=== PATIENT | female | born 1970 | race African-American/Black ===

== ENCOUNTER 2016-09-01 19:40 | Emergency (ER) | payer SELFPAY ==
--- NOTE | 2016-09-01 20:22 | ER Document Report ---
HPI - HPI Patient complains to provider of: sore throat, ear pain Onset: Other - 6 days Onset/Duration: Persistent Quality of pain: Achy Severity: Severe Pain Level: 5 Context: Patient presents to the emergency department with complaints of sore throat bones: Ears her for the past 6 days. Patient reports she has tried Mucinex warm salt water gargles and NyQuil and still has not relieved her symptoms. She denies fever diarrhea but reports she has been nauseated. No known exposure to strep but patient works at [employer]. Patient uses home O2 at night while she sleeps. Associated Symptoms: Earache, Nausea, Other - cold Exacerbated by: Denies Relieved by: Denies Similar symptoms previously: No Recently seen / treated by doctor: No - REPRODUCTIVE LMP: na Reproductive: DENIES: : - DERM Skin Color: Normal Past Medical History - General Information source: Patient - Social History Smoking Status: Unknown if Ever Smoked Cigarette use (# per day): No Frequency of alcohol use: None Drug Abuse: None Occupation: [employer] Family History: DM, Hypertension Patient has suicidal ideation: No Patient has homicidal ideation: No - Past Medical History Cardiac Medical History: Reports: Hx Hypertension Pulmonary Medical History: Reports: Hx Asthma, Hx Pneumonia Denies: Hx Tuberculosis Neurological Medical History: Denies: Hx Seizures Renal/ Medical History: Denies: Hx Peritoneal Dialysis Musculoskeltal Medical History: Reports Hx Arthritis - left knee Past Surgical History: Reports: Hx Oral Surgery - Immunizations Hx Diphtheria, Pertussis, Tetanus Vaccination: Yes Vertical Provider Document - CONSTITUTIONAL Agree With Documented VS: Yes Exam Limitations: No Limitations General Appearance: WD/WN, No Apparent Distress - nontoxic looking - INFECTION CONTROL TRAVEL OUTSIDE OF THE [place] IN LAST 30 DAYS: No - HEENT HEENT: Atraumatic, Normocephalic, Pharyngeal Exudate, Pharyngeal Erythema - No peritonsillar abscess good clear voice no trismus, Tympanic Membrane Red - left. negative: Conjuctival Injection, Pharyngeal Tenderness, Tympanic Membrane Bulging - NECK Neck: Normal Inspection, Supple. negative: Lymphadenopathy-Left, Lymphadenopathy-Right - RESPIRATORY Respiratory: Breath Sounds Normal, No Respiratory Distress O2 Sat by Pulse Oximetry: 96 - CARDIOVASCULAR Cardiovascular: Regular Rate, Regular Rhythm - GI/ABDOMEN Gastrointestinal: Abdomen Soft, Abdomen Non-Tender - MUSCULOSKELETAL/EXTREMETIES Musculoskeletal/Extremeties: ASHISH VIGIL - NEURO Level of Consciousness: Awake, Alert, Appropriate Motor/Sensory: No Motor Deficit - DERM Integumentary: Warm, Dry, No Rash Course - Re-evaluation Re-evalutation: 09/01/16 20:21 Patient instructed on pending strep p.o. fluids offered. 09/01/16 20:48 Patient instructed on negative strep test for throat culture pending. Patient instructed on omnicef for otitis media. Instructed to push fluids follow-up with primary care provider for recheck. She verbalized understanding to all instructions - Vital Signs Vital signs: Temp Pulse Resp BP Pulse Ox 99.2 F 105 H 20 124/73 96 09/01/16 19:53 09/01/16 19:53 09/01/16 19:53 09/01/16 19:53 09/01/16 19:53 Discharge - Discharge Clinical Impression: Sore throat, Elevated blood pressure reading Otitis media Qualifiers: Otitis media type: unspecified Laterality: left Chronicity: acute Condition: Stable Disposition: HOME, SELF-CARE Instructions: Sore Throat ([facility]), Steroid Medication Injection, Cephalosporins ( [facility]) Additional Instructions: *You have been evaluated for a sore throat, otitis media *The strep test is negative. A throat culture is pending. You will be contacted should you need different antibiotics. *Take medication as prescribed *Warm salt water gargles and throat lozenges for comfort *Do not let anyone drink/eat after you *Good hand washing *Follow-up with a primary care provider for recheck within one week *Return to ED for worsening condition change, needs Monitor your blood pressure. Your blood pressure was elevated today. This may be because you were anxious, in pain or because you need medication. It is important to follow up with your primary care provider for full evaluation. Prescriptions: Cefdinir [Omnicef 300 mg Capsule] 1 cap PO BID #20 capsule Forms: Elevated Blood Pressure
[2016-09-01] MEDS ORDERED: AMOXICILLIN TRIHYDRATE 500 MG CAPSULE PO ONE (20:49)
[2016-09-01 20:57] VITALS: BP 142/69
[2016-09-01] MEDS ORDERED: DEXAMETHASONE SOD PHOS INJ 10 MG/1 ML VIAL IM ONE (21:08)
== END 2016-09-01 21:30 | disposition home or self-care (01) ==
LOC: ER 19:40
DX: H02.9 Unspecified disorder of eyelid (principal); H66.92 Otitis media, unspecified, left ear; R11.0 Nausea; I10 Essential (primary) hypertension; J45.909 Unspecified asthma, uncomplicated; Z99.81 Dependence on supplemental oxygen
CPT/HCPCS: 99283; 96372; 87070; 87880; J1100

== ENCOUNTER 2017-01-28 14:59 | Emergency (ER) | payer SELFPAY ==
[2017-01-28] MEDS ORDERED: ASPIRIN 81 MG TABLET, CHEWABLE PO ONE (16:21)
--- NOTE | 2017-01-28 16:24 | ER Document Report ---
ED Medical Screen (RME) - General Chief Complaint: Abdominal Cramping Stated Complaint: ABDOMINAL PAIN Time Seen by Provider: 01/28/17 16:08 Mode of Arrival: Ambulatory Information source: Patient Notes: 46-year-old female presents to ED for chest pain abdominal cramping pain all over with cramping to arms and legs for a week. She states sometimes her whole body will cramp up and stay that way for about an hour then sometimes it will go away. She states she drinks water and that she urinates so much and then the cramping starts again. She states she does not remember when her last bowel movement was. She states she took for stool softeners and some mag citrate last night and had several small bowel movements but not of large wound. States she is not hungry at this time. Lungs clear abdomen tender. Patient is a very obese female. She states she also has pain in her right heel and is very painful to stand to walk on it. I have greeted and performed a rapid initial assessment of this patient. A comprehensive ED assessment and evaluation of the patient, analysis of test results and completion of medical decision making process will be conducted by an additional ED providers. TRAVEL OUTSIDE OF THE [place] IN LAST 30 DAYS: No - HPI Onset: Last week Onset/Duration: Intermittent Quality of pain: Achy, Cramping, Sharp Severity: Moderate Pain Level: 4 Associated Symptoms: Abdominal pain, Body/muscle aches, Chest pain, Other - right heel pain - Related Data Smoking: Non-smoker Frequency of alcohol use: None Drug Abuse: None Allergies/Adverse Reactions: No Known Allergies Allergy (Unverified 01/28/17 16:06) Past Medical History - Social History Chew tobacco use (# tins/day): No Frequency of alcohol use: None Drug Abuse: None - Past Medical History Cardiac Medical History: Reports: Hx Hypertension Pulmonary Medical History: Reports: Hx Asthma, Hx Pneumonia Denies: Hx Tuberculosis Neurological Medical History: Denies: Hx Seizures Renal/ Medical History: Denies: Hx Peritoneal Dialysis Musculoskeltal Medical History: Reports Hx Arthritis - left knee Past Surgical History: Reports: Hx Oral Surgery - Immunizations Hx Diphtheria, Pertussis, Tetanus Vaccination: Yes Physical Exam - Vital signs Vitals: Temp Pulse Resp BP Pulse Ox 98.5 F 95 20 153/97 H 96 01/28/17 15:30 01/28/17 15:30 01/28/17 15:30 01/28/17 15:30 01/28/17 15:30 Course - Vital Signs Vital signs: Temp Pulse Resp BP Pulse Ox 98.5 F 95 18 153/97 H 96 01/28/17 15:30 01/28/17 15:30 01/28/17 16:05 01/28/17 15:30 01/28/17 15:30
[2017-01-28] MEDS ORDERED: NORMAL SALINE 1000 ML 1,000 ML IV ONE (16:40)
[2017-01-28 17:15] LABS: ABSOLUTE EOSINOPHILS # (AUTO) 0.2 10^3/uL (0.0-0.6); ABSOLUTE LYMPHOCYTES (AUTO) 1.5 10^3/uL (0.5-4.7); ABSOLUTE MONOCYTES (AUTO) 0.9 10^3/uL (0.1-1.4); ABSOLUTE NEUT (AUTO) 4.1 10^3/uL (1.7-8.2); BASOPHILS % (AUTO) 0.4 % (0-2); EOSINOPHILS % (AUTO) 2.5 % (0-6); HEMATOCRIT 38.8 % (36.0-47.0); HEMOGLOBIN 12.1 g/dL (12.0-15.5); HGB HCT DIFFERENCE -2.5; LYMPHOCYTES % (AUTO) 21.9 % (13-45); MEAN CORPUSCULAR HEMOGLOBIN 23.5 pg (27.0-33.4); MEAN CORPUSCULAR HGB CONC 31.1 g/dL (32.0-36.0); MEAN CORPUSCULAR VOLUME 76 fl (80-97); MONOCYTES % (AUTO) 13.6 % (3-13); RED BLOOD COUNT 5.14 10^6/uL (3.72-5.28); RED CELL DISTRIBUTION WIDTH 15.8 % (11.5-14.0); SEGMENTED NEUTROPHILS % (AUTO) 61.6 % (42-78); WHITE BLOOD COUNT 6.6 10^3/uL (4.0-10.5)
[2017-01-28 17:39] LABS: ALANINE AMINOTRANSFERASE 35 U/L (9-52); ALBUMIN 4.2 g/dL (3.5-5.0); ALKALINE PHOSPHATASE 122 U/L (38-126); ASPARTATE AMINO TRANSFERASE 29 U/L (14-36); BILIRUBIN,DIRECT 0.5 mg/dL (0.0-0.4); BILIRUBIN,TOTAL 0.7 mg/dL (0.2-1.3); BLOOD UREA NITROGEN 15 mg/dL (7-20); CALCIUM 9.2 mg/dL (8.4-10.2); CHLORIDE 92 mmol/L (98-107); CREATINE KINASE 138 U/L (30-135); CREATININE RESULT 0.87 mg/dL (0.52-1.25); GLUCOSE 103 mg/dL (75-110); POTASSIUM 4.5 mmol/L (3.6-5.0); SODIUM 141.2 mmol/L (137-145); TOTAL PROTEIN 8.4 g/dL (6.3-8.2)
--- NOTE | 2017-01-28 17:39 | RADIOLOGY REPORT (SQ) ---
EXAM DESCRIPTION: ACUTE ABDOMEN SERIES COMPLETED DATE/TIME: 01/28/2017 5:26 pm REASON FOR STUDY: abdominal and chest pain COMPARISON: None. NUMBER OF VIEWS: Three views. TECHNIQUE: Frontal chest, supine abdomen and upright/decubitus abdomen radiographic images acquired. LIMITATIONS: None. FINDINGS: CHEST: Lungs clear of infiltrates. FREE AIR: None. No abnormal gas collections. BOWEL GAS PATTERN: Nonobstructive pattern. No dilated loops or air fluid levels. CALCIFICATIONS: No suspicious calcifications. HARDWARE: None in the abdomen. SOFT TISSUES: No gross mass or suggestion of organomegaly. BONES: No acute fracture. No worrisome bone lesions. Degenerative changes are identified in the low er lumbar spine at the level of the pubic symphysis. OTHER: No other significant finding. IMPRESSION: NO RADIOGRAPHIC EVIDENCE FOR ACUTE ABDOMINAL DISEASE. TECHNICAL DOCUMENTATION: JOB ID: [id number] [employer]- All Rights Reserved
--- NOTE | 2017-01-28 17:39 | RADIOLOGY REPORT (SQ) ---
EXAM DESCRIPTION: FOOT RIGHT COMPLETE COMPLETED DATE/TIME: 01/28/2017 5:26 pm REASON FOR STUDY: pain in right heel COMPARISON: 09/11/2010 NUMBER OF VIEWS: Three views. TECHNIQUE: AP, lateral and oblique radiographic images acquired of the right foot. LIMITATIONS: None. FINDINGS: MINERALIZATION: Normal. BONES: No fracture dislocation. There is a plantar calcaneal spur. There is a prominent os navicula re, an accessory ossicle. JOINTS: No effusions. SOFT TISSUES: No soft tissue swelling. No foreign body. OTHER: No other significant finding. IMPRESSION: Calcaneal spur. TECHNICAL DOCUMENTATION: JOB ID: [id number] [employer]- All Rights Reserved
[2017-01-28 17:42] LABS: ANION GAP 9 (5-19)
[2017-01-28 17:44] LABS: APPEARANCE,URINE CLEAR; BILIRUBIN,URINE NEGATIVE (NEGATIVE); GLUCOSE, URINE NEGATIVE (NEGATIVE); KETONES,URINE NEGATIVE (NEGATIVE); LEUKOCYTE ESTERASE,URINE NEGATIVE (NEGATIVE); NITRITE,URINE NEGATIVE (NEGATIVE); PROTEIN,URINE NEGATIVE (NEGATIVE); URINE SPECIFIC GRAVITY 1.004; UROBILINOGEN,URINE NEGATIVE mg/dL (<2.0)
[2017-01-28 17:51] LABS: CREATINE KINASE MB 1.09 ng/mL (<4.55)
[2017-01-28 17:54] LABS: TROPONIN I < 0.012 ng/mL
[2017-01-28 18:04] LABS: CARBON DIOXIDE 40 mmol/L (22-30)
--- NOTE | 2017-01-28 18:27 | EKG REPORT ---
SEVERITY:- NORMAL ECG - SINUS RHYTHM : Confirmed by: Mj Eller 28-Jan-2017 18:27:06
[2017-01-28] MEDS ORDERED: MINERAL OIL 30 ML UDCUP PR ONE (19:32)
--- NOTE | 2017-01-28 19:40 | ER Document Report ---
ED General - General Chief Complaint: Abdominal Cramping Stated Complaint: ABDOMINAL PAIN Time Seen by Provider: 01/28/17 16:08 Mode of Arrival: Ambulatory TRAVEL OUTSIDE OF THE [place] IN LAST 30 DAYS: No - HPI Notes: Patient is a 46-year-old female with a history of obstructive sleep apnea who presents the ED complaining of abdominal cramping, constipation 1.5 weeks. Patient states that she feels full in her abdomen and has not had a complete bowel movement in about 1-1/2 weeks. She still eating and drinking without any difficulties. She is still urinating normally. Patient states that she did have a few small bowel movements over the last couple days that were small and pebbly. Patient states that when the abdominal cramping starts she will develop cramping in her neck and her arm as well. Patient states that the cramping can last for about a half an hour at a time. This cramping has been ongoing over the last 1.5 weeks as well. Patient has tried some over-the- counter meds and stool softeners with minimal relief. Patient denies any drug allergies, smoking, drug use, or alcohol intake. Pt denies any cardiac history or abdominal surgeries. Denies h/o any clotting otherwise. No recent illness. Denies any headache, fever, neck pain, URI, sore throat, chest pain, palpitations, syncope, cough, shortness of breath, wheeze, dyspnea, nausea/ vomiting/diarrhea, urinary retention, dysuria, hematuria, back pain, loss of control of bowel or bladder, numbness/tingling, saddle anesthesia, muscle paralysis/weakness, or rash. Pt does not use BPAP/CPAP. + heel pain, no injury (rt) - Related Data Allergies/Adverse Reactions: No Known Allergies Allergy (Unverified 01/28/17 16:06) Past Medical History - General Information source: Patient - Social History Smoking Status: Never Smoker Chew tobacco use (# tins/day): No Frequency of alcohol use: None Drug Abuse: None Family History: DM, Hypertension Patient has suicidal ideation: No Patient has homicidal ideation: No - Past Medical History Cardiac Medical History: Reports: None Pulmonary Medical History: Reports: Hx Asthma, Hx Pneumonia Denies: Hx Tuberculosis Neurological Medical History: Denies: Hx Seizures Renal/ Medical History: Denies: Hx Peritoneal Dialysis Musculoskeltal Medical History: Reports Hx Arthritis - left knee Past Surgical History: Reports: Hx Oral Surgery - Immunizations Hx Diphtheria, Pertussis, Tetanus Vaccination: Yes Review of Systems - Review of Systems Notes: REVIEW OF SYSTEMS: CONSTITUTIONAL : Denies fever, chills, or sweats. Denies recent illness. EENT: Denies eye, ear, throat, or mouth pain or symptoms. Denies nasal or sinus congestion or discharge. Denies throat, tongue, or mouth swelling or difficulty swallowing. CARDIOVASCULAR: Denies chest pain. Denies palpitations or racing or irregular heart beat. Denies ankle edema. RESPIRATORY: Denies cough, cold, or chest congestion. Denies shortness of breath, difficulty breathing, or wheezing. GASTROINTESTINAL: see hpi. no melena/hematochezia GENITOURINARY: Denies difficulty urinating, painful urination, burning, frequency, blood in urine, or discharge. MUSCULOSKELETAL: see hpi--cramps SKIN: Denies rash, lesions or sores. NEUROLOGICAL: Denies confusion or altered mental status. Denies passing out or loss of consciousness. Denies dizziness or lightheadedness. Denies headache. Denies weakness or paralysis or loss of use of either side. Denies problems with gait or speech. Denies sensory loss, numbness, or tingling. ALL OTHER SYSTEMS REVIEWED AND NEGATIVE. Dictation was performed using [employer] voice recognition software Female Genitourinary: No symptoms reported Physical Exam - Vital signs Vitals: Temp Pulse Resp BP Pulse Ox 98.5 F 95 20 153/97 H 96 01/28/17 15:30 01/28/17 15:30 01/28/17 15:30 01/28/17 15:30 01/28/17 15:30 Notes: PHYSICAL EXAMINATION: GENERAL: Well-appearing, well-nourished and in no acute distress. A&Ox4 HEAD: Atraumatic, normocephalic. EYES: Pupils equal round and reactive to light, extraocular movements intact, sclera anicteric, conjunctiva are normal. ENT: Nares patent and without discharge. oropharynx clear without exudates. No tonsilar hypertrophy or erythema. Moist mucous membranes. No sinus tenderness. NECK: Normal range of motion, supple without lymphadenopathy. No rigidity/ meningismus. LUNGS: Breath sounds clear to auscultation bilaterally and equal. No wheezes rales or rhonchi. HEART: Regular rate and rhythm without murmurs, rubs, gallops. ABDOMEN: Soft, nontender, nondistended abdomen. No guarding, no rebound. No masses appreciated. Normal bowel sounds present. No CVA tenderness bilaterally. Obese. Musculoskeletal: Ext b/l: FROM to passive/active. Strength 5+/5. No focal deficits or cramps. + mild tenderness to the rt heel. Extremities: Trace pitting edema b/l LE. Peripheral pulses 2+. Capillary refill less than 3 seconds. NEUROLOGICAL: Cranial nerves grossly intact. Normal speech, normal gait. Normal sensory, motor exams PSYCH: Normal mood, normal affect. SKIN: Warm, Dry, normal turgor, no rashes or lesions noted. Course - Re-evaluation Re-evalutation: 01/28/17 22:18 Patient is an afebrile, well-hydrated, 46-year-old female who presents to the ED with constipation and abd cramping. Vitals are stable. PE is otherwise unremarkable. X-ray did reveal some stool, but no obstruction. CBC, CMP, lipase, , urinalysis all unremarkable for any acute pathology. Cardiac enzymes 2/EKG 2 unremarkable for any acute pathology as well. Patient has a heart score of 1. In enema was provided today. Patient states that she had a good bowel movement with the enema and feels much better. She has not had any other issues of cramping. Patient is tolerating p.o. Low suspicion/risk for any ACS, PE, pneumothorax, pericarditis, dissection, sepsis, meningitis, acute abdomen. Patient is aware that her condition can change from initial presentation and she needs to monitor symptoms closely and seek medical attention with any acute changes. I will send her home with a prescription for MiraLAX to use as directed. Increase water and fiber intake. Recheck with your PCM in 2-3 days. Return to the ED with any worsening/concerning symptoms otherwise as reviewed discharge. Patient is in agreement. pt does have an elevated CO2. Pt has JESSICA and does not use her CPAP/BPAP--to discuss further with her PCM. - Vital Signs Vital signs: Temp Pulse Resp BP Pulse Ox 98.5 F 95 18 153/97 H 96 01/28/17 15:30 01/28/17 15:30 01/28/17 16:05 10/16/17 15:30 01/28/17 15:30 - Laboratory Result Diagrams: 01/28/17 16:48 01/28/17 16:48 Laboratory results interpreted by me: 01/28/17 01/28/17 01/28/17 16:48 16:48 20:45 MCV 76 L MCH 23.5 L MCHC 31.1 L RDW 15.8 H Monocytes % 13.6 H VBG pCO2 65.5 H* VBG HCO3 37.1 H Chloride 92 L Carbon Dioxide 40 H* Direct Bilirubin 0.5 H Creatine Kinase 138 H Total Protein 8.4 H Discharge - Discharge Clinical Impression: Constipation Qualifiers: Constipation type: unspecified constipation type Qualified Code(s): K59.00 - Constipation, unspecified Condition: Stable Disposition: HOME, SELF-CARE Instructions: Constipation ([facility]), Stool Softener ([facility]) Additional Instructions: Maintain adequate fluid and food intake--increase fiber and water intake [place]rose diet ([employer] Bananas, rice, apples, toast, etc tylenol if needed Monitor for any worsening symptoms Miralax 1 capful twice daily for 3-4 days, then one capful daily thereafter to maintain soft stools Make sure you are staying hydrated enough to urinate and have normal BM's Recheck with your PCM in 2-3 days Consider consult with Gastroenterology for ongoing/worsening symptoms Return to the ED with any worsening symptoms and/or development of fever, headache, chest pain, palpitations, syncope, shortness of breath, trouble breathing, abdominal pain, n/v/d, blood in stool/urine, weakness, or other worsening symptoms that are concerning to you. Prescriptions: Polyethylene Glycol 3350 [Miralax] 1 cap PO DAILY #527 powder Forms: Elevated Blood Pressure, Return to Work Referrals: KARI MEA MD [ACTIVE STAFF] - Follow up as needed
[2017-01-28 21:04] LABS: VENOUS BLOOD BASE EXCESS 9.5 mmol/L; VENOUS BLOOD HCO3 37.1 mmol/L (20-32); VENOUS BLOOD PH 7.37 (7.30-7.42)
[2017-01-28 21:10] LABS: VENOUS BLOOD PCO2 65.5 mmHg (35-63)
[2017-01-28 22:46] VITALS: BP 113/65
--- NOTE | 2017-01-28 23:59 | EKG REPORT ---
SEVERITY:- NORMAL ECG - SINUS RHYTHM : Confirmed by: Mj Eller 28-Jan-2017 23:58:34
== END 2017-01-28 22:57 | disposition home or self-care (01) ==
LOC: ER 14:59
DX: K59.00 Constipation, unspecified (principal); R10.9 Unspecified abdominal pain; R25.2 Cramp and spasm
CPT/HCPCS: 93005; 99284; 36415; 82553; 82962; 82550; 83690; 84703; 85025; 80053; 81001; 84484; 82803; 74022; 73630; 93010; J3490; J7030

== ENCOUNTER 2017-05-17 00:22 | Inpatient (IN) | payer SELFPAY ==
[2017-05-17] MEDS ORDERED: IPRATROPIUM/ALBUTEROL 0.5-2.5 MG/3 ML AMPUL NEB ONE ×2 (02:42→06:05)
--- NOTE | 2017-05-17 05:02 | ER Document Report ---
ED Flu Like - General Chief Complaint: Flu Symptoms Stated Complaint: FLU LIKE SYMPTOMS Mode of Arrival: Ambulatory Information source: Patient Notes: Patient is a 46-year-old female who presents to the ER today for cough, congestion, wheezing for over a week now. Patient is not an asthmatic. Patient admits to chills but does not know if she has had a fever or not. She states she is short of breath And admits to some pain with breathing, especially after coughing spells. She also admits to headache. TRAVEL OUTSIDE OF THE [place] IN LAST 30 DAYS: No - Related Data Allergies/Adverse Reactions: No Known Allergies Allergy (Verified 05/17/17 01:12) Past Medical History - General Information source: Patient - Social History Smoking Status: Unknown if Ever Smoked Family History: DM, Hypertension - Past Medical History Cardiac Medical History: Reports: Hx Hypertension Pulmonary Medical History: Reports: Hx Asthma, Hx Pneumonia Denies: Hx Tuberculosis Neurological Medical History: Denies: Hx Seizures Renal/ Medical History: Denies: Hx Peritoneal Dialysis Musculoskeltal Medical History: Reports Hx Arthritis - left knee Past Surgical History: Reports: Hx Oral Surgery - Immunizations Hx Diphtheria, Pertussis, Tetanus Vaccination: Yes Review of Systems - Review of Systems Constitutional: See HPI EENT: No symptoms reported Cardiovascular: No symptoms reported Respiratory: See HPI Gastrointestinal: No symptoms reported Genitourinary: No symptoms reported Female Genitourinary: No symptoms reported Musculoskeletal: No symptoms reported Skin: No symptoms reported Hematologic/Lymphatic: No symptoms reported Neurological/Psychological: No symptoms reported Physical Exam - Vital signs Vitals: Temp Pulse BP Pulse Ox 97.9 F 85 146/81 H 92 05/17/17 01:17 05/17/17 01:17 05/17/17 01:17 05/17/17 01:17 - Notes Notes: PHYSICAL EXAMINATION: GENERAL: Mildly ill-appearing, but in no acute distress. HEAD: Atraumatic, normocephalic. EYES: Pupils equal round and reactive to light, extraocular movements intact, sclera anicteric, conjunctiva are normal. ENT: ear canals without erythema or foreign body, TMs pearly murillo with good bony landmarks, nares patent, oropharynx clear without exudates. Moist mucous membranes. Airway patent NECK: Normal range of motion, supple without lymphadenopathy LUNGS: Moderate expiratory wheezes, rhonchi heard in bilateral lower lung smiley , no rales HEART: Regular rate and rhythm without murmurs EXTREMITIES: Normal range of motion, no pitting edema. No cyanosis. NEUROLOGICAL: Cranial nerves grossly intact. Normal sensory/motor exams. PSYCH: Normal mood, normal affect. SKIN: Warm, Dry, normal turgor, no rashes or lesions noted Course - Re-evaluation Re-evalutation: 05/17/17 08:14 After multiple breathing treatments, prednisone, patient remains hypoxic and needs to be put on oxygen. Patient cannot be ambulated without oxygen and stay above 93%, dropping to 88% at one point. Hospitalist called to admit patient at this time awaiting callback. Azithromycin started. - Vital Signs Vital signs: Temp Pulse Resp BP Pulse Ox 97.9 F 78 20 124/74 93 05/17/17 01:17 05/17/17 05:54 05/17/17 06:01 05/17/17 06:25 05/17/17 06:24 Discharge - Discharge Clinical Impression: Hypoxia Pneumonia Qualifiers: Pneumonia type: due to unspecified organism Laterality: unspecified laterality Lung location: unspecified part of lung Qualified Code(s): J18.9 - Pneumonia, unspecified organism Condition: Stable Disposition: ADMITTED INPATIENT Admitting Provider: Hospitalist - Dr. Nagel Unit Admitted: Medical Floor
[2017-05-17 05:17] LABS: A TYPE INFLUENZA AG NEGATIVE (NEGATIVE); B INFLUENZA AG NEGATIVE (NEGATIVE)
[2017-05-17] MEDS ORDERED: PREDNISONE 20 MG TABLET PO ONE (06:05)
[2017-05-17] MEDS ORDERED: GUAIFENESIN/D-METHORPHAN (200-20 MG) SYRUP 10 ML PO ONE (06:05)
--- NOTE | 2017-05-17 07:53 | EKG REPORT ---
SEVERITY:- NORMAL ECG - SINUS RHYTHM : Confirmed by: Robbi Desai MD 17-May-2017 07:52:55
[2017-05-17] MEDS ORDERED: AZITHROMYCIN INJ 500 MG VIAL IV ONE (08:09)
[2017-05-17] MEDS ORDERED: KETOROLAC TROMETHAMINE INJ/PF 30 MG/1 ML SDV IV ONE (08:30)
--- NOTE | 2017-05-17 09:20 | RADIOLOGY REPORT (SQ) ---
EXAM DESCRIPTION: CHEST PA/LAT COMPLETED DATE/TIME: 05/17/2017 9:08 am REASON FOR STUDY: cough, body aches COMPARISON: Chest films 11/14/2009, 06/30/2014, 03/14/2015 EXAM PARAMETERS: NUMBER OF VIEWS: two views TECHNIQUE: Digital Frontal and Lateral radiographic views of the chest acquired. RADIATION DOSE: NA LIMITATIONS: none FINDINGS: LUNGS AND PLEURA: No opacities, masses or pneumothorax. No pleural effusion. MEDIASTINUM AND HILAR STRUCTURES: No masses or contour abnormalities. HEART AND VASCULAR STRUCTURES: Heart normal size. No evidence for failure. BONES: No acute findings. HARDWARE: None in the chest. OTHER: No other significant finding. IMPRESSION: NO SIGNIFICANT RADIOGRAPHIC FINDING IN THE CHEST. TECHNICAL DOCUMENTATION: JOB ID: [id number] [employer]- All Rights Reserved
[2017-05-17] MEDS ORDERED: ONDANSETRON HCL INJ/PF 4 MG/2 ML SDV IV PRN (10:47)
[2017-05-17] MEDS ORDERED: TEMAZEPAM 15 MG CAPSULE PO PRN (10:47)
[2017-05-17] MEDS ORDERED: GUAIFENESIN/D-METHORPHAN (200-20 MG) SYRUP 10 ML PO PRN (10:58)
--- NOTE | 2017-05-17 11:16 | PDOC H&P ---
History of Present Illness Admission Date/PCP: 05/17/17 08:33 Patient complains of: Cough for about 1 week with occasional white productive sputum. She denies any fever nausea vomiting. She said she tried to self medicate at home using [id number] cough medicines as well as a family members bronchodilators but she decided to come in this morning as she had difficulty sleeping overnight. History of Present Illness: AMALIA ABDI is a 46 year old female Past Medical History Cardiac Medical History: Reports: Hypertension Pulmonary Medical History: Reports: Asthma, Pneumonia Denies: Tuberculosis Neurological Medical History: Denies: Seizures Endocrine Medical History: Reports: Obesity Musculoskeltal Medical History: Reports: Arthritis - left knee Psychiatric Medical History: Reports: None Past Surgical History Past Surgical History: Reports: None Social History Smoking Status: Unknown if Ever Smoked Frequency of Alcohol Use: None Hx Recreational Drug Use: No Hx Prescription Drug Abuse: No Family History Family History: DM, Hypertension Parental Family History Reviewed: Yes - Mother has COPD Children Family History Reviewed: No Sibling(s) Family History Reviewed.: No Medication/Allergy Home Medications: No Home Medications 05/17/17 Allergies/Adverse Reactions: No Known Allergies Allergy (Verified 05/17/17 01:12) Review of Systems Constitutional: PRESENT: as per HPI Eyes: ABSENT: visual disturbances Ears: ABSENT: hearing changes Nose, Mouth, and Throat: PRESENT: as per HPI Cardiovascular: ABSENT: chest pain, dyspnea on exertion, edema, orthropnea, palpitations Respiratory: PRESENT: as per HPI, cough Gastrointestinal: ABSENT: abdominal pain, constipation, diarrhea, hematemesis, hematochezia, nausea, vomiting Genitourinary: ABSENT: dysuria, hematuria Musculoskeletal: ABSENT: joint swelling Integumentary: ABSENT: rash, wounds Neurological: ABSENT: abnormal gait, abnormal speech, confusion, dizziness, focal weakness, syncope Psychiatric: ABSENT: anxiety, depression, homidical ideation, suicidal ideation Endocrine: ABSENT: cold intolerance, heat intolerance, polydipsia, polyuria Hematologic/Lymphatic: ABSENT: easy bleeding, easy bruising Physical Exam Vital Signs: Temp Pulse Resp BP Pulse Ox 97.9 F 78 20 124/74 93 05/17/17 01:17 05/17/17 05:54 05/17/17 06:01 05/17/17 06:25 05/17/17 06:24 General appearance: PRESENT: no acute distress, cooperative, obese, well- developed, well-nourished Head exam: PRESENT: atraumatic, normocephalic Eye exam: PRESENT: conjunctiva pink, EOMI, PERRLA. ABSENT: scleral icterus Ear exam: PRESENT: normal external ear exam Mouth exam: PRESENT: moist, tongue midline Neck exam: ABSENT: carotid bruit, JVD, lymphadenopathy, thyromegaly Respiratory exam: PRESENT: decreased breath sounds, rhonchi, wheezes - Bilaterally. ABSENT: rales Cardiovascular exam: PRESENT: RRR. ABSENT: diastolic murmur, rubs, systolic murmur Pulses: PRESENT: normal dorsalis pedis pul Vascular exam: PRESENT: normal capillary refill GI/Abdominal exam: PRESENT: normal bowel sounds, soft. ABSENT: distended, guarding, mass, organolmegaly, rebound, tenderness Rectal exam: PRESENT: deferred Extremities exam: PRESENT: full ROM. ABSENT: calf tenderness, clubbing, pedal edema Musculoskeletal exam: PRESENT: ambulatory Neurological exam: PRESENT: alert, awake, oriented to person, oriented to place , oriented to time, oriented to situation, CN II-XII grossly intact. ABSENT: motor sensory deficit Psychiatric exam: PRESENT: appropriate affect, normal mood. ABSENT: homicidal ideation, suicidal ideation Skin exam: PRESENT: dry, intact, warm. ABSENT: cyanosis, rash Results Laboratory Results: Pending Impressions: Chest X-Ray 05/17/17 05:12 IMPRESSION: NO SIGNIFICANT RADIOGRAPHIC FINDING IN THE CHEST. Assessment & Plan - Diagnosis (1) Acute respiratory failure Qualifiers: Respiratory failure complication: hypoxia Qualified Code(s): J96.01 - Acute respiratory failure with hypoxia Is this a current diagnosis for this admission?: Yes Plan: Oxygen support, bronchodilators and steroids. (2) Pneumonia Qualifiers: Pneumonia type: due to unspecified organism Laterality: unspecified laterality Lung location: unspecified part of lung Qualified Code(s): J18.9 - Pneumonia, unspecified organism Is this a current diagnosis for this admission?: Yes Plan: Likely atypical including Viral. Will place on Empiric Levaquin and antitussives and continue supportive care (3) Morbid (severe) obesity due to excess calories Is this a current diagnosis for this admission?: Yes Plan: Weight loss encouraged - Time Time Spent: 30 to 50 Minutes Medications reviewed and adjusted accordingly: Yes Anticipated discharge: Home Within: within 48 hours - Inpatient Certification Medical Necessity: Need for Nebulizer Therapy and Monitoring of Response, Need for IV Antibiotics - Plan Summary Plan Summary: Obtain routine CBC, BMP as none currently available
[2017-05-17 12:09] LABS: ABSOLUTE LYMPHOCYTES (AUTO) 0.5 10^3/uL (0.5-4.7); ABSOLUTE MONOCYTES (AUTO) 0.4 10^3/uL (0.1-1.4); ABSOLUTE NEUT (AUTO) 4.9 10^3/uL (1.7-8.2); BASOPHILS % (AUTO) 0.3 % (0-2); EOSINOPHILS % (AUTO) 0.5 % (0-6); HEMATOCRIT 38.2 % (36.0-47.0); HEMOGLOBIN 12.1 g/dL (12.0-15.5); LYMPHOCYTES % (AUTO) 9.2 % (13-45); MEAN CORPUSCULAR HEMOGLOBIN 23.9 pg (27.0-33.4); MEAN CORPUSCULAR HGB CONC 31.6 g/dL (32.0-36.0); MEAN CORPUSCULAR VOLUME 76 fl (80-97); MONOCYTES % (AUTO) 6.1 % (3-13); PLATELET COUNT 221 10^3/uL (150-450); RED BLOOD COUNT 5.05 10^6/uL (3.72-5.28); RED CELL DISTRIBUTION WIDTH 16.7 % (11.5-14.0); SEGMENTED NEUTROPHILS % (AUTO) 83.9 % (42-78); TOTAL CELLS COUNTED % (AUTO) 100 %; WHITE BLOOD COUNT 5.9 10^3/uL (4.0-10.5)
[2017-05-17] MEDS ORDERED: LEVOFLOXACIN 750 MG TABLET PO ONE ×2 (12:30→17:00)
[2017-05-17 12:31] LABS: ANION GAP 9 (5-19); BLOOD UREA NITROGEN 14 mg/dL (7-20); CALCIUM 8.8 mg/dL (8.4-10.2); CARBON DIOXIDE 34 mmol/L (22-30); CHLORIDE 97 mmol/L (98-107); GLUCOSE 130 mg/dL (75-110); MAGNESIUM 2.3 mg/dL (1.6-2.3); POTASSIUM 5.1 mmol/L (3.6-5.0)
[2017-05-17] MEDS ORDERED: ENOXAPARIN SODIUM INJ 40 MG/0.4 ML DISP.SYRIN SUBCUT ONE ×2 (13:00→17:00)
[2017-05-17] MEDS ORDERED: BENZONATATE 100 MG CAPSULE PO SCH (14:00)
[2017-05-17] MEDS: ALBUTEROL SULFATE 0.083% NEB 2.5 MG/3 ML AMPUL NEB SCH ×2 (14:08→20:33)
[2017-05-17] MEDS: BENZONATATE 100 MG CAPSULE PO SCH (17:59)
[2017-05-17] MEDS: 1/2 NORMAL SALINE 1,000 ML IV PRN (18:09)
[2017-05-17] MEDS: OXYCODONE-ACETAMINOPHEN 5-325 MG TABLET PO PRN (22:04)
[2017-05-18] MEDS: BENZONATATE 100 MG CAPSULE PO SCH ×3 (01:26→17:03)
[2017-05-18] MEDS: ALBUTEROL SULFATE 0.083% NEB 2.5 MG/3 ML AMPUL NEB SCH ×4 (01:39→19:44)
[2017-05-18] MEDS: OXYCODONE-ACETAMINOPHEN 5-325 MG TABLET PO PRN (04:09)
[2017-05-18] MEDS: IPRATROPIUM/ALBUTEROL 0.5-2.5 MG/3 ML AMPUL NEB PRN ×2 (04:37→22:48)
[2017-05-18] MEDS: 1/2 NORMAL SALINE 1,000 ML IV PRN (04:41)
[2017-05-18] MEDS: ENOXAPARIN SODIUM INJ 40 MG/0.4 ML DISP.SYRIN SUBCUT SCH (09:32)
[2017-05-18] MEDS: DOCUSATE SODIUM 100 MG CAPSULE PO SCH (09:34)
[2017-05-18] MEDS: LEVOFLOXACIN 750 MG TABLET PO SCH (09:34)
[2017-05-18] MEDS ORDERED: PREDNISONE 20 MG TABLET PO SCH (10:00)
[2017-05-18] MEDS ORDERED: LEVOFLOXACIN 750 MG TABLET PO SCH (10:00)
[2017-05-18] MEDS: ACETAMINOPHEN 325 MG TABLET PO PRN (10:57)
--- NOTE | 2017-05-18 13:05 | PDOC PROGRESS REPORT ---
Subjective Progress Note for:: 05/18/17 Subjective:: Still wheezing but feels better today. There is no cough, fever, nausea vomiting. Reason For Visit: ACUTE HYPOXEMIC RESPIRATORY FAILURE,POSSIBLE Physical Exam Vital Signs: Temp Pulse Resp BP Pulse Ox 97.5 F 79 18 111/57 L 95 05/18/17 11:47 05/18/17 11:47 05/18/17 11:47 05/18/17 11:47 05/18/17 11:47 Intake & Output 05/17/17 05/18/17 05/19/17 06:59 06:59 06:59 Intake Total 2150 240 Output Total 20 Balance 2130 240 Weight 146 kg General appearance: PRESENT: no acute distress, morbidly obese, well-developed, well-nourished Head exam: PRESENT: atraumatic, normocephalic Eye exam: PRESENT: conjunctiva pink, EOMI, PERRLA. ABSENT: scleral icterus Ear exam: PRESENT: normal external ear exam Mouth exam: PRESENT: moist, tongue midline Neck exam: ABSENT: carotid bruit, JVD, lymphadenopathy, thyromegaly Respiratory exam: PRESENT: decreased breath sounds, rhonchi, wheezes - Bilaterally. ABSENT: accessory muscle use, chest wall tenderness, rales Cardiovascular exam: PRESENT: RRR. ABSENT: diastolic murmur, rubs, systolic murmur Pulses: PRESENT: normal dorsalis pedis pul Vascular exam: PRESENT: normal capillary refill GI/Abdominal exam: PRESENT: normal bowel sounds, soft. ABSENT: distended, guarding, mass, organolmegaly, rebound, tenderness Rectal exam: PRESENT: deferred Extremities exam: PRESENT: full ROM. ABSENT: calf tenderness, clubbing, pedal edema Neurological exam: PRESENT: alert, awake, oriented to person, oriented to place , oriented to time, oriented to situation, CN II-XII grossly intact. ABSENT: motor sensory deficit Psychiatric exam: PRESENT: appropriate affect, normal mood. ABSENT: homicidal ideation, suicidal ideation Skin exam: PRESENT: dry, intact, warm. ABSENT: cyanosis, rash Results Laboratory Results: 05/17/17 11:50 05/17/17 11:50 Impressions: Chest X-Ray 05/17/17 05:12 IMPRESSION: NO SIGNIFICANT RADIOGRAPHIC FINDING IN THE CHEST. Assessment & Plan - Diagnosis (1) Acute respiratory failure Qualifiers: Respiratory failure complication: hypoxia Qualified Code(s): J96.01 - Acute respiratory failure with hypoxia Is this a current diagnosis for this admission?: Yes Plan: Oxygen support, bronchodilators and I will change her steroids to IV as patient is still bronchospastic (2) Pneumonia Qualifiers: Pneumonia type: due to unspecified organism Laterality: unspecified laterality Lung location: unspecified part of lung Qualified Code(s): J18.9 - Pneumonia, unspecified organism Is this a current diagnosis for this admission?: Yes Plan: Likely atypical including Viral. Continue Levaquin and supportive care (3) Morbid (severe) obesity due to excess calories Is this a current diagnosis for this admission?: Yes Plan: Weight loss encouraged - Time Time Spent with patient: 15-24 minutes Smoking Cessation Education: 3 to 10 minutes Medications reviewed and adjusted accordingly: Yes Anticipated discharge: Home - Inpatient Certification Medical Necessity: Need for Nebulizer Therapy and Monitoring of Response
[2017-05-18] MEDS: METHYLPREDNISOLONE INJ 40 MG/1 ML SDV IV SCH (17:04)
[2017-05-19] MEDS: METHYLPREDNISOLONE INJ 40 MG/1 ML SDV IV SCH ×5 (00:07→23:06)
[2017-05-19] MEDS: MAG HYDROX/AL HYDROX/SIMETH SUSP 30 ML UDCUP PO PRN ×2 (00:07→20:36)
[2017-05-19] MEDS: 1/2 NORMAL SALINE 1,000 ML IV PRN ×3 (00:08→21:07)
[2017-05-19] MEDS: ALBUTEROL SULFATE 0.083% NEB 2.5 MG/3 ML AMPUL NEB SCH ×4 (01:49→19:13)
[2017-05-19] MEDS: BENZONATATE 100 MG CAPSULE PO SCH ×3 (02:06→17:12)
[2017-05-19] MEDS: ACETAMINOPHEN 325 MG TABLET PO PRN (07:59)
[2017-05-19] MEDS: LEVOFLOXACIN 750 MG TABLET PO SCH (09:11)
[2017-05-19] MEDS: ENOXAPARIN SODIUM INJ 40 MG/0.4 ML DISP.SYRIN SUBCUT SCH (09:11)
[2017-05-19] MEDS: DOCUSATE SODIUM 100 MG CAPSULE PO SCH (09:12)
--- NOTE | 2017-05-19 15:56 | PDOC PROGRESS REPORT ---
Subjective Progress Note for:: 05/19/17 Subjective:: Wheezing improved. There is no cough, fever, nausea vomiting. Reason For Visit: ACUTE HYPOXEMIC RESPIRATORY FAILURE,POSSIBLE Physical Exam Vital Signs: Temp Pulse Resp BP Pulse Ox 97.8 F 81 20 144/61 H 100 05/19/17 15:34 05/19/17 15:34 05/19/17 15:34 05/19/17 15:34 05/19/17 15:34 Intake & Output 05/18/17 05/19/17 05/20/17 06:59 06:59 06:59 Intake Total 2150 2662 Output Total 20 1200 Balance 2130 1462 Weight 146 kg 146.5 kg General appearance: PRESENT: no acute distress, well-developed, well-nourished Head exam: PRESENT: atraumatic, normocephalic Eye exam: PRESENT: conjunctiva pink, EOMI, PERRLA. ABSENT: scleral icterus Ear exam: PRESENT: normal external ear exam Mouth exam: PRESENT: moist, tongue midline Neck exam: ABSENT: carotid bruit, JVD, lymphadenopathy, thyromegaly Respiratory exam: PRESENT: rhonchi, wheezes - Bilateral but improved. ABSENT: rales Cardiovascular exam: PRESENT: RRR. ABSENT: diastolic murmur, rubs, systolic murmur Pulses: PRESENT: normal dorsalis pedis pul Vascular exam: PRESENT: normal capillary refill GI/Abdominal exam: PRESENT: normal bowel sounds, soft. ABSENT: distended, guarding, mass, organolmegaly, rebound, tenderness Rectal exam: PRESENT: deferred Extremities exam: PRESENT: full ROM. ABSENT: calf tenderness, clubbing, pedal edema Neurological exam: PRESENT: alert, awake, oriented to person, oriented to place , oriented to time, oriented to situation, CN II-XII grossly intact. ABSENT: motor sensory deficit Psychiatric exam: PRESENT: appropriate affect, normal mood. ABSENT: homicidal ideation, suicidal ideation Skin exam: PRESENT: dry, intact, warm. ABSENT: cyanosis, rash Results Laboratory Results: 05/17/17 11:50 05/17/17 11:50 Impressions: Chest X-Ray 05/17/17 05:12 IMPRESSION: NO SIGNIFICANT RADIOGRAPHIC FINDING IN THE CHEST. Assessment & Plan - Diagnosis (1) Acute respiratory failure Qualifiers: Respiratory failure complication: hypoxia Qualified Code(s): J96.01 - Acute respiratory failure with hypoxia Is this a current diagnosis for this admission?: Yes Plan: Oxygen support, bronchodilators and cont IV steroids as patient is still bronchospastic but improved (2) Pneumonia Qualifiers: Pneumonia type: due to unspecified organism Laterality: unspecified laterality Lung location: unspecified part of lung Qualified Code(s): J18.9 - Pneumonia, unspecified organism Is this a current diagnosis for this admission?: Yes Plan: Likely atypical including Viral. Continue Levaquin and supportive care (3) Morbid (severe) obesity due to excess calories Is this a current diagnosis for this admission?: Yes Plan: Weight loss encouraged (4) Hypoxia Is this a current diagnosis for this admission?: Yes Plan: O2 support - Time Time Spent with patient: 15-24 minutes Medications reviewed and adjusted accordingly: Yes Anticipated discharge: Home - Inpatient Certification Medical Necessity: Need for Nebulizer Therapy and Monitoring of Response, Need for IV Antibiotics
[2017-05-20] MEDS ORDERED: GUAIFENESIN/D-METHORPHAN (200-20 MG) SYRUP 10 ML ONE (00:36)
[2017-05-20] MEDS: BENZONATATE 100 MG CAPSULE PO SCH ×3 (01:11→17:41)
[2017-05-20] MEDS: ALBUTEROL SULFATE 0.083% NEB 2.5 MG/3 ML AMPUL NEB SCH ×2 (01:53→07:35)
[2017-05-20] MEDS: METHYLPREDNISOLONE INJ 40 MG/1 ML SDV IV SCH ×4 (06:08→23:28)
[2017-05-20 07:24] LABS: ABSOLUTE LYMPHOCYTES (AUTO) 1.4 10^3/uL (0.5-4.7); ABSOLUTE MONOCYTES (AUTO) 1.5 10^3/uL (0.1-1.4); ABSOLUTE NEUT (AUTO) 10.8 10^3/uL (1.7-8.2); BASOPHILS % (AUTO) 0.2 % (0-2); HEMATOCRIT 37.1 % (36.0-47.0); HEMOGLOBIN 11.3 g/dL (12.0-15.5); LYMPHOCYTES % (AUTO) 10.3 % (13-45); MEAN CORPUSCULAR HEMOGLOBIN 23.6 pg (27.0-33.4); MEAN CORPUSCULAR HGB CONC 30.5 g/dL (32.0-36.0); MEAN CORPUSCULAR VOLUME 77 fl (80-97); MONOCYTES % (AUTO) 10.6 % (3-13); PLATELET COUNT 231 10^3/uL (150-450); RED CELL DISTRIBUTION WIDTH 16.6 % (11.5-14.0); SEGMENTED NEUTROPHILS % (AUTO) 78.9 % (42-78); TOTAL CELLS COUNTED % (AUTO) 100 %
[2017-05-20 07:33] LABS: WHITE BLOOD COUNT 13.7 10^3/uL (4.0-10.5)
[2017-05-20 07:40] LABS: ANION GAP 7 (5-19); BLOOD UREA NITROGEN 20 mg/dL (7-20); CALCIUM 9.3 mg/dL (8.4-10.2); CARBON DIOXIDE 32 mmol/L (22-30); CHLORIDE 99 mmol/L (98-107); GLUCOSE 189 mg/dL (75-110); POTASSIUM 5.1 mmol/L (3.6-5.0); SODIUM 138.4 mmol/L (137-145)
[2017-05-20] MEDS: ENOXAPARIN SODIUM INJ 40 MG/0.4 ML DISP.SYRIN SUBCUT SCH (09:32)
[2017-05-20] MEDS: 1/2 NORMAL SALINE 1,000 ML IV PRN ×2 (09:33→18:12)
[2017-05-20] MEDS: DOCUSATE SODIUM 100 MG CAPSULE PO SCH (09:36)
[2017-05-20] MEDS: LEVOFLOXACIN 750 MG TABLET PO SCH (09:48)
[2017-05-20] MEDS: IPRATROPIUM/ALBUTEROL 0.5-2.5 MG/3 ML AMPUL NEB PRN (10:35)
[2017-05-20] MEDS ORDERED: ALBUTEROL SULFATE 0.083% NEB 2.5 MG/3 ML AMPUL NEB PRN (13:00)
--- NOTE | 2017-05-20 13:04 | PDOC PROGRESS REPORT ---
Subjective Progress Note for:: 05/20/17 Subjective:: Feels better, still rhonchus There is no cough, fever, nausea vomiting. Reason For Visit: ACUTE HYPOXEMIC RESPIRATORY FAILURE,POSSIBLE Physical Exam Vital Signs: Temp Pulse Resp BP Pulse Ox 97.7 F 82 18 121/71 97 05/20/17 08:02 05/20/17 10:35 05/20/17 10:35 05/20/17 08:02 05/20/17 10:35 Intake & Output 05/19/17 05/20/17 05/21/17 06:59 06:59 06:59 Intake Total 2662 901 Output Total 1200 Balance 1462 901 Weight 146.5 kg 146 kg General appearance: PRESENT: well-developed, well-nourished Head exam: PRESENT: atraumatic Eye exam: PRESENT: conjunctiva pink, EOMI, PERRLA. ABSENT: scleral icterus Respiratory exam: PRESENT: crackles, decreased breath sounds, rhonchi, unlabored , wheezes. ABSENT: accessory muscle use Cardiovascular exam: PRESENT: RRR. ABSENT: diastolic murmur, rubs, systolic murmur GI/Abdominal exam: PRESENT: normal bowel sounds, soft. ABSENT: distended, guarding, mass, organolmegaly, rebound, tenderness Rectal exam: PRESENT: deferred Musculoskeletal exam: PRESENT: ambulatory, deformity, dislocation, full ROM, normal inspection, tenderness, other Neurological exam: PRESENT: alert, awake, oriented to person, oriented to place , oriented to time, oriented to situation, CN II-XII grossly intact. ABSENT: motor sensory deficit Results Laboratory Results: 05/20/17 06:24 05/20/17 06:24 05/20/17 05/20/17 06:24 06:24 WBC 13.7 H D RBC 4.80 Hgb 11.3 L Hct 37.1 MCV 77 L MCH 23.6 L MCHC 30.5 L RDW 16.6 H Plt Count 231 Seg Neutrophils % 78.9 H Lymphocytes % 10.3 L Monocytes % 10.6 Eosinophils % 0.0 Basophils % 0.2 Absolute Neutrophils 10.8 H Absolute Lymphocytes 1.4 Absolute Monocytes 1.5 H Absolute Eosinophils 0.0 Absolute Basophils 0.0 Sodium 138.4 Potassium 5.1 H Chloride 99 Carbon Dioxide 32 H Anion Gap 7 BUN 20 Creatinine 0.82 Est GFR ( Amer) > 60 Est GFR (Non-Af Amer) > 60 Glucose 189 H Calcium 9.3 Impressions: Chest X-Ray 05/17/17 05:12 IMPRESSION: NO SIGNIFICANT RADIOGRAPHIC FINDING IN THE CHEST. Assessment & Plan - Diagnosis (1) Acute respiratory failure Qualifiers: Respiratory failure complication: hypoxia Qualified Code(s): J96.01 - Acute respiratory failure with hypoxia Is this a current diagnosis for this admission?: Yes Plan: Oxygen support, bronchodilators and cont IV steroids as patient is still bronchospastic but improved Will continue current management (2) Pneumonia Qualifiers: Pneumonia type: due to unspecified organism Laterality: unspecified laterality Lung location: unspecified part of lung Qualified Code(s): J18.9 - Pneumonia, unspecified organism Is this a current diagnosis for this admission?: Yes Plan: Likely atypical including Viral. Continue Levaquin and supportive care (3) Morbid (severe) obesity due to excess calories Is this a current diagnosis for this admission?: Yes Plan: Weight loss encouraged (4) Hypoxia Is this a current diagnosis for this admission?: Yes Plan: O2 support (5) Leukocytosis, unspecified Is this a current diagnosis for this admission?: Yes Plan: Secondary to steroids - Time Time Spent with patient: 15-24 minutes Medications reviewed and adjusted accordingly: Yes Anticipated discharge: Home Within: within 72 hours - Inpatient Certification Medical Necessity: Need for Nebulizer Therapy and Monitoring of Response
[2017-05-20] MEDS ORDERED: GUAIFENESIN/CODEINE PHOS 100-10 MG/ 5 ML UDC PO PRN (13:05)
[2017-05-20] MEDS ORDERED: IPRATROPIUM/ALBUTEROL 0.5-2.5 MG/3 ML AMPUL NEB ONE (13:25)
[2017-05-20] MEDS: IPRATROPIUM/ALBUTEROL 0.5-2.5 MG/3 ML AMPUL NEB SCH ×2 (13:41→19:44)
[2017-05-20] MEDS: MAG HYDROX/AL HYDROX/SIMETH SUSP 30 ML UDCUP PO PRN (21:24)
[2017-05-21] MEDS: IPRATROPIUM/ALBUTEROL 0.5-2.5 MG/3 ML AMPUL NEB SCH ×4 (02:19→19:46)
[2017-05-21] MEDS: BENZONATATE 100 MG CAPSULE PO SCH ×3 (02:23→18:10)
[2017-05-21] MEDS: METHYLPREDNISOLONE INJ 40 MG/1 ML SDV IV SCH ×3 (05:15→21:40)
[2017-05-21] MEDS: 1/2 NORMAL SALINE 1,000 ML IV PRN (05:19)
[2017-05-21] MEDS: LEVOFLOXACIN 750 MG TABLET PO SCH (09:51)
[2017-05-21] MEDS: ENOXAPARIN SODIUM INJ 40 MG/0.4 ML DISP.SYRIN SUBCUT SCH (09:51)
[2017-05-21] MEDS: DOCUSATE SODIUM 100 MG CAPSULE PO SCH (09:51)
--- NOTE | 2017-05-21 11:25 | PDOC PROGRESS REPORT ---
Subjective Progress Note for:: 05/21/17 Subjective:: Feels better, still wheezing but able to speak in full sentences, ambulate There is no cough, fever, nausea vomiting. Reason For Visit: ACUTE HYPOXEMIC RESPIRATORY FAILURE,POSSIBLE Physical Exam Vital Signs: Temp Pulse Resp BP Pulse Ox 97.6 F 53 L 20 137/94 H 100 05/21/17 08:28 05/21/17 08:28 05/21/17 08:28 05/21/17 08:28 05/21/17 08:28 Intake & Output 05/20/17 05/21/17 05/22/17 06:59 06:59 06:59 Intake Total 901 1040 Balance 901 1040 Weight 146 kg 150.7 kg General appearance: PRESENT: no acute distress, cooperative, obese, well- developed, well-nourished Head exam: PRESENT: atraumatic Eye exam: PRESENT: conjunctiva pink, EOMI, PERRLA. ABSENT: scleral icterus Ear exam: PRESENT: normal external ear exam Mouth exam: PRESENT: moist, tongue midline Respiratory exam: PRESENT: decreased breath sounds, rhonchi - scattered, wheezes - bilat. ABSENT: accessory muscle use, chest wall tenderness, rales, tachypnea Cardiovascular exam: PRESENT: RRR. ABSENT: diastolic murmur, rubs, systolic murmur Pulses: PRESENT: normal dorsalis pedis pul GI/Abdominal exam: PRESENT: normal bowel sounds, soft. ABSENT: distended, guarding, mass, organolmegaly, rebound, tenderness Rectal exam: PRESENT: deferred Musculoskeletal exam: PRESENT: ambulatory, full ROM Psychiatric exam: PRESENT: appropriate affect, normal mood. ABSENT: homicidal ideation, suicidal ideation Results Laboratory Results: 05/20/17 06:24 05/20/17 06:24 Impressions: Chest X-Ray 05/17/17 05:12 IMPRESSION: NO SIGNIFICANT RADIOGRAPHIC FINDING IN THE CHEST. Assessment & Plan - Diagnosis (1) Acute respiratory failure Qualifiers: Respiratory failure complication: hypoxia Qualified Code(s): J96.01 - Acute respiratory failure with hypoxia Is this a current diagnosis for this admission?: Yes Plan: Oxygen support, bronchodilators and cont IV steroids as patient is still bronchospastic but improved Due to the persistence of bronchospasm I will go ahead and obtain a CTA to rule out PE as well as a two-dimensional echocardiogram to rule out heart failure however at I believe with all of these are highly unlikely. (2) Pneumonia Qualifiers: Pneumonia type: due to unspecified organism Laterality: unspecified laterality Lung location: unspecified part of lung Qualified Code(s): J18.9 - Pneumonia, unspecified organism Is this a current diagnosis for this admission?: Yes Plan: Likely atypical including Viral. Continue Levaquin and supportive care I will go ahead and start tapering steroids as rhonchi does sound better today (3) Morbid (severe) obesity due to excess calories Is this a current diagnosis for this admission?: Yes Plan: Weight loss encouraged (4) Hypoxia Is this a current diagnosis for this admission?: Yes Plan: O2 support Encouraged her to ambulate as tolerated (5) Leukocytosis, unspecified Is this a current diagnosis for this admission?: Yes Plan: Secondary to steroids We will obtain CBC in a.m. - Time Time Spent with patient: 15-24 minutes Medications reviewed and adjusted accordingly: Yes Anticipated discharge: Home Within: within 72 hours - Inpatient Certification Medical Necessity: Need For Continuous Telemetry Monitoring, Risk of Complication if Not Cared For in Hospital
--- NOTE | 2017-05-21 22:54 | RADIOLOGY REPORT (SQ) ---
EXAM DESCRIPTION: CTA CHEST COMPLETED DATE/TIME: 05/21/2017 10:40 pm REASON FOR STUDY: Persistent bronchospasm COMPARISON: None. TECHNIQUE: CT scan of the chest performed using helical scanning technique with dynamic intravenous contrast injection. Images reviewed with lung, soft tissue and bone windows. Reconstructed coronal and sagittal MPR images reviewed. Additional 3 dimensional post-processing performed to develop Maximal Intensity Projection images (CO P). All images stored on PACS. All CT scanners at this facility use dose modulation, iterative reconstruction, and/or weight based d osing when appropriate to reduce radiation dose to as low as reasonably achievable (ALARA). [facility]: Dose Right [facility]: CareDose [facility]: Dose Right [facility]: Teradose 4D [facility]: [employer] CONTRAST TYPE AND DOSE: contrast/concentration: Isovue 370.00 mg/ml; Total Contrast Delivered: 82.0 ml; Total Saline Delivered: 52.0 ml Contrast bolus optimized for the pulmonary arteries. Not diagnostic for the aorta. RENAL FUNCTION: GFR > 60. RADIATION DOSE: CT Rad equipment meets quality standard of care and radiation dose reduction techniq ues were employed. CTDIvol: 35.2 - 51.0 mGy. DLP: 1771 mGy-cm. . LIMITATIONS: None. FINDINGS: LUNGS AND PLEURA: No masses, infiltrates, pneumothorax. No pleural effusions, calcificati ons. AORTA AND GREAT VESSELS: No aneurysm. Contrast bolus not optimized for the aorta. HEART: No pericardial effusion. No significant coronary artery calcifications. PULMONARY ARTERIES: No emboli visualized in the main pulmonary arteries or the segmental branches. HILAR AND MEDIASTINAL STRUCTURES: No identified masses or abnormal nodes. HARDWARE: None in the chest. UPPER ABDOMEN: No significant findings. Limited exam. THYROID AND OTHER SOFT TISSUES: No masses. No adenopathy. BONES: No acute or significant finding. 3D MIPS: Confirm above findings. OTHER: No other significant finding. IMPRESSION: NORMAL CTA OF THE CHEST. NO PULMONARY EMBOLI. COMMENT: Quality ID # [id number]: Final reports with documentation of one or more dose reduction techniques (e.g., Automated exposure control, adjustment of the mA and/or kV according to patient size, use of iterative reconstruction technique) TECHNICAL DOCUMENTATION: JOB ID: [id number] [place]-72 2010 [employer]- All Rights Reserved
[2017-05-21] MEDS: ACETAMINOPHEN 325 MG TABLET PO PRN (23:43)
[2017-05-22] MEDS: BENZONATATE 100 MG CAPSULE PO SCH ×3 (02:22→18:48)
[2017-05-22] MEDS: IPRATROPIUM/ALBUTEROL 0.5-2.5 MG/3 ML AMPUL NEB SCH ×4 (02:25→20:41)
[2017-05-22] MEDS: METHYLPREDNISOLONE INJ 40 MG/1 ML SDV IV SCH ×2 (05:59→18:48)
[2017-05-22 07:25] LABS: ANION GAP 7 (5-19); BLOOD UREA NITROGEN 29 mg/dL (7-20); CALCIUM 9.3 mg/dL (8.4-10.2); CARBON DIOXIDE 36 mmol/L (22-30); CHLORIDE 96 mmol/L (98-107); GLUCOSE 222 mg/dL (75-110); POTASSIUM 4.7 mmol/L (3.6-5.0); SODIUM 138.8 mmol/L (137-145)
[2017-05-22 07:31] LABS: HEMATOCRIT 40.1 % (36.0-47.0); HEMOGLOBIN 12.3 g/dL (12.0-15.5); MEAN CORPUSCULAR HEMOGLOBIN 23.6 pg (27.0-33.4); MEAN CORPUSCULAR HGB CONC 30.8 g/dL (32.0-36.0); MEAN CORPUSCULAR VOLUME 77 fl (80-97); PLATELET COUNT 211 10^3/uL (150-450); RED BLOOD COUNT 5.23 10^6/uL (3.72-5.28); RED CELL DISTRIBUTION WIDTH 16.8 % (11.5-14.0); WHITE BLOOD COUNT 11.7 10^3/uL (4.0-10.5)
[2017-05-22 08:25] LABS: ABSOLUTE LYMPHOCYTES# (MANUAL) 2.3 10^3/uL (0.5-4.7); ABSOLUTE MONOCYTES # (MANUAL) 0.9 10^3/uL (0.1-1.4); ABSOLUTE NEUTROPHILS# (MANUAL) 8.4 10^3/uL (1.7-8.2); BAND NEUTROPHILS % (MANUAL) 7 % (3-5); BASOPHILS % (MANUAL) 0 % (0-2); EOSINOPHILS % (MANUAL) 0 % (0-6); LYMPHOCYTES % (MANUAL) 19 % (13-45); MONOCYTES % (MANUAL) 8 % (3-13); SEGMENTED NEUTROPHILS % (MAN) 65 % (42-78); TOTAL CELLS COUNTED 100
[2017-05-22 08:26] LABS: ANISOCYTOSIS 1+; PLATELET COMMENT ADEQUATE; TOXIC GRANULATION 1+; TOXIC VACUOLATION PRESENT
[2017-05-22] MEDS: DOCUSATE SODIUM 100 MG CAPSULE PO SCH (10:32)
[2017-05-22] MEDS: LEVOFLOXACIN 750 MG TABLET PO SCH (10:32)
[2017-05-22] MEDS: ENOXAPARIN SODIUM INJ 40 MG/0.4 ML DISP.SYRIN SUBCUT SCH (10:32)
--- NOTE | 2017-05-22 10:43 | XCELERA REPORT ---
[address] [address] Transthoracic Echocardiogram Report Name: AMALIA ABDI Age: 46 yrs Gender: Female : 1970 Patient Status: Inpatient Patient Location: [address] [place] [address] Study Date: 05/22/2017 09:32 AM Height: 64 in Weight: 332 lb BSA: 2.4 m2 Procedure: A complete two-dimensional transthoracic echocardiogram was performed (2D, M-mode, spectral and color flow Doppler). The study was technically adequate with some images being suboptimal in quality. Reason For Study: Hypoxia, Bronchospasm Ordering Physician: MARYAN DANIELSON Performed By: Leydi Jacobo Interpretation Summary The left ventricular ejection fraction is normal. The right ventricle is moderately dilated. The right ventricle appears to be hypertrophied The right ventricular systolic function is borderline reduced. Best estimated RVSP is approximately 60-70 mm/Hg. There is servere pulmonary hypertension by echo There is borderline concentric left ventricular hypertrophy. Doppler measurements suggest impaired left ventricular relaxation, which is associated with grade I/IV or mild diastolic dysfunction The left ventricle is grossly normal size. Wall motion cannot be accurately commented on, but no definite regional wall motion abnormalities noted. The right atrium is mildly dilated. The left atrium is mildly dilated. There is a trace amount of mitral regurgitation There is no mitral valve stenosis. There is no aortic valve stenosis No aortic regurgitation is present. There is a mild amount of tricuspid regurgitation The pulmonic valve is not well visualized. The inferior vena cava appeared normal and decreased < 50% with respiration (RAP 10-15 mmHg) There is no pericardial effusion. MMode/2D Measurements & Calculations RVDd: 3.3 cm LVIDd: 4.4 cm FS: 36.4 % Ao root diam: 2.3 cm IVSd: 0.88 cm LVIDs: 2.8 cm EDV(Teich): 88.1 ml LVPWd: 0.93 cm ESV(Teich): 29.6 ml Ao root area: 4.1 cm2 EF(Teich): 66.4 % LA dimension: 3.5 cm Doppler Measurements & Calculations MV E max dmitri: MV P1/2t max dmitri: Ao V2 max: LV V1 max P.8 cm/sec 132.3 cm/sec 237.5 cm/sec 10.7 mmHg MV A max dmitri: MV P1/2t: 61.8 msec Ao max PG: LV V1 max: 145.1 cm/sec 22.6 mmHg 163.4 cm/sec MV E/A: 0.91 MVA(P1/2t): 3.6 cm2 MV dec slope: 627.3 cm/sec2 MV dec time: 0.20 sec PA V2 max: PI end-d dmitri: TR max dmitri: 117.5 cm/sec 179.2 cm/sec 370.6 cm/sec PA max PG: TR max P.5 mmHg 54.9 mmHg Left Ventricle The left ventricle is grossly normal size. There is borderline concentric left ventricular hypertrophy. The left ventricular ejection fraction is normal. Doppler measurements suggest impaired left ventricular relaxation, which is associated with grade I/IV or mild diastolic dysfunction. Wall motion cannot be accurately commented on, but no definite regional wall motion abnormalities noted. Right Ventricle The right ventricle is moderately dilated. The right ventricle appears to be hypertrophied. The right ventricular systolic function is borderline reduced. Atria The right atrium is mildly dilated. The left atrium is mildly dilated. Interarterial septum not well visualized and not well dopplered. Cannot comment on ASD/PFO presence. Mitral Valve The mitral valve is grossly normal. There is no mitral valve stenosis. There is a trace amount of mitral regurgitation. Aortic Valve The aortic valve is grossly normal. There is no aortic valve stenosis. No aortic regurgitation is present. Tricuspid Valve The tricuspid valve is not well visualized, but is grossly normal. There is no tricuspid stenosis. There is a mild amount of tricuspid regurgitation. Best estimated RVSP is approximately 60-70 mm/Hg. There is servere pulmonary hypertension by echo. Pulmonic Valve The pulmonic valve is not well visualized. Great Vessels The aortic root is not well visualized. The inferior vena cava appeared normal and decreased < 50% with respiration (RAP 10-15 mmHg). Effusions There is no pericardial effusion. : MARYAN DANIELSON > Mj Eller
[2017-05-22] MEDS ORDERED: FUROSEMIDE INJ/PF 20 MG/2 ML SDV IV SCH (12:30)
--- NOTE | 2017-05-22 12:42 | PDOC PROGRESS REPORT ---
Subjective Progress Note for:: 05/22/17 Subjective:: Patient refers that her breathing is some better. She admits that she suffers from sleep apnea since she was a child but does not use CPAP because of claustrophobia. She recognizes that her weight is a problem and she had been trying to cut down on salt and calories as well as have been trying to walk. Review of systems All organ systems evaluated and negative except as in subjective All significant laboratories and diagnostics have been reviewed Reason For Visit: ACUTE HYPOXEMIC RESPIRATORY FAILURE,POSSIBLE Physical Exam Vital Signs: Temp Pulse Resp BP Pulse Ox 98.0 F 67 18 153/84 H 100 05/22/17 04:06 05/22/17 04:06 05/22/17 04:06 05/22/17 04:06 05/22/17 04:06 Intake & Output 05/21/17 05/22/17 05/23/17 06:59 06:59 06:59 Intake Total 1040 Balance 1040 Weight 150.7 kg 150.3 kg General appearance: PRESENT: cooperative, morbidly obese Head exam: PRESENT: atraumatic, normocephalic Eye exam: PRESENT: conjunctiva pink, EOMI, PERRLA Ear exam: PRESENT: normal external ear exam Mouth exam: PRESENT: moist, neck supple Neck exam: PRESENT: full ROM. ABSENT: JVD, lymphadenopathy, tenderness Respiratory exam: PRESENT: decreased breath sounds, wheezes Cardiovascular exam: PRESENT: RRR. ABSENT: diastolic murmur, systolic murmur Vascular exam: PRESENT: normal capillary refill GI/Abdominal exam: PRESENT: normal bowel sounds, soft. ABSENT: tenderness Extremities exam: PRESENT: clubbing, full ROM. ABSENT: joint swelling, pedal edema Musculoskeletal exam: PRESENT: ambulatory Neurological exam: PRESENT: alert, awake, oriented to person, oriented to place , oriented to time, oriented to situation, CN II-XII grossly intact Psychiatric exam: PRESENT: appropriate affect, normal mood Skin exam: PRESENT: intact, normal color Results Laboratory Results: 05/22/17 06:43 05/22/17 05/22/17 06:43 06:43 Seg Neutrophils % Not Reportable Lymphocytes % Not Reportable Monocytes % Not Reportable Eosinophils % Not Reportable Basophils % Not Reportable Absolute Neutrophils Not Reportable Absolute Lymphocytes Not Reportable Absolute Monocytes Not Reportable Absolute Eosinophils Not Reportable Absolute Basophils Not Reportable Sodium 138.8 Potassium 4.7 Chloride 96 L Carbon Dioxide 36 H Anion Gap 7 BUN 29 H Creatinine 0.93 Est GFR ( Amer) > 60 Est GFR (Non-Af Amer) > 60 Glucose 222 H Calcium 9.3 Impressions: Chest X-Ray 05/17/17 05:12 IMPRESSION: NO SIGNIFICANT RADIOGRAPHIC FINDING IN THE CHEST. Chest/Abdomen CTA 05/21/17 00:00 IMPRESSION: NORMAL CTA OF THE CHEST. NO PULMONARY EMBOLI. Assessment & Plan - Diagnosis (1) Pulmonary hypertension Is this a current diagnosis for this admission?: Yes Plan: Likely due to untreated sleep apnea. Will start Lasix IV and will trend renal function (2) Acute respiratory failure Qualifiers: Respiratory failure complication: hypoxia Qualified Code(s): J96.01 - Acute respiratory failure with hypoxia Is this a current diagnosis for this admission?: Yes Plan: Probably long-standing. Will try to wean off oxygen as tolerated (3) Morbid (severe) obesity due to excess calories Is this a current diagnosis for this admission?: Yes Plan: Patient relates that she has been trying to the make some lifestyle changes such as cutting down of carbonated drinks, calories and walking (4) Pneumonia Qualifiers: Pneumonia type: due to unspecified organism Laterality: unspecified laterality Lung location: unspecified part of lung Qualified Code(s): J18.9 - Pneumonia, unspecified organism Is this a current diagnosis for this admission?: No Plan: Ruled out (5) Sleep apnea Qualifiers: Sleep apnea type: obstructive Qualified Code(s): G47.33 - Obstructive sleep apnea (adult) (pediatric) Is this a current diagnosis for this admission?: Yes Plan: Patient relates that she is claustrophobic. Patient educated about the use of CPAP - Time Time Spent with patient: 15-24 minutes Medications reviewed and adjusted accordingly: Yes Anticipated discharge: Home Within: within 48 hours - Inpatient Certification Based on my medical assessment, after consideration of the patient's comorbidities, presenting symptoms, or acuity I expect that the services needed warrant INPATIENT care.: Yes I certify that my determination is in accordance with my understanding of Medicare's requirements for reasonable and necessary INPATIENT services [42 CFR 412.3e].: Yes Medical Necessity: Need Close Monitoring Due to Risk of Patient Decompensation, Need for Nebulizer Therapy and Monitoring of Response - Oxygen supplementation
[2017-05-22] MEDS ORDERED: FUROSEMIDE INJ/PF 40 MG/4 ML SDV IV ONE (13:00)
[2017-05-22] MEDS: FUROSEMIDE INJ/PF 40 MG/4 ML SDV IV SCH (22:14)
[2017-05-23] MEDS: IPRATROPIUM/ALBUTEROL 0.5-2.5 MG/3 ML AMPUL NEB SCH ×4 (02:27→19:49)
[2017-05-23] MEDS: BENZONATATE 100 MG CAPSULE PO SCH ×3 (05:43→19:24)
[2017-05-23] MEDS: METHYLPREDNISOLONE INJ 40 MG/1 ML SDV IV SCH (05:47)
[2017-05-23 09:51] LABS: BLOOD UREA NITROGEN 33 mg/dL (7-20); CALCIUM 9.8 mg/dL (8.4-10.2); CHLORIDE 89 mmol/L (98-107); GLUCOSE 154 mg/dL (75-110); POTASSIUM 4.3 mmol/L (3.6-5.0); SODIUM 136.3 mmol/L (137-145)
[2017-05-23 09:57] LABS: ANION GAP 9 (5-19); CARBON DIOXIDE 38 mmol/L (22-30)
[2017-05-23] MEDS: ENOXAPARIN SODIUM INJ 40 MG/0.4 ML DISP.SYRIN SUBCUT SCH (11:34)
[2017-05-23] MEDS: FUROSEMIDE INJ/PF 40 MG/4 ML SDV IV SCH ×2 (11:35→21:54)
[2017-05-23] MEDS: DOCUSATE SODIUM 100 MG CAPSULE PO SCH (11:36)
[2017-05-23] MEDS ORDERED: MAGNESIUM OXIDE 400 MG TABLET PO ONE (13:00)
--- NOTE | 2017-05-23 18:45 | PDOC PROGRESS REPORT ---
Subjective Progress Note for:: 05/23/17 Subjective:: Patient refers that her breathing is better. Had extensive conversation about the need to follow-up and be evaluated through a sleep study. Nurse reported that patient had been refusing Lasix Review of systems All organ systems evaluated and negative except as in subjective All significant laboratories and diagnostics have been reviewed Reason For Visit: ACUTE HYPOXEMIC RESPIRATORY FAILURE,POSSIBLE Physical Exam Vital Signs: Temp Pulse Resp BP Pulse Ox 97.7 F 87 18 135/77 H 99 05/23/17 04:38 05/23/17 04:38 05/23/17 04:38 05/23/17 04:38 05/23/17 04:38 Intake & Output 05/22/17 05/23/17 05/24/17 06:59 06:59 06:59 Intake Total 735 Balance 735 Weight 150.3 kg 150.6 kg General appearance: PRESENT: no acute distress, cooperative, morbidly obese Head exam: PRESENT: atraumatic, normocephalic Eye exam: PRESENT: conjunctiva pink, EOMI, PERRLA Ear exam: PRESENT: normal external ear exam Mouth exam: PRESENT: moist Neck exam: PRESENT: full ROM, JVD, lymphadenopathy. ABSENT: tenderness Respiratory exam: PRESENT: clear to auscultation marcelino, decreased breath sounds Cardiovascular exam: PRESENT: RRR. ABSENT: diastolic murmur, systolic murmur Vascular exam: PRESENT: normal capillary refill GI/Abdominal exam: PRESENT: normal bowel sounds, soft. ABSENT: tenderness Extremities exam: PRESENT: full ROM, +2 edema Musculoskeletal exam: PRESENT: ambulatory Neurological exam: PRESENT: alert, awake, oriented to person, oriented to place , oriented to time, oriented to situation, CN II-XII grossly intact Psychiatric exam: PRESENT: appropriate affect, normal mood Results Laboratory Results: 05/22/17 06:43 05/22/17 06:43 05/22/17 05/22/17 06:43 06:43 WBC 11.7 H RBC 5.23 Hgb 12.3 Hct 40.1 MCV 77 L MCH 23.6 L MCHC 30.8 L RDW 16.8 H Plt Count 211 Seg Neutrophils % Not Reportable Lymphocytes % Not Reportable Monocytes % Not Reportable Eosinophils % Not Reportable Basophils % Not Reportable Absolute Neutrophils Not Reportable Absolute Lymphocytes Not Reportable Absolute Monocytes Not Reportable Absolute Eosinophils Not Reportable Absolute Basophils Not Reportable Sodium 138.8 Potassium 4.7 Chloride 96 L Carbon Dioxide 36 H Anion Gap 7 BUN 29 H Creatinine 0.93 Est GFR ( Amer) > 60 Est GFR (Non-Af Amer) > 60 Glucose 222 H Calcium 9.3 05/17/17 11:50 Blood Blood Culture - Final NO GROWTH IN 5 DAYS 05/17/17 10:35 Blood Blood Culture - Final NO GROWTH IN 5 DAYS Impressions: Chest X-Ray 05/17/17 05:12 IMPRESSION: NO SIGNIFICANT RADIOGRAPHIC FINDING IN THE CHEST. Chest/Abdomen CTA 05/21/17 00:00 IMPRESSION: NORMAL CTA OF THE CHEST. NO PULMONARY EMBOLI. Assessment & Plan - Diagnosis (1) Pulmonary hypertension Is this a current diagnosis for this admission?: Yes Plan: Likely due to untreated sleep apnea. Had extensive conversation with patient about culprit there is a sleep apnea. She does not have health insurance however encouraged her to make all the necessary arrangements and she will needing a CPAP. She was also made aware will have to be discharged on diuretic (2) Acute respiratory failure Qualifiers: Respiratory failure complication: hypoxia Qualified Code(s): J96.01 - Acute respiratory failure with hypoxia Is this a current diagnosis for this admission?: Yes Plan: Probably long-standing. Will try to wean off oxygen as tolerated (3) Morbid (severe) obesity due to excess calories Is this a current diagnosis for this admission?: Yes Plan: Patient relates that she has been trying to the make some lifestyle changes such as cutting down of carbonated drinks, calories and walking (4) Pneumonia Qualifiers: Pneumonia type: due to unspecified organism Laterality: unspecified laterality Lung location: unspecified part of lung Qualified Code(s): J18.9 - Pneumonia, unspecified organism Is this a current diagnosis for this admission?: No Plan: Ruled out (5) Sleep apnea Qualifiers: Sleep apnea type: obstructive Qualified Code(s): G47.33 - Obstructive sleep apnea (adult) (pediatric) Is this a current diagnosis for this admission?: Yes Plan: Patient relates that she is claustrophobic. Patient educated about the use of CPAP - Time Time Spent with patient: 15-24 minutes Medications reviewed and adjusted accordingly: Yes Anticipated discharge: Home Within: within 24 hours - Inpatient Certification Based on my medical assessment, after consideration of the patient's comorbidities, presenting symptoms, or acuity I expect that the services needed warrant INPATIENT care.: Yes I certify that my determination is in accordance with my understanding of Medicare's requirements for reasonable and necessary INPATIENT services [42 CFR 412.3e].: Yes Medical Necessity: Need Close Monitoring Due to Risk of Patient Decompensation
[2017-05-23] MEDS: MAGNESIUM OXIDE 400 MG TABLET PO SCH (19:23)
[2017-05-23] MEDS: OXYCODONE-ACETAMINOPHEN 5-325 MG TABLET PO PRN (19:24)
[2017-05-23] MEDS: ACETAMINOPHEN 325 MG TABLET PO PRN (23:46)
[2017-05-24] MEDS: BENZONATATE 100 MG CAPSULE PO SCH ×2 (01:37→09:42)
[2017-05-24] MEDS: IPRATROPIUM/ALBUTEROL 0.5-2.5 MG/3 ML AMPUL NEB SCH ×3 (01:54→13:23)
[2017-05-24 07:29] LABS: ABSOLUTE BASOPHILS # (AUTO) 0.1 10^3/uL (0.0-0.2); ABSOLUTE EOSINOPHILS # (AUTO) 0.2 10^3/uL (0.0-0.6); ABSOLUTE LYMPHOCYTES (AUTO) 4.5 10^3/uL (0.5-4.7); ABSOLUTE MONOCYTES (AUTO) 1.8 10^3/uL (0.1-1.4); ABSOLUTE NEUT (AUTO) 6.4 10^3/uL (1.7-8.2); BASOPHILS % (AUTO) 0.5 % (0-2); EOSINOPHILS % (AUTO) 1.2 % (0-6); HEMATOCRIT 41.9 % (36.0-47.0); HEMOGLOBIN 13.1 g/dL (12.0-15.5); LYMPHOCYTES % (AUTO) 34.7 % (13-45); MEAN CORPUSCULAR HEMOGLOBIN 23.5 pg (27.0-33.4); MEAN CORPUSCULAR HGB CONC 31.1 g/dL (32.0-36.0); MEAN CORPUSCULAR VOLUME 76 fl (80-97); MONOCYTES % (AUTO) 14.2 % (3-13); PLATELET COUNT 266 10^3/uL (150-450); RED BLOOD COUNT 5.56 10^6/uL (3.72-5.28); RED CELL DISTRIBUTION WIDTH 16.6 % (11.5-14.0); SEGMENTED NEUTROPHILS % (AUTO) 49.4 % (42-78); TOTAL CELLS COUNTED % (AUTO) 100 %
[2017-05-24 07:48] LABS: BLOOD UREA NITROGEN 47 mg/dL (7-20); CALCIUM 9.1 mg/dL (8.4-10.2); CHLORIDE 85 mmol/L (98-107); GLUCOSE 106 mg/dL (75-110); MAGNESIUM 2.3 mg/dL (1.6-2.3); POTASSIUM 3.7 mmol/L (3.6-5.0); SODIUM 137.5 mmol/L (137-145)
[2017-05-24 08:04] LABS: ANION GAP 7 (5-19)
[2017-05-24 08:05] LABS: CARBON DIOXIDE 46 mmol/L (22-30)
[2017-05-24] MEDS: ENOXAPARIN SODIUM INJ 40 MG/0.4 ML DISP.SYRIN SUBCUT SCH (09:42)
[2017-05-24] MEDS: FUROSEMIDE INJ/PF 40 MG/4 ML SDV IV SCH (09:42)
[2017-05-24] MEDS: DOCUSATE SODIUM 100 MG CAPSULE PO SCH (09:42)
[2017-05-24] MEDS: MAGNESIUM OXIDE 400 MG TABLET PO SCH (09:42)
[2017-05-24 13:19] VITALS: BP 149/78
--- NOTE | 2017-05-24 19:10 | PDOC DISCHARGE SUMMARY ---
General - Admit/Disc Date/PCP Admission Date/Primary Care Provider: 05/17/17 08:33 Discharge Date: 05/24/17 - Discharge Diagnosis (1) Acute respiratory failure Is this a current diagnosis for this admission?: Yes (2) Pulmonary hypertension Is this a current diagnosis for this admission?: Yes (3) Morbid (severe) obesity due to excess calories Is this a current diagnosis for this admission?: Yes (4) Pneumonia Is this a current diagnosis for this admission?: No (5) Sleep apnea Is this a current diagnosis for this admission?: Yes (6) Diastolic dysfunction with chronic heart failure Is this a current diagnosis for this admission?: Yes - Additional Information Resuscitation Status: Full Code Discharge Diet: Regular Discharge Activity: Activity As Tolerated Prescriptions: Magnesium Oxide [Mag-Ox 400 mg Tablet] 400 mg PO BID #60 tablet Torsemide [Demadex 20 mg Tablet] 20 mg PO DAILY #60 tablet Home Medications: Magnesium Oxide [Mag-Ox 400 mg Tablet] 400 mg PO BID #60 tablet 05/24/17 Torsemide [Demadex 20 mg Tablet] 20 mg PO DAILY #60 tablet 05/24/17 History of Present Illness History of Present Illness: AMALIA ABDI is a 46 year old female who presented to the ED due to dry cough , congestion, wheezing for over a week. Patient complained as to having chills but no fever. She stated she was short of breath. Also complained to having some pain with breathing, especially after coughing spells. Patient was desaturating when she presented to emergency room. Patient was admitted under the hospitalist service for further management Hospital Course Hospital Course: Patient was admitted under the hospitalist service. She was supplemented with oxygen as was wean off as tolerated. She does carry a history of sleep apnea since she was a child however she has not been using CPAP because would get claustrophobic. Since overall patient condition was slowly to improve and patient medical condition deemed to be related to a history of sleep apnea she was placed on IV Lasix. With this intervention she began to improve. Echocardiogram obtained demonstrated severe pulmonary hypertension and a grade 1 diastolic dysfunction. Patient was made aware of the need to take diuretic on a regular basis however she complained of getting cramps. Patient was placed on magnesium oxide for this purpose. Patient has been strongly encouraged as to lifestyle modification which included weight loss as well as to exercise. Patient lacks health insurance and she was encouraged as to work on trying to get Medicaid since she will need to be treated aggressively for sleep apnea and included a CPAP. Patient also was treated for atypical pneumonia however is my impression that most of her symptoms related to elevated pulmonary pressures. Since patient had improved and had achieved maximum benefit of hospitalization stay prompted to discharge under stable condition Physical Exam Vital Signs: Temp Pulse Resp BP Pulse Ox 98.7 F 96 16 149/78 H 96 05/24/17 13:23 05/24/17 13:23 05/24/17 13:23 05/24/17 13:23 05/24/17 13:23 Intake & Output 05/23/17 05/24/17 05/25/17 06:59 06:59 06:59 Intake Total 735 714 Balance 735 714 Weight 150.6 kg 142.7 kg General appearance: PRESENT: cooperative, morbidly obese Head exam: PRESENT: atraumatic, normocephalic Eye exam: PRESENT: EOMI, nystagmus, PERRLA Ear exam: PRESENT: normal external ear exam Mouth exam: PRESENT: moist Neck exam: PRESENT: full ROM. ABSENT: JVD, lymphadenopathy, thyromegaly Respiratory exam: PRESENT: clear to auscultation marcelino Cardiovascular exam: PRESENT: RRR. ABSENT: diastolic murmur, systolic murmur Vascular exam: PRESENT: normal capillary refill GI/Abdominal exam: PRESENT: normal bowel sounds, soft. ABSENT: tenderness Extremities exam: PRESENT: full ROM, +2 edema Musculoskeletal exam: PRESENT: ambulatory Neurological exam: PRESENT: alert, awake, oriented to person, oriented to place , oriented to time, oriented to situation, CN II-XII grossly intact Psychiatric exam: PRESENT: appropriate affect, normal mood Skin exam: PRESENT: intact, normal color Results Laboratory Results: 05/24/17 07:12 05/24/17 07:12 05/24/17 05/24/17 07:12 07:12 WBC 13.0 H RBC 5.56 H Hgb 13.1 Hct 41.9 MCV 76 L MCH 23.5 L MCHC 31.1 L RDW 16.6 H Plt Count 266 Seg Neutrophils % 49.4 Lymphocytes % 34.7 Monocytes % 14.2 H Eosinophils % 1.2 Basophils % 0.5 Absolute Neutrophils 6.4 Absolute Lymphocytes 4.5 Absolute Monocytes 1.8 H Absolute Eosinophils 0.2 Absolute Basophils 0.1 Sodium 137.5 Potassium 3.7 Chloride 85 L Carbon Dioxide 46 H* Anion Gap 7 BUN 47 H Creatinine 1.09 Est GFR ( Amer) > 60 Est GFR (Non-Af Amer) 54 L Glucose 106 Calcium 9.1 Magnesium 2.3 Impressions: Chest X-Ray 05/17/17 05:12 IMPRESSION: NO SIGNIFICANT RADIOGRAPHIC FINDING IN THE CHEST. Chest/Abdomen CTA 05/21/17 00:00 IMPRESSION: NORMAL CTA OF THE CHEST. NO PULMONARY EMBOLI. Plan Discharge Plan: Discharge home Time Spent: Less than 30 Minutes
== END 2017-05-24 13:50 | disposition home or self-care (01) | DRG 314 ==
LOC: ER 00:22 → EH 08:33 → 2N 20:23
PROVIDERS: ADMIT Emergency Medicine; ATTEND Emergency Medicine
PROC: 3E0F73Z Introduction of Anti-inflammatory into Respiratory Tract, Via Natural or Artificial Opening (ICD-10-PCS; principal; 2017-05-17)
DX: I27.20 Pulmonary hypertension, unspecified (principal); J18.9 Pneumonia, unspecified organism; J96.01 Acute respiratory failure with hypoxia; Z68.43 Body mass index [BMI] 50.0-59.9, adult; I50.32 Chronic diastolic (congestive) heart failure; I11.0 Hypertensive heart disease with heart failure; J45.909 Unspecified asthma, uncomplicated; E66.9 Obesity, unspecified; M17.12 Unilateral primary osteoarthritis, left knee; T38.0X5A Adverse effect of glucocorticoids and synthetic analogues, initial encounter; D72.829 Elevated white blood cell count, unspecified; F40.240 Claustrophobia; G47.33 Obstructive sleep apnea (adult) (pediatric); Z59.7 Insufficient social insurance and welfare support; Z83.3 Family history of diabetes mellitus; Z82.49 Family history of ischemic heart disease and other diseases of the circulatory system
CPT/HCPCS: 36415; 71046; 71275; 80048; 83735; 85025; 87040; 87804; 93005; 93010; 93306; 94640; 99285; J0456; J1650; J1885; J1940; J2920; J3490; J7512; J7620

== ENCOUNTER → 2017-10-28 | Outpatient (CLI) | payer BC ==
[2017-10-28 15:08] LABS: ABSOLUTE EOSINOPHILS # (AUTO) 0.2 10^3/uL (0.0-0.6); ABSOLUTE LYMPHOCYTES (AUTO) 1.6 10^3/uL (0.5-4.7); ABSOLUTE NEUT (AUTO) 5.7 10^3/uL (1.7-8.2); BASOPHILS % (AUTO) 0.3 % (0-2); EOSINOPHILS % (AUTO) 2.3 % (0-6); HEMATOCRIT 37.9 % (36.0-47.0); HEMOGLOBIN 11.5 g/dL (12.0-15.5); LYMPHOCYTES % (AUTO) 18.5 % (13-45); MEAN CORPUSCULAR HEMOGLOBIN 23.1 pg (27.0-33.4); MEAN CORPUSCULAR HGB CONC 30.3 g/dL (32.0-36.0); MEAN CORPUSCULAR VOLUME 76 fl (80-97); MONOCYTES % (AUTO) 11.8 % (3-13); PLATELET COUNT 263 10^3/uL (150-450); RED BLOOD COUNT 4.98 10^6/uL (3.72-5.28); RED CELL DISTRIBUTION WIDTH 17.5 % (11.5-14.0); SEGMENTED NEUTROPHILS % (AUTO) 67.1 % (42-78); TOTAL CELLS COUNTED % (AUTO) 100 %; WHITE BLOOD COUNT 8.4 10^3/uL (4.0-10.5)
[2017-10-28 15:32] LABS: ALANINE AMINOTRANSFERASE 16 U/L (9-52); ALBUMIN 3.9 g/dL (3.5-5.0); ALKALINE PHOSPHATASE 93 U/L (38-126); ASPARTATE AMINO TRANSFERASE 17 U/L (14-36); BILIRUBIN,DIRECT 0.3 mg/dL (0.0-0.4); BILIRUBIN,TOTAL 0.3 mg/dL (0.2-1.3); BLOOD UREA NITROGEN 24 mg/dL (7-20); CALCIUM 8.6 mg/dL (8.4-10.2); CHLORIDE 98 mmol/L (98-107); GLUCOSE 99 mg/dL (75-110); SODIUM 144.2 mmol/L (137-145); TOTAL PROTEIN 8.1 g/dL (6.3-8.2)
[2017-10-28 15:39] LABS: ANION GAP 7 (5-19); CARBON DIOXIDE 39 mmol/L (22-30)
--- NOTE | 2017-10-28 15:41 | RADIOLOGY REPORT (SQ) ---
EXAM DESCRIPTION: CHEST PA/LATERAL COMPLETED DATE/TIME: 10/28/2017 2:44 pm REASON FOR STUDY: COUGH COMPARISON: 05/17/2017 EXAM PARAMETERS: NUMBER OF VIEWS: two views TECHNIQUE: Digital Frontal and Lateral radiographic views of the chest acquired. RADIATION DOSE: NA LIMITATIONS: none FINDINGS: LUNGS AND PLEURA: No opacities, masses or pneumothorax. No pleural effusion. MEDIASTINUM AND HILAR STRUCTURES: No masses or contour abnormalities. HEART AND VASCULAR STRUCTURES: Stable appearance. BONES: No acute findings. HARDWARE: None in the chest. OTHER: No other significant finding. IMPRESSION: 1 No significant interval changes since the prior examination dated 05/17/2017. No acute findings. TECHNICAL DOCUMENTATION: JOB ID: [id number] [employer])- All Rights Reserved Reading location - IP/workstation name: [email or web address]
== END ==
LOC: OD 14:16
PROVIDERS: ATTEND Nurse Practitioner Acute Care
DX: M79.89 Other specified soft tissue disorders (principal); R05 Cough
CPT/HCPCS: 36415; 71046; 80053; 83880; 85025

== ENCOUNTER 2017-11-14 22:46 | Inpatient (IN) | payer BC ==
--- NOTE | 2017-11-14 23:25 | ER Document Report ---
ED General - General Information source: Patient TRAVEL OUTSIDE OF THE [place] IN LAST 30 DAYS: No <ROBB ROACH - Last Filed: 11/15/17 02:47> <BALJEET MCLEAN - Last Filed: 11/15/17 03:21> - General Chief Complaint: Shortness Of Breath Stated Complaint: COUGH,LOWER EXTREMITY SWELLING Time Seen by Provider: 11/14/17 23:17 Notes: 46 y.o female presents to the ED with SOB, productive cough and orthopnea of onset a few weeks ago. Pt states that her sputum is clear. She also notes a swelling to her bilateral lower extremities causing a tightness and pain to her bilateral legs for the past week. Pt reports that she has been using an albuterol treatment of a family member at home with some relief. Pt denies any fever. Pt denies any hx or family history of CHF, blood clots, DE or strokes. ( ROBB ROACH) - Related Data Allergies/Adverse Reactions: No Known Allergies Allergy (Verified 05/17/17 01:12) Past Medical History - General Information source: Patient - Social History Smoking Status: Never Smoker Chew tobacco use (# tins/day): No Frequency of alcohol use: None Drug Abuse: None Family History: DM, Hypertension, Other - Father of cancer - Past Medical History Cardiac Medical History: Reports: Hx Hypertension Pulmonary Medical History: Reports: Hx Asthma, Hx Pneumonia Renal/ Medical History: Denies: Hx Peritoneal Dialysis Musculoskeletal Medical History: Reports Hx Arthritis - left knee Past Surgical History: Reports: Hx Oral Surgery - Immunizations Hx Diphtheria, Pertussis, Tetanus Vaccination: Yes <ROBB ROACH - Last Filed: 11/15/17 02:47> Review of Systems - Review of Systems Constitutional: See HPI. denies: Fever EENT: No symptoms reported Cardiovascular: See HPI, Edema Respiratory: See HPI, Cough, Short of breath, Sputum Gastrointestinal: No symptoms reported Genitourinary: No symptoms reported Female Genitourinary: No symptoms reported Musculoskeletal: No symptoms reported Skin: No symptoms reported Hematologic/Lymphatic: No symptoms reported Neurological/Psychological: No symptoms reported -: Yes All other systems reviewed and negative <ROBB ROACH - Last Filed: 11/15/17 02:47> Physical Exam <ROBB ROACH - Last Filed: 11/15/17 02:47> <BALJEET MCLEAN - Last Filed: 11/15/17 03:21> - Vital signs Vitals: Temp Pulse BP Pulse Ox 98.5 F 86 106/63 97 11/14/17 23:02 11/14/17 23:02 11/14/17 23:02 11/14/17 23:02 - Notes Notes: PHYSICAL EXAM GENERAL: Alert, interacts well. Obese, appears moderately SOB. HEAD: Normocephalic, atraumatic. EYES: Pupils equal, round, and reactive to light. Extraocular movements intact. ENT: Oral mucosa moist, tongue midline. NECK: Full range of motion. Supple. Trachea midline. LUNGS: End expiratory wheezing to the RT side, upper and lower lobes. No rales or rhonchi. Hypoxic, 90-91% reading to pulse oximeter on room air. HEART: Regular rate and rhythm. No murmurs, gallops, or rubs. ABDOMEN: Soft, non-tender. Non-distended. Bowel sounds present in all 4 quadrants. No guarding, rebound, or rigidity. EXTREMITIES: Moves all 4 extremities spontaneously. 2+ pitting edema at the bilateral ankles, 1+ pitting edema to bilateral lower extremities extending to the level of the knee. Radial and dorsalis pedis pulses 2/4 bilaterally. No hair is noted growing to her lower legs. She has some dry skin to the feet and lower half of the lower legs as well as some thickening and darkening of the skin around the ankles. NEUROLOGICAL: Alert and oriented x3. Normal speech. PSYCH: Normal affect, normal mood. SKIN: Warm, dry. See extremities above. (ROBB ROACH) Course - Laboratory Result Diagrams: 11/14/17 23:54 11/14/17 23:54 <ROBB ROACH - Last Filed: 11/15/17 02:47> - Laboratory Result Diagrams: 11/14/17 23:54 11/14/17 23:54 <BALJEET MCLEAN - Last Filed: 11/15/17 03:21> - Re-evaluation Re-evalutation: 11/15/17 01:57 CBC shows anemia with a hemoglobin of 11.1 this is unchanged from prior visit on 10/28/2017. No leukocytosis, chemistries show elevated potassium at 5.1, BUN elevated at 26 cardiac enzymes negative, proBNP unremarkable 136, chest x-ray unremarkable. EKG is nonischemic. Patient becomes hypoxic when she falls asleep, was placed on 2 L via nasal cannula but remains persistently hypoxic when sleeping. Patient when questioned regarding this states that she has sleep apnea, states that she is aware she has sleep apnea and has had it since she was a kid. Has never been evaluated for it, has never seen a engineering operations leader or sleep specialist. I strongly recommended to the patient that she be evaluated by a engineering operations leader for this or Dr. Eller 1 of our sleep physicians. Patient on reexamination does still have some wheezing on the right side of her chest, she is still requiring 2 L oxygen via nasal cannula to maintain her oxygen saturation at 95% while awake. I am concerned for the possibility of a pulmonary embolism, we will proceed with CT angiogram of the chest. 11/15/17 03:14 CT angiogram does not reveal any pulmonary embolism, patient has been started on BiPAP for her hypoxia while sleeping and while at rest. Patient was ambulated and was markedly hypoxic during ambulation. I did contact the hospitalist Dr. Sawyer who accepted patient for admission to his service on the telemetry care unit. (BALJEET MCLEAN) - Vital Signs Vital signs: Temp Pulse Resp BP Pulse Ox 98.5 F 86 23 H 129/74 H 93 11/14/17 23:02 11/14/17 23:02 11/15/17 03:00 11/15/17 02:40 11/15/17 03:00 - Laboratory Laboratory results interpreted by me: 11/14/17 11/14/17 11/14/17 23:54 23:54 23:54 Hgb 11.1 L MCV 76 L MCH 22.7 L MCHC 29.8 L RDW 17.6 H Potassium 5.1 H Chloride 96 L Carbon Dioxide 36 H BUN 26 H Est GFR (Non-Af Amer) 50 L Creatine Kinase 160 H NT-Pro-B Natriuret Pep 136 H - EKG Interpretation by Me Additional EKG results interpreted by me: 11/15/17 01:59 EKG shows sinus rhythm at a rate of 79, normal axis, normal intervals, no ST segment elevations or depressions, there are T-wave inversions in lead III which are isolated and nonspecific per my interpretation. (BALJEET MCLEAN) Critical Care Note - Critical Care Note Total time excluding time spent on procedures (mins): 35 <BLAJEET MCLEAN - Last Filed: 11/15/17 03:21> Discharge <ROBB ROACH - Last Filed: 11/15/17 02:47> - Discharge Admitting Provider: Hospitalist - [facility] Unit Admitted: Telemetry <BALJEET MCLEAN - Last Filed: 11/15/17 03:21> - Discharge Clinical Impression: Acute hypoxemic respiratory failure, Morbid (severe) obesity due to excess calories, Peripheral edema Sleep apnea Qualifiers: Sleep apnea type: unspecified type Qualified Code(s): G47.30 - Sleep apnea, unspecified Condition: Fair Disposition: ADMITTED INPATIENT Referrals: ROMAN SIFUENTES NP [NURSE PRACTITIONER] - Follow up as needed Scribe Attestation: 11/15/17 03:21 I personally performed the services described in the documentation, reviewed and edited the documentation which was dictated to the scribe in my presence, and it accurately records my words and actions. (BALJEET MCLEAN) Scribe Documentation - Scribe Written by Zuly:: Zuly Bustos 11/14/17 [id number] acting as scribe for :: Silvina <ROBB ROACH - Last Filed: 11/15/17 02:47>
[2017-11-14] MEDS ORDERED: ASPIRIN 81 MG TABLET, CHEWABLE PO ONE (23:31)
[2017-11-14] MEDS ORDERED: ALBUTEROL SULFATE 0.083% NEB 2.5 MG/3 ML AMPUL NEB ONE (23:31)
--- NOTE | 2017-11-14 23:57 | RADIOLOGY REPORT (SQ) ---
PROCEDURE: XR CHEST 1 VIEW HISTORY: cough, wheeze, SOB COMPARISON: 10/28/2017 TECHNIQUE: Single projection of the chest was done. FINDINGS: The lung smiley are well inflated . There are no discrete airspace infiltrates, pneumothoraces or pleural effusions. The pulmonary vascularity is normal. The cardiomediastinal silhouette is stable. IMPRESSION: There is no acute pleural-parenchymal process seen in the imaged lung smiley. Location of Interpretation: [facility]
[2017-11-15 00:26] LABS: ABSOLUTE EOSINOPHILS # (AUTO) 0.3 10^3/uL (0.0-0.6); ABSOLUTE LYMPHOCYTES (AUTO) 1.5 10^3/uL (0.5-4.7); ABSOLUTE NEUT (AUTO) 5.5 10^3/uL (1.7-8.2); BASOPHILS % (AUTO) 0.4 % (0-2); HEMATOCRIT 37.2 % (36.0-47.0); HEMOGLOBIN 11.1 g/dL (12.0-15.5); LYMPHOCYTES % (AUTO) 17.7 % (13-45); MEAN CORPUSCULAR HEMOGLOBIN 22.7 pg (27.0-33.4); MEAN CORPUSCULAR HGB CONC 29.8 g/dL (32.0-36.0); MEAN CORPUSCULAR VOLUME 76 fl (80-97); MONOCYTES % (AUTO) 11.7 % (3-13); PLATELET COUNT 306 10^3/uL (150-450); RED BLOOD COUNT 4.87 10^6/uL (3.72-5.28); RED CELL DISTRIBUTION WIDTH 17.6 % (11.5-14.0); SEGMENTED NEUTROPHILS % (AUTO) 66.2 % (42-78); TOTAL CELLS COUNTED % (AUTO) 100 %; WHITE BLOOD COUNT 8.3 10^3/uL (4.0-10.5)
[2017-11-15 00:31] LABS: ALANINE AMINOTRANSFERASE 17 U/L (9-52); ALBUMIN 3.6 g/dL (3.5-5.0); ALKALINE PHOSPHATASE 88 U/L (38-126); ANION GAP 10 (5-19); ASPARTATE AMINO TRANSFERASE 23 U/L (14-36); BILIRUBIN,DIRECT 0.3 mg/dL (0.0-0.4); BILIRUBIN,TOTAL 0.4 mg/dL (0.2-1.3); BLOOD UREA NITROGEN 26 mg/dL (7-20); CALCIUM 8.6 mg/dL (8.4-10.2); CARBON DIOXIDE 36 mmol/L (22-30); CHLORIDE 96 mmol/L (98-107); CREATINE KINASE 160 U/L (30-135); GLUCOSE 109 mg/dL (75-110); POTASSIUM 5.1 mmol/L (3.6-5.0); SODIUM 141.8 mmol/L (137-145); TOTAL PROTEIN 7.7 g/dL (6.3-8.2)
[2017-11-15 00:42] LABS: CREATINE KINASE MB 1.52 ng/mL (<4.55); NT PRO BNP 136 pg/mL (<125)
[2017-11-15 00:43] LABS: TROPONIN I < 0.012 ng/mL
[2017-11-15] MEDS ORDERED: ACETAMINOPHEN 325 MG TABLET PO ONE (02:40)
[2017-11-15] MEDS ORDERED: METHYLPREDNISOLONE INJ 125 MG/2 ML SDV IV ONE (02:43)
[2017-11-15] MEDS ORDERED: IPRATROPIUM/ALBUTEROL 0.5-2.5 MG/3 ML AMPUL NEB ONE ×2 (02:43→04:30)
--- NOTE | 2017-11-15 02:54 | RADIOLOGY REPORT (SQ) ---
EXAM DESCRIPTION: CT CHEST ANGIOGRAPHY WITHOUT THEN WITH IV CONTRAST COMPLETED DATE/TME: 11/15/2017 01:39 CLINICAL HISTORY: 46 years, Female, SOB, hypoxia, chest pain COMPARISON: 05/21/2017 TECHNIQUE: Axial CT images of the chest were obtained after the administration of IV contrast. MPR and MIP reconstructions were performed. [facility] 1611 Images stored on PACS. All CT scanners at this facility use dose modulation, iterative reconstruction, and/or weight based dosing when appropriate to reduce radiation dose to as low as reasonably achievable (ALARA). [facility]: Dose Right [facility]: CareDose [facility]: Dose Right [facility]: Teradose 4D [facility]: Smart Predictify LIMITATIONS: None. FINDINGS: Upper abdomen: Partially imaged. Thoracic aorta: Unremarkable. Heart: No right atrial thrombus. RV/LV ratio: Within normal limits. Pulmonary arteries: Technical: Adequate opacification to the level of the segmental vessels. Pulmonary embolus: No low-density filling defect to suggest acute PE. Overall embolic burden: None. Mediastinum: No pathologic sized middle mediastinal lymphadenopathy. Tracheobronchial tree: Unremarkable. Lungs: Lobar consolidation: Negative. Pleural effusion: Negative. Pneumothorax: Negative. Other: Negative. Bones: Unremarkable. IMPRESSION: No evidence of acute PE TECHNICAL DOCUMENTATION: Quality ID # [id number]: Final reports with documentation of one or more dose reduction techniques (e.g., Automated exposure control, adjustment of the mA and/or kV according to patient size, use of iterative reconstruction technique) 2010 [employer]- All Rights Reserved
[2017-11-15] MEDS ORDERED: ONDANSETRON HCL INJ/PF 4 MG/2 ML SDV IV PRN (04:16)
[2017-11-15] MEDS ORDERED: IPRATROPIUM/ALBUTEROL 0.5-2.5 MG/3 ML AMPUL NEB PRN (04:16)
[2017-11-15 06:05] LABS: ARTERIAL BLOOD BASE EXCESS 7.3 mmol/L; ARTERIAL BLOOD H2CO3 3.11 mmol/L (1.05-1.35); ARTERIAL BLOOD PO2 84.1 mmHg (80-100); ARTERIAL BLOOD TOTAL CO2 42.1 mmol/L (21-25)
[2017-11-15 06:12] LABS: ARTERIAL BLOOD FIO2 3L
[2017-11-15 06:14] LABS: ARTERIAL BLOOD PCO2 103.2 mmHg (35-45)
--- NOTE | 2017-11-15 07:03 | PDOC H&P ---
History of Present Illness Admission Date/PCP: 11/15/17 03:34 none Patient complains of: Shortness of breath; cough and dyspnea History of Present Illness: AMALIA ABDI is a 46 year old female with past medical history of morbid obesity, hypertension, asthma who presents to the emergency room with complaint of shortness of breath and productive cough as well as orthopnea for a few weeks along with bilateral lower extremity swelling and edema. Patient has been using her home inhaler without improvement. Patient denies fever or chills or chest pain. Patient denies history of CHF or DVT or PE. No recent sick contacts or travel. On arrival to emergency room patient was afebrile however tachypneic and hypoxic with oxygen saturation dropping to 88% on room air. Chest x-ray was unremarkable. CT angios showed no evidence of PE. Her laboratory workup showed normal WBC count. Troponin was negative. BNP is 136. ABG showed pH of 7.1. With the PCO2 103 and PO2 of 84 on 3 L nasal cannula. Patient was placed on BiPAP and was given Solu-Medrol along with breathing treatment. She was referred to for admission. Past Medical History Cardiac Medical History: Reports: Hypertension Pulmonary Medical History: Reports: Asthma, Pneumonia Denies: Tuberculosis Neurological Medical History: Denies: Seizures Musculoskeltal Medical History: Reports: Arthritis - left knee Psychiatric Medical History: Denies: Depression Past Surgical History Past Surgical History: Social History Information Source: Patient Smoking Status: Never Smoker Frequency of Alcohol Use: None Hx Recreational Drug Use: No Drugs: None Hx Prescription Drug Abuse: No Family History Family History: DM, Hypertension, Other - Father of cancer Parental Family History Reviewed: No Children Family History Reviewed: No Sibling(s) Family History Reviewed.: No Medication/Allergy Allergies/Adverse Reactions: No Known Allergies Allergy (Verified 05/17/17 01:12) Review of Systems All systems: reviewed and no additional remarkable complaints except as stated Physical Exam Vital Signs: Temp Pulse Resp BP Pulse Ox 97.7 F 82 18 131/61 H 92 11/15/17 05:07 11/15/17 06:00 11/15/17 05:18 11/15/17 05:07 11/15/17 05:18 Intake & Output 11/13/17 11/14/17 11/15/17 06:59 06:59 06:59 Intake Total 0 Balance 0 Weight 351 lb 13.724 oz General appearance: PRESENT: cooperative, mild distress, obese, well-developed, well-nourished Head exam: PRESENT: atraumatic, normocephalic Eye exam: PRESENT: conjunctiva pink, EOMI, PERRLA. ABSENT: scleral icterus Ear exam: PRESENT: normal external ear exam Mouth exam: PRESENT: moist, tongue midline Neck exam: ABSENT: carotid bruit, JVD, lymphadenopathy, thyromegaly Respiratory exam: PRESENT: decreased breath sounds, wheezes Cardiovascular exam: PRESENT: RRR. ABSENT: diastolic murmur, rubs, systolic murmur GI/Abdominal exam: PRESENT: normal bowel sounds, soft. ABSENT: distended, guarding, mass, organolmegaly, rebound, tenderness Rectal exam: PRESENT: deferred Gentrourinary exam: ABSENT: ecchymosis, erythema, lacerations, lesions, scrotal swelling, testicular tenderness, urethral discharge, indwelling catheter, other Extremities exam: ABSENT: calf tenderness, clubbing, full ROM, joint swelling, pedal edema, tenderness, +1 edema, +2 edema, other Musculoskeletal exam: PRESENT: ambulatory Neurological exam: PRESENT: alert, awake, oriented to person, oriented to place , oriented to time, oriented to situation, CN II-XII grossly intact. ABSENT: motor sensory deficit Psychiatric exam: PRESENT: appropriate affect, normal mood. ABSENT: homicidal ideation, suicidal ideation Skin exam: PRESENT: dry, intact, warm. ABSENT: cyanosis, rash Results Laboratory Results: 11/15/17 05:50 Carbonic Acid 3.11 H HCO3/H2CO3 Ratio 12:1 ABG pH 7.20 L* ABG pCO2 103.2 H* ABG pO2 84.1 ABG HCO3 39.0 H ABG O2 Saturation 93.0 L ABG Base Excess 7.3 FiO2 3L 11/15/17 03:45 Troponin I < 0.012 All labs reviewed Impressions: Chest X-Ray 11/14/17 23:31 IMPRESSION: There is no acute pleural-parenchymal process seen in the imaged lung smiley. Location of Interpretation: [facility] Chest/Abdomen CTA 11/15/17 01:39 IMPRESSION: No evidence of acute PE TECHNICAL DOCUMENTATION: Quality ID # 436: Final reports with documentation of one or more dose reduction techniques (e.g., Automated exposure control, adjustment of the mA and/or kV according to patient size, use of iterative reconstruction technique) 2010 [employer]- All Rights Reserved Status: Image reviewed by me Assessment & Plan - Diagnosis (1) Acute respiratory failure with hypoxia and hypercapnia Is this a current diagnosis for this admission?: Yes Plan: Patient with acute respiratory failure likely secondary to asthma exacerbation and underlying obesity hypoventilation and sleep apnea. CTA is negative for PE. Patient will be continued on BiPAP and will recheck ABG. (2) Asthma exacerbation Is this a current diagnosis for this admission?: Yes Plan: Patient with excessive asthma exacerbation. Will continue Solu-Medrol and scheduled and as needed nebs. (3) Peripheral edema Is this a current diagnosis for this admission?: Yes Plan: Likely secondary to pulmonary hypertension and right-sided heart failure. Will continue Lasix. - Time Time Spent: 50 to 70 Minutes - Inpatient Certification Medical Necessity: Need Close Monitoring Due to Risk of Patient Decompensation, Need For Continuous Telemetry Monitoring
[2017-11-15] MEDS: IPRATROPIUM/ALBUTEROL 0.5-2.5 MG/3 ML AMPUL NEB SCH ×4 (09:17→19:53)
[2017-11-15 09:43] LABS: ANION GAP 8 (5-19); BLOOD UREA NITROGEN 26 mg/dL (7-20); CALCIUM 8.3 mg/dL (8.4-10.2); CARBON DIOXIDE 38 mmol/L (22-30); CHLORIDE 97 mmol/L (98-107); GLUCOSE 124 mg/dL (75-110); POTASSIUM 4.9 mmol/L (3.6-5.0); SODIUM 142.6 mmol/L (137-145)
[2017-11-15 10:44] LABS: ARTERIAL BLOOD H2CO3 2.71 mmol/L (1.05-1.35); ARTERIAL BLOOD HCO3 37.7 mmol/L (20-26); ARTERIAL BLOOD O2 SATURATION 92.4 % (94-98); ARTERIAL BLOOD PH 7.24 (7.35-7.45); ARTERIAL BLOOD PO2 77.7 mmHg (80-100); ARTERIAL BLOOD TOTAL CO2 40.4 mmol/L (21-25)
[2017-11-15 10:46] LABS: ARTERIAL BLOOD FIO2 3L
[2017-11-15 10:49] LABS: ARTERIAL BLOOD PCO2 89.9 mmHg (35-45)
[2017-11-15] MEDS: FUROSEMIDE INJ/PF 40 MG/4 ML SDV IV SCH (11:02)
[2017-11-15] MEDS: METHYLPREDNISOLONE INJ 40 MG/1 ML SDV IV SCH ×2 (11:02→17:49)
[2017-11-15] MEDS: ENOXAPARIN SODIUM INJ 40 MG/0.4 ML DISP.SYRIN SUBCUT SCH (11:03)
--- NOTE | 2017-11-15 12:28 | PDOC PROGRESS REPORT ---
Subjective Progress Note for:: 11/15/17 Subjective:: Patient admitted overnight for asthma exacerbation. She is doing better at this time, awake, alert and oriented. She is taking of BiPAP most of the time per respiratory therapist. She states she took it off to eat. Repeat ABG still with acidosis but improving CO2. Patient encouraged to use her BiPAP as much as possible and throughout the night. Reason For Visit: HYPOXIA Physical Exam Vital Signs: Temp Pulse Resp BP Pulse Ox 97.9 F 76 13 133/73 H 100 11/15/17 08:05 11/15/17 09:21 11/15/17 09:21 11/15/17 08:05 11/15/17 09:21 Intake & Output 11/14/17 11/15/17 11/16/17 06:59 06:59 06:59 Intake Total 0 Balance 0 Weight 159.6 kg GEN: NAD, well-developed, well-nourished CV: RRR, NL S1S2 LUNGS: Scattered wheezing bilaterally, good air entry ABDOMEN Soft, NT, +BS EXTERMITIES: 1+ nonpitting edema bilaterally NEURO: Alert, oriented 3, nonfocal Results Laboratory Results: 11/15/17 03:45 11/15/17 11/15/17 11/15/17 03:45 05:50 10:30 Carbonic Acid 3.11 H 2.71 H HCO3/H2CO3 Ratio 12:1 13:1 ABG pH 7.20 L* 7.24 L ABG pCO2 103.2 H* 89.9 H* ABG pO2 84.1 77.7 L ABG HCO3 39.0 H 37.7 H ABG O2 Saturation 93.0 L 92.4 L ABG Base Excess 7.3 7.0 FiO2 3L 3L Sodium 142.6 Potassium 4.9 Chloride 97 L Carbon Dioxide 38 H Anion Gap 8 BUN 26 H Creatinine 1.18 Est GFR ( Amer) > 60 Est GFR (Non-Af Amer) 50 L Glucose 124 H Calcium 8.3 L 11/15/17 03:45 Troponin I < 0.012 Impressions: Chest X-Ray 11/14/17 23:31 IMPRESSION: There is no acute pleural-parenchymal process seen in the imaged lung smiley. Location of Interpretation: [facility] Chest/Abdomen CTA 11/15/17 01:39 IMPRESSION: No evidence of acute PE TECHNICAL DOCUMENTATION: Quality ID # 436: Final reports with documentation of one or more dose reduction techniques (e.g., Automated exposure control, adjustment of the mA and/or kV according to patient size, use of iterative reconstruction technique) 2010 [employer]- All Rights Reserved Assessment & Plan - Diagnosis (1) Acute respiratory failure with hypoxia and hypercapnia Is this a current diagnosis for this admission?: Yes Plan: Likely secondary to asthma exacerbation. Continue Solu-Medrol IV for now. Continue nebulizers, BiPAP, O2. Patient encouraged to comply with BiPAP as much as possible during the day and to wear overnight. Will recheck ABG in a.m. (2) Asthma exacerbation Is this a current diagnosis for this admission?: Yes Plan: As in #1 above. (3) Peripheral edema Is this a current diagnosis for this admission?: Yes Plan: Echo from May 2017 with normal EF. Edema could be secondary to pulmonary hypertension. Continue Lasix 40 mg IV daily for now. (4) Pulmonary hypertension Is this a current diagnosis for this admission?: Yes Plan: Echo from 05/22/17 reveals severe pulmonary hypertension. This is likely secondary to sleep apnea. Patient will follow up with PCP as outpatient to arrange sleep study and treatment as indicated. She is also to have a referral to matcher operator.
--- NOTE | 2017-11-15 18:15 | EKG REPORT ---
SEVERITY:- NORMAL ECG - SINUS RHYTHM : Confirmed by: Mj Eller 15-Nov-2017 18:15:13
[2017-11-16] MEDS: IPRATROPIUM/ALBUTEROL 0.5-2.5 MG/3 ML AMPUL NEB SCH ×6 (00:58→20:08)
[2017-11-16] MEDS: ACETAMINOPHEN 325 MG TABLET PO PRN (01:23)
[2017-11-16] MEDS: METHYLPREDNISOLONE INJ 40 MG/1 ML SDV IV SCH ×2 (01:24→09:25)
[2017-11-16 06:55] LABS: BLOOD UREA NITROGEN 34 mg/dL (7-20); CALCIUM 8.7 mg/dL (8.4-10.2); CHLORIDE 93 mmol/L (98-107); GLUCOSE 153 mg/dL (75-110); POTASSIUM 5.7 mmol/L (3.6-5.0); SODIUM 140.6 mmol/L (137-145)
[2017-11-16 07:03] LABS: ANION GAP 9 (5-19); CARBON DIOXIDE 39 mmol/L (22-30)
[2017-11-16] MEDS ORDERED: IBUPROFEN 400 MG TABLET PO ONE (09:00)
[2017-11-16] MEDS: ENOXAPARIN SODIUM INJ 40 MG/0.4 ML DISP.SYRIN SUBCUT SCH (09:25)
[2017-11-16] MEDS: FUROSEMIDE INJ/PF 40 MG/4 ML SDV IV SCH (09:25)
[2017-11-16] MEDS ORDERED: BUTALB/ACETAMINOPHEN/CAFFEINE 1 TAB EACH PO ONE (12:00)
[2017-11-16 13:39] LABS: ARTERIAL BLOOD BASE EXCESS 15.4 mmol/L; ARTERIAL BLOOD H2CO3 2.91 mmol/L (1.05-1.35); ARTERIAL BLOOD HCO3 46.1 mmol/L (20-26); ARTERIAL BLOOD O2 SATURATION 95.5 % (94-98); ARTERIAL BLOOD PO2 91.1 mmHg (80-100); ARTERIAL BLOOD TOTAL CO2 49.1 mmol/L (21-25)
[2017-11-16 13:41] LABS: ARTERIAL BLOOD FIO2 35%
[2017-11-16 13:43] LABS: ARTERIAL BLOOD PCO2 96.6 mmHg (35-45)
--- NOTE | 2017-11-16 14:36 | PDOC PROGRESS REPORT ---
Subjective Progress Note for:: 11/16/17 Subjective:: No acute event overnight. She is saturating well on nasal cannula. She denies SOB. No somnolence despite severely elevated PCO2. No cough, fever or chills. Reason For Visit: HYPOXIA Physical Exam Vital Signs: Temp Pulse Resp BP Pulse Ox 97.8 F 58 L 18 130/74 H 98 11/16/17 11:14 11/16/17 11:21 11/16/17 11:21 11/16/17 11:14 11/16/17 11:21 Intake & Output 11/15/17 11/16/17 11/17/17 06:59 06:59 06:59 Intake Total 0 768 118 Output Total 700 Balance 0 68 118 Weight 351 lb 13.724 oz 353 lb 13.471 oz 353 lb 13.471 oz General appearance: PRESENT: no acute distress, morbidly obese Head exam: PRESENT: atraumatic, normocephalic Eye exam: PRESENT: conjunctiva pink, EOMI, PERRLA. ABSENT: scleral icterus Ear exam: PRESENT: normal external ear exam Neck exam: ABSENT: carotid bruit, JVD, lymphadenopathy, thyromegaly Respiratory exam: PRESENT: clear to auscultation marcelino. ABSENT: rales, rhonchi, wheezes Cardiovascular exam: PRESENT: RRR, rubs. ABSENT: diastolic murmur, systolic murmur Pulses: PRESENT: normal dorsalis pedis pul GI/Abdominal exam: PRESENT: normal bowel sounds, soft. ABSENT: distended, guarding, mass, organolmegaly, rebound, tenderness Rectal exam: PRESENT: deferred Extremities exam: PRESENT: +2 edema Musculoskeletal exam: PRESENT: ambulatory Neurological exam: PRESENT: alert, awake, oriented to person, oriented to place , oriented to time, oriented to situation, CN II-XII grossly intact. ABSENT: motor sensory deficit Skin exam: PRESENT: dry, intact, warm. ABSENT: cyanosis, rash Results Laboratory Results: 11/16/17 06:10 11/16/17 11/16/17 06:10 13:10 Carbonic Acid 2.91 H HCO3/H2CO3 Ratio 15:1 ABG pH 7.30 L ABG pCO2 96.6 H* ABG pO2 91.1 ABG HCO3 46.1 H ABG O2 Saturation 95.5 ABG Base Excess 15.4 FiO2 35% Sodium 140.6 Potassium 5.7 H Chloride 93 L Carbon Dioxide 39 H Anion Gap 9 BUN 34 H Creatinine 0.96 Est GFR ( Amer) > 60 Est GFR (Non-Af Amer) > 60 Glucose 153 H Calcium 8.7 11/15/17 03:45 Troponin I < 0.012 Impressions: Chest X-Ray 11/14/17 23:31 IMPRESSION: There is no acute pleural-parenchymal process seen in the imaged lung smiley. Location of Interpretation: [facility] Chest/Abdomen CTA 11/15/17 01:39 IMPRESSION: No evidence of acute PE TECHNICAL DOCUMENTATION: Quality ID # 436: Final reports with documentation of one or more dose reduction techniques (e.g., Automated exposure control, adjustment of the mA and/or kV according to patient size, use of iterative reconstruction technique) 2010 [employer]- All Rights Reserved Assessment & Plan - Diagnosis (1) Acute and chronic respiratory failure ([id number]) Qualifiers: Respiratory failure complication: hypoxia and hypercapnia Qualified Code(s) : J96.21 - Acute and chronic respiratory failure with hypoxia; J96.22 - Acute and chronic respiratory failure with hypercapnia; J96.22 - Acute and chronic respiratory failure with hypercapnia; J96.22 - Acute and chronic respiratory failure with hypercapnia Is this a current diagnosis for this admission?: Yes Plan: Patient initially came with hypoxia. ABG she did show significant hypercarbia. Patient has a long standing history of sleep apnea with no CPAP use due to her claustrophobia. Repeat ABG an hour after being on BIPAP reveals a pH of 7.3, pCO2 96, HCO 36 and pO2 of 91. ABG is consistent with chronic hypercarbia. Consult Pulm. Discussed with Dr. Hernandez over the phone. Patient will need BIPAP or Trilogy ventilator on discharge. (2) Severe pulmonary arterial systolic hypertension Is this a current diagnosis for this admission?: Yes Plan: Echo shows an RSVP of 50-70. The patient has long-standing sleep apnea and possible obesity related hypoventilation syndrome, the extent of the severity of pulmonary hypertension warrants further workup for possible primary or idiopathic pulmonary artery hypertension. Patient will need to follow up with pulm and/or pulmo HTN clinic on outpatient basis. CTA chest was negative for PE. (3) Right heart failure due to pulmonary hypertension Is this a current diagnosis for this admission?: Yes Plan: Patient has peripheral edema. She does not have other clinical or radiologic signs of congestion. Patient likely has possible right-sided heart failure secondary to severe pulmonary hypertension. We will switch IV Lasix to p.o. Lasix will be decreased to 20 mg daily upon discharge. (4) Asthma exacerbation Is this a current diagnosis for this admission?: Yes Plan: Although, the patient was noted to have a few wheezes upon admission, she denies prior diagnosis of asthma in the past. She does not use home inhalers. Switch IV Solu-Medrol to prednisone. Continue breathing treatments.
[2017-11-16] MEDS: PREDNISONE 20 MG TABLET PO SCH (17:10)
[2017-11-17] MEDS: IPRATROPIUM/ALBUTEROL 0.5-2.5 MG/3 ML AMPUL NEB SCH ×7 (00:21→23:36)
[2017-11-17] MEDS: PREDNISONE 20 MG TABLET PO SCH ×2 (09:30→17:10)
[2017-11-17] MEDS: FUROSEMIDE 40 MG TABLET PO SCH (09:30)
[2017-11-17] MEDS: ENOXAPARIN SODIUM INJ 40 MG/0.4 ML DISP.SYRIN SUBCUT SCH (09:30)
[2017-11-17 09:46] LABS: ARTERIAL BLOOD BASE EXCESS 16.5 mmol/L; ARTERIAL BLOOD FIO2 35%; ARTERIAL BLOOD HCO3 47.1 mmol/L (20-26); ARTERIAL BLOOD O2 SATURATION 96.8 % (94-98); ARTERIAL BLOOD PH 7.31 (7.35-7.45); ARTERIAL BLOOD PO2 103.7 mmHg (80-100)
[2017-11-17 09:47] LABS: ARTERIAL BLOOD PCO2 96.3 mmHg (35-45)
--- NOTE | 2017-11-17 15:00 | PDOC PROGRESS REPORT ---
Subjective Progress Note for:: 11/17/17 Subjective:: No acute event overnight. She denies SOB or chest pain. No somnolence or confusion despite severely elevated PCO2. No cough, fever or chills. Patient just had a 6 minute walk test and she desaturated to 60%. Reason For Visit: ACUTE RESPIRATORY FAILURE,SEVERE PULMONARY Physical Exam Vital Signs: Temp Pulse Resp BP Pulse Ox 97.8 F 91 18 127/79 H 100 11/17/17 03:10 11/17/17 14:00 11/17/17 11:51 11/17/17 03:10 11/17/17 11:51 Intake & Output 11/16/17 11/17/17 11/18/17 06:59 06:59 06:59 Intake Total 668 476 555 Output Total 700 200 Balance -32 476 355 Weight 353 lb 13.471 oz 352 lb 11.834 oz General appearance: PRESENT: no acute distress, morbidly obese Head exam: PRESENT: atraumatic, normocephalic Eye exam: PRESENT: conjunctiva pink, EOMI, PERRLA. ABSENT: scleral icterus Ear exam: PRESENT: normal external ear exam Throat exam: PRESENT: tonsillogmegaly, other - Patient does have enlarged tonsils and appears to have a low palatal floor. Neck exam: ABSENT: carotid bruit, JVD, lymphadenopathy, thyromegaly Respiratory exam: PRESENT: clear to auscultation marcelino. ABSENT: rales, rhonchi, wheezes Cardiovascular exam: PRESENT: RRR. ABSENT: diastolic murmur, rubs, systolic murmur Pulses: PRESENT: normal dorsalis pedis pul GI/Abdominal exam: PRESENT: normal bowel sounds, soft. ABSENT: distended, guarding, mass, organolmegaly, rebound, tenderness Rectal exam: PRESENT: deferred Extremities exam: PRESENT: full ROM, +2 edema. ABSENT: calf tenderness, clubbing Neurological exam: PRESENT: alert, awake, oriented to person, oriented to place , oriented to time, oriented to situation, CN II-XII grossly intact. ABSENT: motor sensory deficit Psychiatric exam: PRESENT: appropriate affect, normal mood. ABSENT: homicidal ideation, suicidal ideation Skin exam: PRESENT: dry, intact, warm. ABSENT: cyanosis, rash Results Laboratory Results: 11/17/17 04:27 08/07/3111/17/17 11/17/17 16:51 04:27 09:09 Carbonic Acid 2.90 H HCO3/H2CO3 Ratio 16:1 ABG pH 7.31 L ABG pCO2 96.3 H* ABG pO2 103.7 H ABG HCO3 47.1 H ABG O2 Saturation 96.8 ABG Base Excess 16.5 FiO2 35% Potassium 5.3 H 5.0 Impressions: Chest X-Ray 11/14/17 23:31 IMPRESSION: There is no acute pleural-parenchymal process seen in the imaged lung smiley. Location of Interpretation: [facility] Chest/Abdomen CTA 11/15/17 01:39 IMPRESSION: No evidence of acute PE TECHNICAL DOCUMENTATION: Quality ID # [id number]: Final reports with documentation of one or more dose reduction techniques (e.g., Automated exposure control, adjustment of the mA and/or kV according to patient size, use of iterative reconstruction technique) 2010 [employer]- All Rights Reserved Assessment & Plan - Diagnosis (1) Acute and chronic respiratory failure ([id number]) Qualifiers: Respiratory failure complication: hypoxia and hypercapnia Qualified Code(s) : J96.21 - Acute and chronic respiratory failure with hypoxia; J96.22 - Acute and chronic respiratory failure with hypercapnia; J96.22 - Acute and chronic respiratory failure with hypercapnia; J96.22 - Acute and chronic respiratory failure with hypercapnia Is this a current diagnosis for this admission?: Yes Plan: This is acute on chronic hypoxic and hypercapnic respiratory failure. Patient initially came with hypoxia. ABG she did show significant hypercarbia. Patient has a long standing history of sleep apnea with no CPAP use due to her claustrophobia. ABG even and BiPAP still showed persistently and severely elevated PCO2. Did a 6 minute walk test today and patient desaturated to 65% while walking on room air. ABG is consistent with chronic hypercarbia. Pulmonology following. Patient will need Trilogy ventilator on discharge. Patient will also need to go on home O2 because of 6 minute walk test result. (2) Severe pulmonary arterial systolic hypertension Is this a current diagnosis for this admission?: Yes Plan: Echo shows an RSVP of 50-70. CTA chest was negative for PE. The patient has long -standing sleep apnea and possible obesity related hypoventilation syndrome, the extent of the severity of pulmonary hypertension warrants further workup for possible primary or idiopathic pulmonary artery hypertension. Patient will need to follow up with pulm and/or pulmo HTN clinic on outpatient basis. Please set up patient with outpatient follow-up with Dr. Caicedo is Dr. Caicedo did say that he can hook the patient up with a pulmonary hypertension clinic on outpatient basis. (3) Right heart failure due to pulmonary hypertension Is this a current diagnosis for this admission?: Yes Plan: Patient has peripheral edema. She does not have other clinical or radiologic signs of congestion. Patient likely has possible right-sided heart failure secondary to severe pulmonary hypertension. We will switch IV Lasix to p.o. Lasix will be decreased to 20 mg daily upon discharge. (4) Asthma exacerbation Is this a current diagnosis for this admission?: Yes Plan: Although, the patient was noted to have a few wheezes upon admission, she denies prior diagnosis of asthma in the past. She does not use home inhalers. Continue prednisone. Continue breathing treatments prn. - Time Time Spent with patient: 25-34 minutes
[2017-11-18] MEDS: IPRATROPIUM/ALBUTEROL 0.5-2.5 MG/3 ML AMPUL NEB SCH ×5 (03:27→19:58)
[2017-11-18] MEDS: ENOXAPARIN SODIUM INJ 40 MG/0.4 ML DISP.SYRIN SUBCUT SCH (11:45)
[2017-11-18] MEDS: FUROSEMIDE 40 MG TABLET PO SCH (11:46)
[2017-11-18] MEDS: PREDNISONE 20 MG TABLET PO SCH (11:46)
--- NOTE | 2017-11-18 12:01 | PDOC CONSULTATION ---
Consultation Consult Date: 11/16/17 Attending physician:: NICHELLE LAUREN Consult reason:: chronic resp failure History of Present Illness Admission Date/PCP: 11/15/17 03:34 History of Present Illness: AMALIA ABDI is a 46 year old female,admitted after 3 months of cough and increasing shortness of breath when she presented her pH is 7.1 and she had a PCO2 of 106 she subsequently has been started on BiPAP with some improvement is she is responsive to questions somewhat sluggish she denies nausea vomiting is chills chest pain does admit to some edema in her PPD is negative dates unknown she had a history asthma as a child.She admits to exposed to passive smoke as a child as well as an adult. She works as a nursing technician and denies any exposure to potential respiratory toxins no pets no recent travel no angina- like chest pain sleeps on 3-4 pillows occasional PND occasional nocturnal cough frequent edema she admits to snoring restless sleep nocturia 3-4 times per night unrestful sleep and excessive daytime somnolence. Past Medical History Cardiac Medical History: Reports: Hypertension Pulmonary Medical History: Reports: Asthma, Pneumonia Denies: Tuberculosis Neurological Medical History: Denies: Hemorrhagic CVA, Ischemic CVA, Multiple Sclerosis, Seizures Renal/ Medical History: Denies: End Stage Renal Disease, Nephrolithiasis Malignancy Medical History: Reports: None GI Medical History: Reports: Crohn's Disease Denies: Hepatitis, Ulcerative Colitis Musculoskeltal Medical History: Reports: Arthritis - left knee Skin Medical History: Denies: Psoriasis Psychiatric Medical History: Denies: Depression, Tobacco Dependency Traumatic Medical History: Denies: Traumatic Brain Injury Hematology: Denies: Hemophilia Infectious Medical History: Denies: Clostridium Difficile Past Surgical History Past Surgical History: Social History Information Source: Patient, [facility] Records Lives with: Family Smoking Status: Never Smoker Passive smoke exposure as: Both Frequency of Alcohol Use: None Hx Recreational Drug Use: No Drugs: None Hx Prescription Drug Abuse: No Do you have pets?: No Have you had any respiratory illnesses as a child?: No Have you been exposed to any sick contacts recently?: No Have you had any recent respiratory illnesses?: No Have you travelled outside of [place] in the past 12 months?: No Family History Family History: DM, Hypertension, Other - Father of cancer Parental Family History Reviewed: Yes Children Family History Reviewed: Yes Sibling(s) Family History Reviewed.: Yes Medication/Allergy Home Medications: Albuterol Sulfate [Albuterol Sulfate 2.5mg/3 mL] 1 vial IH Q12 11/15/17 Allergies/Adverse Reactions: No Known Allergies Allergy (Verified 05/17/17 01:12) Review of Systems Constitutional: PRESENT: fatigue, weight gain. ABSENT: anorexia Eyes: ABSENT: visual disturbances Ears: ABSENT: hearing changes Nose, Mouth, and Throat: ABSENT: mouth pain, sore throat Cardiovascular: PRESENT: dyspnea on exertion, edema, orthropnea. ABSENT: palpitations Respiratory: PRESENT: cough, dyspnea. ABSENT: hemoptysis Gastrointestinal: PRESENT: constipation, heartburn. ABSENT: abdominal pain, coffee ground emesis, hematemesis, hematochezia Genitourinary: PRESENT: nocturia. ABSENT: dysuria, hematuria Integumentary: ABSENT: pruritus, rash Neurological: ABSENT: abnormal gait, abnormal movements, abnormal speech, confusion, frequent falls, lack of coordination, memory loss Psychiatric: ABSENT: hallucinations, homidical ideation, suicidal ideation Endocrine: ABSENT: cold intolerance, heat intolerance, polydipsia, polyuria Hematologic/Lymphatic: ABSENT: easy bruising Physical Exam Vital Signs: Temp Pulse Resp BP Pulse Ox 98.0 F 58 L 18 124/73 98 11/16/17 07:22 11/16/17 11:21 11/16/17 11:21 11/16/17 07:22 11/16/17 11:21 Intake & Output 11/15/17 11/16/17 11/17/17 06:59 06:59 06:59 Intake Total 0 768 Output Total 700 Balance 0 68 Weight 159.6 kg 160.5 kg 160.5 kg General appearance: PRESENT: no acute distress, cooperative, disheveled, morbidly obese Head exam: PRESENT: atraumatic, normocephalic Eye exam: PRESENT: conjunctiva pale, EOMI. ABSENT: nystagmus, periorbital swelling, scleral icterus Mouth exam: PRESENT: dry mucosa, neck supple, tongue midline Neck exam: ABSENT: carotid bruit, JVD, lymphadenopathy, thyromegaly, tracheal deviation, tracheostomy Respiratory exam: PRESENT: decreased breath sounds, prolonged expiratory phas, rhonchi, tachypnea, unlabored. ABSENT: retraction, stridor Cardiovascular exam: PRESENT: RRR, +S1, +S2 Pulses: PRESENT: normal radial pulses GI/Abdominal exam: PRESENT: hypoactive bowel sounds, soft Extremities exam: ABSENT: calf tenderness, clubbing, joint swelling Musculoskeletal exam: ABSENT: deformity, dislocation Neurological exam: PRESENT: awake Psychiatric exam: PRESENT: flat affect Skin exam: PRESENT: dry, warm Results Laboratory Results: 11/16/17 06:10 11/16/17 06:10 Sodium 140.6 Potassium 5.7 H Chloride 93 L Carbon Dioxide 39 H Anion Gap 9 BUN 34 H Creatinine 0.96 Est GFR ( Amer) > 60 Est GFR (Non-Af Amer) > 60 Glucose 153 H Calcium 8.7 11/15/17 03:45 Troponin I < 0.012 Impressions: Chest X-Ray 11/14/17 23:31 IMPRESSION: There is no acute pleural-parenchymal process seen in the imaged lung smiley. Location of Interpretation: [facility] Chest/Abdomen CTA 11/15/17 01:39 IMPRESSION: No evidence of acute PE TECHNICAL DOCUMENTATION: Quality ID # [id number]: Final reports with documentation of one or more dose reduction techniques (e.g., Automated exposure control, adjustment of the mA and/or kV according to patient size, use of iterative reconstruction technique) 2010 [employer]- All Rights Reserved Assessment & Plan - Diagnosis (1) Obesity hypoventilation syndrome Is this a current diagnosis for this admission?: Yes Plan: Suspect patient will need a trilogy prior to discharge (2) Acute and chronic respiratory failure ([id number]) Qualifiers: Respiratory failure complication: hypoxia and hypercapnia Qualified Code(s) : J96.21 - Acute and chronic respiratory failure with hypoxia; J96.22 - Acute and chronic respiratory failure with hypercapnia; J96.22 - Acute and chronic respiratory failure with hypercapnia; J96.22 - Acute and chronic respiratory failure with hypercapnia Is this a current diagnosis for this admission?: Yes Plan: BiPAP congested BiPAP as needed (3) Acute respiratory failure with hypoxia and hypercapnia Is this a current diagnosis for this admission?: Yes (4) Moderate to severe pulmonary hypertension Is this a current diagnosis for this admission?: Yes Plan: At some point patient will need right heart cath to confirm (5) Morbid (severe) obesity due to excess calories Is this a current diagnosis for this admission?: Yes (6) Sleep apnea Qualifiers: Sleep apnea type: unspecified type Qualified Code(s): G47.30 - Sleep apnea , unspecified Is this a current diagnosis for this admission?: Yes
[2017-11-18 14:58] LABS: FREE T3 2.48 pg/mL (2.77-5.27); FREE T4 (FREE THYROXINE) 1.16 ng/dL (0.78-2.19)
[2017-11-18 15:12] LABS: THYROID STIMULATING HORMONE 2.46 uIU/mL (0.47-4.68)
--- NOTE | 2017-11-18 15:44 | PDOC PROGRESS REPORT ---
Subjective Progress Note for:: 11/18/17 Subjective:: No acute event overnight. She denies SOB or chest pain. No somnolence or confusion despite severely elevated PCO2. No cough, fever or chills. Patient had a 6 minute walk test yesterday and she desaturated to 60%. No acute event overnight. She was on BIPAP overnight. Currently comfortable and saturating well on nasal cannula while eating breakfast. Reason For Visit: ACUTE RESPIRATORY FAILURE,SEVERE PULMONARY Physical Exam Vital Signs: Temp Pulse Resp BP Pulse Ox 98.0 F 89 16 131/72 H 95 11/18/17 11:24 11/18/17 14:00 11/18/17 12:13 11/18/17 11:24 11/18/17 12:13 Intake & Output 11/17/17 11/18/17 11/19/17 06:59 06:59 06:59 Intake Total 476 1562 752 Output Total 600 300 Balance 476 962 452 Weight 352 lb 11.834 oz 354 lb 15.108 oz General appearance: PRESENT: no acute distress, morbidly obese Head exam: PRESENT: atraumatic, normocephalic Eye exam: PRESENT: conjunctiva pink, EOMI, PERRLA. ABSENT: scleral icterus Ear exam: PRESENT: normal external ear exam Neck exam: ABSENT: carotid bruit, JVD, lymphadenopathy, thyromegaly Respiratory exam: PRESENT: clear to auscultation marcelino. ABSENT: rales, rhonchi, wheezes Cardiovascular exam: PRESENT: RRR. ABSENT: diastolic murmur, rubs, systolic murmur Pulses: PRESENT: normal dorsalis pedis pul Vascular exam: PRESENT: normal capillary refill GI/Abdominal exam: PRESENT: normal bowel sounds, soft. ABSENT: distended, guarding, mass, organolmegaly, rebound, tenderness Rectal exam: PRESENT: deferred Psychiatric exam: PRESENT: appropriate affect, normal mood. ABSENT: homicidal ideation, suicidal ideation Skin exam: PRESENT: dry, intact, warm. ABSENT: cyanosis, rash Results Laboratory Results: 11/17/17 04:27 11/18/17 14:00 TSH 2.46 Free T4 1.16 Free T3 pg/mL 2.48 L Impressions: Chest X-Ray 11/14/17 23:31 IMPRESSION: There is no acute pleural-parenchymal process seen in the imaged lung smiley. Location of Interpretation: [facility] Chest/Abdomen CTA 11/15/17 01:39 IMPRESSION: No evidence of acute PE TECHNICAL DOCUMENTATION: Quality ID # [id number]: Final reports with documentation of one or more dose reduction techniques (e.g., Automated exposure control, adjustment of the mA and/or kV according to patient size, use of iterative reconstruction technique) 2010 [employer]- All Rights Reserved Assessment & Plan - Diagnosis (1) Acute and chronic respiratory failure ([id number]) Qualifiers: Respiratory failure complication: hypoxia and hypercapnia Qualified Code(s) : J96.21 - Acute and chronic respiratory failure with hypoxia; J96.22 - Acute and chronic respiratory failure with hypercapnia; J96.22 - Acute and chronic respiratory failure with hypercapnia; J96.22 - Acute and chronic respiratory failure with hypercapnia Is this a current diagnosis for this admission?: Yes Plan: This is acute on chronic hypoxic and hypercapnic respiratory failure. Patient initially came with hypoxia. ABG also did show significant hypercarbia. Patient has a long standing history of sleep apnea with no CPAP use due to her claustrophobia. ABG even on BiPAP still showed persistently and severely elevated PCO2. She did a 6 minute walk test yesterday and patient desaturated to 65% while walking on room air. ABG is consistent with chronic hypercarbia. Pulmonology following and recommended Trilogy ventilator upon discharge. Patient will also need to go on home O2 because of 6 minute walk test result. Awaiting for insurance approval of Trilogy. (2) Severe pulmonary arterial systolic hypertension Is this a current diagnosis for this admission?: Yes Plan: Echo shows an RSVP of 50-70. CTA chest was negative for PE. The patient has long -standing sleep apnea and possible obesity related hypoventilation syndrome. However, the extent and the severity of pulmonary hypertension warrants further workup for possible primary pulmonary artery hypertension. Patient will need to follow up with pulm and/or pulmo HTN clinic on outpatient basis. Please set up patient with outpatient follow-up with Dr. Caicedo (cardio) as Dr. Caicedo did say that he can hook the patient up with a pulmonary hypertension clinic on outpatient basis. (3) Right heart failure due to pulmonary hypertension Is this a current diagnosis for this admission?: Yes Plan: Patient has peripheral edema. She does not have other clinical or radiologic signs of congestion. Patient likely has possible right-sided heart failure secondary to severe pulmonary hypertension. On lasix PO. (4) Asthma exacerbation Is this a current diagnosis for this admission?: Yes Plan: Resolved. Although, the patient was noted to have a few wheezes upon admission, she denies prior diagnosis of asthma in the past. She does not use home inhalers. Continue breathing treatments prn. Decrease prednisone to 20 mg daily. - Time Time Spent with patient: 25-34 minutes
[2017-11-18] MEDS: ACETAMINOPHEN 325 MG TABLET PO PRN (20:41)
[2017-11-19] MEDS: IPRATROPIUM/ALBUTEROL 0.5-2.5 MG/3 ML AMPUL NEB SCH ×7 (00:26→23:39)
[2017-11-19 10:51] LABS: ABSOLUTE EOSINOPHILS # (AUTO) 0.2 10^3/uL (0.0-0.6); ABSOLUTE LYMPHOCYTES (AUTO) 1.9 10^3/uL (0.5-4.7); ABSOLUTE MONOCYTES (AUTO) 1.1 10^3/uL (0.1-1.4); ABSOLUTE NEUT (AUTO) 4.9 10^3/uL (1.7-8.2); BASOPHILS % (AUTO) 0.6 % (0-2); EOSINOPHILS % (AUTO) 1.9 % (0-6); HEMATOCRIT 40.1 % (36.0-47.0); HEMOGLOBIN 12.1 g/dL (12.0-15.5); LYMPHOCYTES % (AUTO) 22.9 % (13-45); MEAN CORPUSCULAR HEMOGLOBIN 22.7 pg (27.0-33.4); MEAN CORPUSCULAR HGB CONC 30.1 g/dL (32.0-36.0); MEAN CORPUSCULAR VOLUME 75 fl (80-97); MONOCYTES % (AUTO) 13.4 % (3-13); PLATELET COUNT 264 10^3/uL (150-450); RED BLOOD COUNT 5.32 10^6/uL (3.72-5.28); RED CELL DISTRIBUTION WIDTH 18.1 % (11.5-14.0); SEGMENTED NEUTROPHILS % (AUTO) 61.2 % (42-78); TOTAL CELLS COUNTED % (AUTO) 100 %; WHITE BLOOD COUNT 8.1 10^3/uL (4.0-10.5)
[2017-11-19] MEDS: FUROSEMIDE 20 MG TABLET PO SCH (10:58)
[2017-11-19] MEDS: PREDNISONE 20 MG TABLET PO SCH (10:58)
[2017-11-19] MEDS: ENOXAPARIN SODIUM INJ 40 MG/0.4 ML DISP.SYRIN SUBCUT SCH (10:58)
[2017-11-19 11:07] LABS: ARTERIAL BLOOD BASE EXCESS 17.2 mmol/L; ARTERIAL BLOOD H2CO3 2.65 mmol/L (1.05-1.35); ARTERIAL BLOOD HCO3 47.2 mmol/L (20-26); ARTERIAL BLOOD O2 SATURATION 94.6 % (94-98); ARTERIAL BLOOD PH 7.35 (7.35-7.45); ARTERIAL BLOOD PO2 80.8 mmHg (80-100); ARTERIAL BLOOD TOTAL CO2 49.9 mmol/L (21-25)
[2017-11-19 11:08] LABS: ARTERIAL BLOOD FIO2 2L
[2017-11-19 11:11] LABS: ARTERIAL BLOOD PCO2 88.2 mmHg (35-45)
[2017-11-19 11:17] LABS: ALANINE AMINOTRANSFERASE 20 U/L (9-52); ALKALINE PHOSPHATASE 81 U/L (38-126); ASPARTATE AMINO TRANSFERASE 17 U/L (14-36); BILIRUBIN,DIRECT 0.3 mg/dL (0.0-0.4); BILIRUBIN,TOTAL 0.7 mg/dL (0.2-1.3); BLOOD UREA NITROGEN 33 mg/dL (7-20); CALCIUM 8.8 mg/dL (8.4-10.2); CHLORIDE 89 mmol/L (98-107); CREATINE KINASE 52 U/L (30-135); GLUCOSE 116 mg/dL (75-110); PHOSPHORUS 3.5 mg/dL (2.5-4.5); POTASSIUM 4.3 mmol/L (3.6-5.0); SODIUM 140.4 mmol/L (137-145); TOTAL PROTEIN 8.5 g/dL (6.3-8.2)
[2017-11-19 11:23] LABS: ANION GAP 11 (5-19)
[2017-11-19 11:26] LABS: CARBON DIOXIDE 40 mmol/L (22-30)
--- NOTE | 2017-11-19 11:27 | PDOC PROGRESS REPORT ---
Subjective Progress Note for:: 11/18/17 Subjective:: I feel a little better Reason For Visit: ACUTE RESPIRATORY FAILURE,SEVERE PULMONARY Physical Exam Vital Signs: Temp Pulse Resp BP Pulse Ox 97.8 F 63 23 H 140/80 H 99 11/18/17 03:01 11/18/17 07:00 11/18/17 03:28 11/18/17 03:01 11/18/17 03:28 Intake & Output 11/17/17 11/18/17 11/19/17 06:59 06:59 06:59 Intake Total 476 1562 Output Total 600 Balance 476 962 Weight 160 kg 161 kg General appearance: PRESENT: no acute distress, cooperative, disheveled, morbidly obese Head exam: PRESENT: atraumatic, normocephalic Eye exam: PRESENT: conjunctiva pale, EOMI, PERRLA. ABSENT: nystagmus, periorbital swelling, scleral icterus Mouth exam: PRESENT: dry mucosa, neck supple, tongue midline Neck exam: ABSENT: carotid bruit, JVD, lymphadenopathy, thyromegaly, tracheal deviation, tracheostomy Cardiovascular exam: PRESENT: RRR, +S1, +S2 Pulses: PRESENT: normal radial pulses GI/Abdominal exam: PRESENT: normal bowel sounds, soft Gentrourinary exam: PRESENT: indwelling catheter Extremities exam: PRESENT: full ROM. ABSENT: calf tenderness, clubbing, joint swelling Musculoskeletal exam: PRESENT: full ROM. ABSENT: deformity, dislocation Neurological exam: PRESENT: awake Psychiatric exam: PRESENT: flat affect Skin exam: PRESENT: dry, warm Results Laboratory Results: 11/17/17 04:27 Impressions: Chest X-Ray 11/14/17 23:31 IMPRESSION: There is no acute pleural-parenchymal process seen in the imaged lung smiley. Location of Interpretation: [facility] Chest/Abdomen CTA 11/15/17 01:39 IMPRESSION: No evidence of acute PE TECHNICAL DOCUMENTATION: Quality ID # [id number]: Final reports with documentation of one or more dose reduction techniques (e.g., Automated exposure control, adjustment of the mA and/or kV according to patient size, use of iterative reconstruction technique) 2010 [employer]- All Rights Reserved Assessment & Plan - Diagnosis (1) Obesity hypoventilation syndrome Is this a current diagnosis for this admission?: Yes Plan: patient will need a trilogy prior to discharge The above patient has failed BiPAP. This patient would benefit from noninvasive mechanical ventilation via the trilogy AVAPS/AE and faster responding AVAPS rates. The trilogy is able to provide a target tidal volume and also adjusting the EPAP pressures to maintain a patent airway as well as an oral backup rate this machine will help improve PaCO2 levels. The severity of the patient's condition will lead to future hospitalizations and readmissions as well as life-threatening situations without the use of this device trilogy home vent needed for hypercapnic respiratory failure. [facility]. (2) Acute and chronic respiratory failure ([id number]) Qualifiers: Respiratory failure complication: hypoxia and hypercapnia Qualified Code(s) : J96.21 - Acute and chronic respiratory failure with hypoxia; J96.22 - Acute and chronic respiratory failure with hypercapnia; J96.22 - Acute and chronic respiratory failure with hypercapnia; J96.22 - Acute and chronic respiratory failure with hypercapnia Is this a current diagnosis for this admission?: Yes Plan: BiPAP As tolerated (3) Moderate to severe pulmonary hypertension Is this a current diagnosis for this admission?: Yes Plan: At some point patient will need right heart cath to confirm (4) Morbid (severe) obesity due to excess calories Is this a current diagnosis for this admission?: Yes (5) Sleep apnea Qualifiers: Sleep apnea type: unspecified type Qualified Code(s): G47.30 - Sleep apnea , unspecified Is this a current diagnosis for this admission?: Yes Plan: Schedule nocturnal polysomnogram at the time of discharge
--- NOTE | 2017-11-19 11:31 | PDOC PROGRESS REPORT ---
Subjective Progress Note for:: 11/19/17 Subjective:: I am better Reason For Visit: ACUTE RESPIRATORY FAILURE,SEVERE PULMONARY Physical Exam Vital Signs: Temp Pulse Resp BP Pulse Ox 97.9 F 81 18 113/59 L 97 11/19/17 08:40 11/19/17 08:40 11/19/17 08:40 11/19/17 08:40 11/19/17 08:40 Intake & Output 11/18/17 11/19/17 11/20/17 06:59 06:59 06:59 Intake Total 1562 1427 Output Total 600 400 Balance 962 1027 Weight 161 kg 157.3 kg General appearance: PRESENT: no acute distress, cooperative, disheveled, morbidly obese Head exam: PRESENT: atraumatic, normocephalic Eye exam: PRESENT: conjunctiva pale, EOMI. ABSENT: nystagmus, periorbital swelling, scleral icterus Mouth exam: PRESENT: moist, neck supple, tongue midline, other - [place] 4 Neck exam: ABSENT: carotid bruit, JVD, lymphadenopathy, thyromegaly, tracheal deviation, tracheostomy Respiratory exam: PRESENT: decreased breath sounds, prolonged expiratory phas, rhonchi, unlabored Cardiovascular exam: PRESENT: RRR, +S1, +S2 Pulses: PRESENT: normal radial pulses GI/Abdominal exam: PRESENT: normal bowel sounds, soft Extremities exam: ABSENT: calf tenderness, clubbing, joint swelling, pedal edema Musculoskeletal exam: ABSENT: deformity, dislocation Neurological exam: PRESENT: awake Psychiatric exam: PRESENT: flat affect Skin exam: PRESENT: dry, warm Results Laboratory Results: 11/19/17 10:22 11/19/17 10:22 11/18/17 11/19/17 11/19/17 14:00 10:22 10:22 WBC 8.1 RBC 5.32 H Hgb 12.1 Hct 40.1 MCV 75 L MCH 22.7 L MCHC 30.1 L RDW 18.1 H Plt Count 264 Seg Neutrophils % 61.2 Lymphocytes % 22.9 Monocytes % 13.4 H Eosinophils % 1.9 Basophils % 0.6 Absolute Neutrophils 4.9 Absolute Lymphocytes 1.9 Absolute Monocytes 1.1 Absolute Eosinophils 0.2 Absolute Basophils 0.0 Carbonic Acid HCO3/H2CO3 Ratio ABG pH ABG pCO2 ABG pO2 ABG HCO3 ABG O2 Saturation ABG Base Excess FiO2 Sodium 140.4 Potassium 4.3 Chloride 89 L Carbon Dioxide 40 H* Anion Gap 11 BUN 33 H Creatinine 0.99 Est GFR ( Amer) > 60 Est GFR (Non-Af Amer) > 60 Glucose 116 H Calcium 8.8 Phosphorus 3.5 Magnesium 2.6 H Total Bilirubin 0.7 AST 17 ALT 20 Alkaline Phosphatase 81 Total Protein 8.5 H Albumin 4.0 TSH 2.46 Free T4 1.16 Free T3 pg/mL 2.48 L 11/19/17 10:40 WBC RBC Hgb Hct MCV MCH MCHC RDW Plt Count Seg Neutrophils % Lymphocytes % Monocytes % Eosinophils % Basophils % Absolute Neutrophils Absolute Lymphocytes Absolute Monocytes Absolute Eosinophils Absolute Basophils Carbonic Acid 2.65 H HCO3/H2CO3 Ratio 17:1 ABG pH 7.35 ABG pCO2 88.2 H* ABG pO2 80.8 ABG HCO3 47.2 H ABG O2 Saturation 94.6 ABG Base Excess 17.2 FiO2 2L Sodium Potassium Chloride Carbon Dioxide Anion Gap BUN Creatinine Est GFR ( Amer) Est GFR (Non-Af Amer) Glucose Calcium Phosphorus Magnesium Total Bilirubin AST ALT Alkaline Phosphatase Total Protein Albumin TSH Free T4 Free T3 pg/mL 11/19/17 10:22 Creatine Kinase 52 Impressions: Chest X-Ray 11/14/17 23:31 IMPRESSION: There is no acute pleural-parenchymal process seen in the imaged lung smiley. Location of Interpretation: [facility] Chest/Abdomen CTA 11/15/17 01:39 IMPRESSION: No evidence of acute PE TECHNICAL DOCUMENTATION: Quality ID # [id number]: Final reports with documentation of one or more dose reduction techniques (e.g., Automated exposure control, adjustment of the mA and/or kV according to patient size, use of iterative reconstruction technique) 2010 [employer]- All Rights Reserved Assessment & Plan - Diagnosis (1) Obesity hypoventilation syndrome Is this a current diagnosis for this admission?: Yes Plan: patient will need a trilogy prior to discharge The above patient has failed BiPAP. This patient would benefit from noninvasive mechanical ventilation via the trilogy AVAPS/AE and faster responding AVAPS rates. The trilogy is able to provide a target tidal volume and also adjusting the EPAP pressures to maintain a patent airway as well as an oral backup rate this machine will help improve PaCO2 levels. The severity of the patient's condition will lead to future hospitalizations and readmissions as well as life-threatening situations without the use of this device trilogy home vent needed for hypercapnic respiratory failure. [facility] or [facility] to follow for trilogy set up. (2) Acute and chronic respiratory failure ([id number]) Qualifiers: Respiratory failure complication: hypoxia and hypercapnia Qualified Code(s) : J96.21 - Acute and chronic respiratory failure with hypoxia; J96.22 - Acute and chronic respiratory failure with hypercapnia; J96.22 - Acute and chronic respiratory failure with hypercapnia; J96.22 - Acute and chronic respiratory failure with hypercapnia Is this a current diagnosis for this admission?: Yes Plan: BiPAP As tolerated (3) Moderate to severe pulmonary hypertension Is this a current diagnosis for this admission?: Yes Plan: At some point patient will need right heart cath to confirm (4) Morbid (severe) obesity due to excess calories Is this a current diagnosis for this admission?: Yes (5) Sleep apnea Qualifiers: Sleep apnea type: unspecified type Qualified Code(s): G47.30 - Sleep apnea , unspecified Is this a current diagnosis for this admission?: Yes Plan: Schedule nocturnal polysomnogram at the time of discharge
--- NOTE | 2017-11-19 17:51 | PDOC PROGRESS REPORT ---
Subjective Progress Note for:: 11/19/17 Subjective:: Pt is a 46 y/o obese AAF admitted for hypercarbic hypoxic acute on chronic respiratory failure. Pt is alert and awake and doing better. Pulmonology following pt and needs trilogy machine for d/c planning. no complaints today. Reason For Visit: ACUTE RESPIRATORY FAILURE,SEVERE PULMONARY Physical Exam Vital Signs: Temp Pulse Resp BP Pulse Ox 98.1 F 88 18 153/71 H 98 11/19/17 16:39 11/19/17 16:39 11/19/17 16:39 11/19/17 16:39 11/19/17 16:39 Intake & Output 11/18/17 11/19/17 11/20/17 06:59 06:59 06:59 Intake Total 1562 1427 1460 Output Total 600 400 500 Balance 962 1027 960 Weight 354 lb 15.108 oz 346 lb 12.594 oz General appearance: PRESENT: no acute distress, cooperative Eye exam: PRESENT: EOMI Respiratory exam: PRESENT: clear to auscultation marcelino Cardiovascular exam: PRESENT: RRR GI/Abdominal exam: PRESENT: soft. ABSENT: tenderness Neurological exam: PRESENT: alert, awake Results Laboratory Results: 11/19/17 10:22 11/19/17 10:22 11/19/17 11/19/17 11/19/17 10:22 10:22 10:40 WBC 8.1 RBC 5.32 H Hgb 12.1 Hct 40.1 MCV 75 L MCH 22.7 L MCHC 30.1 L RDW 18.1 H Plt Count 264 Seg Neutrophils % 61.2 Lymphocytes % 22.9 Monocytes % 13.4 H Eosinophils % 1.9 Basophils % 0.6 Absolute Neutrophils 4.9 Absolute Lymphocytes 1.9 Absolute Monocytes 1.1 Absolute Eosinophils 0.2 Absolute Basophils 0.0 Carbonic Acid 2.65 H HCO3/H2CO3 Ratio 17:1 ABG pH 7.35 ABG pCO2 88.2 H* ABG pO2 80.8 ABG HCO3 47.2 H ABG O2 Saturation 94.6 ABG Base Excess 17.2 FiO2 2L Sodium 140.4 Potassium 4.3 Chloride 89 L Carbon Dioxide 40 H* Anion Gap 11 BUN 33 H Creatinine 0.99 Est GFR ( Amer) > 60 Est GFR (Non-Af Amer) > 60 Glucose 116 H Calcium 8.8 Phosphorus 3.5 Magnesium 2.6 H Total Bilirubin 0.7 AST 17 ALT 20 Alkaline Phosphatase 81 Total Protein 8.5 H Albumin 4.0 11/19/17 10:22 Creatine Kinase 52 Impressions: Chest X-Ray 11/14/17 23:31 IMPRESSION: There is no acute pleural-parenchymal process seen in the imaged lung smiley. Location of Interpretation: [facility]iology Chest/Abdomen CTA 11/15/17 01:39 IMPRESSION: No evidence of acute PE TECHNICAL DOCUMENTATION: Quality ID # [id number]: Final reports with documentation of one or more dose reduction techniques (e.g., Automated exposure control, adjustment of the mA and/or kV according to patient size, use of iterative reconstruction technique) 2010 [employer]- All Rights Reserved Assessment & Plan - Diagnosis (1) Acute and chronic respiratory failure ([id number]) Qualifiers: Respiratory failure complication: hypoxia and hypercapnia Qualified Code(s) : J96.21 - Acute and chronic respiratory failure with hypoxia; J96.22 - Acute and chronic respiratory failure with hypercapnia; J96.22 - Acute and chronic respiratory failure with hypercapnia; J96.22 - Acute and chronic respiratory failure with hypercapnia Is this a current diagnosis for this admission?: Yes
[2017-11-19] MEDS: ACETAMINOPHEN 325 MG TABLET PO PRN (20:58)
[2017-11-20] MEDS: IPRATROPIUM/ALBUTEROL 0.5-2.5 MG/3 ML AMPUL NEB SCH ×5 (04:13→19:29)
[2017-11-20 05:36] LABS: ABSOLUTE EOSINOPHILS # (AUTO) 0.1 10^3/uL (0.0-0.6); ABSOLUTE LYMPHOCYTES (AUTO) 1.5 10^3/uL (0.5-4.7); ABSOLUTE MONOCYTES (AUTO) 1.1 10^3/uL (0.1-1.4); ABSOLUTE NEUT (AUTO) 5.4 10^3/uL (1.7-8.2); BASOPHILS % (AUTO) 0.4 % (0-2); EOSINOPHILS % (AUTO) 1.8 % (0-6); HEMATOCRIT 37.9 % (36.0-47.0); HEMOGLOBIN 11.8 g/dL (12.0-15.5); LYMPHOCYTES % (AUTO) 18.1 % (13-45); MEAN CORPUSCULAR HEMOGLOBIN 23.4 pg (27.0-33.4); MEAN CORPUSCULAR HGB CONC 31.1 g/dL (32.0-36.0); MEAN CORPUSCULAR VOLUME 75 fl (80-97); MONOCYTES % (AUTO) 13.4 % (3-13); PLATELET COUNT 272 10^3/uL (150-450); RED BLOOD COUNT 5.04 10^6/uL (3.72-5.28); RED CELL DISTRIBUTION WIDTH 17.7 % (11.5-14.0); SEGMENTED NEUTROPHILS % (AUTO) 66.3 % (42-78); TOTAL CELLS COUNTED % (AUTO) 100 %; WHITE BLOOD COUNT 8.1 10^3/uL (4.0-10.5)
[2017-11-20 06:06] LABS: ALANINE AMINOTRANSFERASE 21 U/L (9-52); ALBUMIN 3.7 g/dL (3.5-5.0); ALKALINE PHOSPHATASE 80 U/L (38-126); ASPARTATE AMINO TRANSFERASE 17 U/L (14-36); BILIRUBIN,DIRECT 0.3 mg/dL (0.0-0.4); BILIRUBIN,TOTAL 0.6 mg/dL (0.2-1.3); BLOOD UREA NITROGEN 29 mg/dL (7-20); CALCIUM 8.6 mg/dL (8.4-10.2); CHLORIDE 90 mmol/L (98-107); GLUCOSE 91 mg/dL (75-110); PHOSPHORUS 4.5 mg/dL (2.5-4.5); POTASSIUM 4.8 mmol/L (3.6-5.0); SODIUM 139.3 mmol/L (137-145); TOTAL PROTEIN 7.7 g/dL (6.3-8.2)
[2017-11-20 06:23] LABS: ANION GAP 5 (5-19)
[2017-11-20 06:24] LABS: CARBON DIOXIDE 44 mmol/L (22-30)
[2017-11-20] MEDS: PREDNISONE 20 MG TABLET PO SCH (10:42)
[2017-11-20] MEDS: FUROSEMIDE 20 MG TABLET PO SCH (10:42)
[2017-11-20] MEDS: ENOXAPARIN SODIUM INJ 40 MG/0.4 ML DISP.SYRIN SUBCUT SCH (10:42)
[2017-11-20 11:21] LABS: ARTERIAL BLOOD BASE EXCESS 13.4 mmol/L; ARTERIAL BLOOD H2CO3 2.42 mmol/L (1.05-1.35); ARTERIAL BLOOD HCO3 42.7 mmol/L (20-26); ARTERIAL BLOOD O2 SATURATION 94.3 % (94-98); ARTERIAL BLOOD PH 7.34 (7.35-7.45); ARTERIAL BLOOD PO2 78.6 mmHg (80-100); ARTERIAL BLOOD TOTAL CO2 45.1 mmol/L (21-25)
[2017-11-20 11:24] LABS: ARTERIAL BLOOD FIO2 2L
[2017-11-20 11:31] LABS: ARTERIAL BLOOD PCO2 80.5 mmHg (35-45)
--- NOTE | 2017-11-20 11:31 | PDOC PROGRESS REPORT ---
Subjective Progress Note for:: 11/20/17 Subjective:: I am better Reason For Visit: ACUTE RESPIRATORY FAILURE,SEVERE PULMONARY Physical Exam Vital Signs: Temp Pulse Resp BP Pulse Ox 98.3 F 79 18 111/63 96 11/20/17 07:48 11/20/17 09:01 11/20/17 09:01 11/20/17 07:48 11/20/17 09:01 Intake & Output 11/19/17 11/20/17 11/21/17 06:59 06:59 06:59 Intake Total 1427 1460 Output Total 400 750 Balance 1027 710 Weight 157.3 kg 155.9 kg General appearance: PRESENT: no acute distress, cooperative, disheveled, morbidly obese Head exam: PRESENT: atraumatic, normocephalic Eye exam: PRESENT: conjunctiva pale, EOMI. ABSENT: nystagmus, periorbital swelling, scleral icterus Mouth exam: PRESENT: dry mucosa, neck supple, tongue midline Neck exam: ABSENT: carotid bruit, JVD, lymphadenopathy, thyromegaly, tracheal deviation, tracheostomy Respiratory exam: PRESENT: decreased breath sounds, rhonchi, unlabored. ABSENT : stridor, tachypnea Cardiovascular exam: PRESENT: RRR, +S1, +S2 Pulses: PRESENT: normal radial pulses GI/Abdominal exam: PRESENT: normal bowel sounds, soft Extremities exam: PRESENT: full ROM. ABSENT: calf tenderness, clubbing Musculoskeletal exam: PRESENT: full ROM. ABSENT: deformity, dislocation Neurological exam: PRESENT: alert, awake Psychiatric exam: PRESENT: normal mood Skin exam: PRESENT: dry, warm Results Laboratory Results: 11/20/17 04:59 11/20/17 04:59 11/20/17 11/20/17 04:59 04:59 WBC 8.1 RBC 5.04 Hgb 11.8 L Hct 37.9 MCV 75 L MCH 23.4 L MCHC 31.1 L RDW 17.7 H Plt Count 272 Seg Neutrophils % 66.3 Lymphocytes % 18.1 Monocytes % 13.4 H Eosinophils % 1.8 Basophils % 0.4 Absolute Neutrophils 5.4 Absolute Lymphocytes 1.5 Absolute Monocytes 1.1 Absolute Eosinophils 0.1 Absolute Basophils 0.0 Sodium 139.3 Potassium 4.8 Chloride 90 L Carbon Dioxide 44 H* Anion Gap 5 BUN 29 H Creatinine 0.87 Est GFR ( Amer) > 60 Est GFR (Non-Af Amer) > 60 Glucose 91 Calcium 8.6 Phosphorus 4.5 Magnesium 2.8 H Total Bilirubin 0.6 AST 17 ALT 21 Alkaline Phosphatase 80 Total Protein 7.7 Albumin 3.7 11/19/17 10:22 Creatine Kinase 52 Impressions: Chest X-Ray 11/14/17 23:31 IMPRESSION: There is no acute pleural-parenchymal process seen in the imaged lung smiley. Location of Interpretation: Teleradiology Chest/Abdomen CTA 11/15/17 01:39 IMPRESSION: No evidence of acute PE TECHNICAL DOCUMENTATION: Quality ID # [id number]: Final reports with documentation of one or more dose reduction techniques (e.g., Automated exposure control, adjustment of the mA and/or kV according to patient size, use of iterative reconstruction technique) 2010 [employer]- All Rights Reserved Assessment & Plan - Diagnosis (1) Obesity hypoventilation syndrome Is this a current diagnosis for this admission?: Yes Plan: patient will need a trilogy prior to discharge The above patient has failed BiPAP. This patient would benefit from noninvasive mechanical ventilation via the trilogy AVAPS/AE and faster responding AVAPS rates. The trilogy is able to provide a target tidal volume and also adjusting the EPAP pressures to maintain a patent airway as well as an oral backup rate this machine will help improve PaCO2 levels. The severity of the patient's condition will lead to future hospitalizations and readmissions as well as life-threatening situations without the use of this device trilogy home vent needed for hypercapnic respiratory failure. [facility] or [facility] to follow for trilogy set up. (2) Acute and chronic respiratory failure ([id number]) Qualifiers: Respiratory failure complication: hypoxia and hypercapnia Qualified Code(s) : J96.21 - Acute and chronic respiratory failure with hypoxia; J96.22 - Acute and chronic respiratory failure with hypercapnia; J96.22 - Acute and chronic respiratory failure with hypercapnia; J96.22 - Acute and chronic respiratory failure with hypercapnia Is this a current diagnosis for this admission?: Yes Plan: Failed BiPAP (3) Moderate to severe pulmonary hypertension Is this a current diagnosis for this admission?: Yes Plan: At some point patient will need right heart cath to confirm (4) Morbid (severe) obesity due to excess calories Is this a current diagnosis for this admission?: Yes (5) Sleep apnea Qualifiers: Sleep apnea type: unspecified type Qualified Code(s): G47.30 - Sleep apnea , unspecified Is this a current diagnosis for this admission?: Yes Plan: Schedule nocturnal polysomnogram at the time of discharge
[2017-11-20 11:37] LABS: APPEARANCE,URINE CLEAR; BILIRUBIN,URINE NEGATIVE (NEGATIVE); COLOR,URINE YELLOW; GLUCOSE, URINE NEGATIVE (NEGATIVE); KETONES,URINE NEGATIVE (NEGATIVE); LEUKOCYTE ESTERASE,URINE NEGATIVE (NEGATIVE); NITRITE,URINE NEGATIVE (NEGATIVE); PROTEIN,URINE NEGATIVE (NEGATIVE); URINE SPECIFIC GRAVITY 1.015; UROBILINOGEN,URINE NEGATIVE mg/dL (<2.0)
--- NOTE | 2017-11-20 16:50 | PDOC PROGRESS REPORT ---
Subjective Progress Note for:: 11/20/17 Subjective:: pt seen today for f/u of her admission for sob and [place]. Patient has pickwickian syndrome. Patient sees Dr. Hernandez.Device patient is seen travel clerk for management of this and has been approved for a trilogy. Patient has been improving slowly answering questions appropriately denies any concerns today. Patient concerns about getting Medicaid being approved for Medicaid and disability as she cannot work. ABG and labs are improving. Case has been discussed with travel clerk who also agrees plan of discharge. Anticipate discharge in the morning tomorrow. Patient is advised to establish primary care, keep follow-up appointment with travel clerk, Patient also needs to establish herself with a water conservation specialist. Discharge for tomorrow in the morning. She does not feel comfortable leaving today. Reason For Visit: ACUTE RESPIRATORY FAILURE,SEVERE PULMONARY Physical Exam Vital Signs: Temp Pulse Resp BP Pulse Ox 98.3 F 86 18 139/75 H 96 11/20/17 11:45 11/20/17 13:07 11/20/17 12:10 11/20/17 11:45 11/20/17 12:10 Intake & Output 11/19/17 11/20/17 11/21/17 06:59 06:59 06:59 Intake Total 1427 1460 236 Output Total 400 750 600 Balance 1027 710 -364 Weight 346 lb 12.594 oz 343 lb 11.21 oz General appearance: PRESENT: cooperative, morbidly obese Respiratory exam: PRESENT: clear to auscultation marcelino Cardiovascular exam: PRESENT: RRR GI/Abdominal exam: PRESENT: soft. ABSENT: distended, tenderness Results Laboratory Results: 11/20/17 04:59 11/20/17 04:59 11/20/17 11/20/17 11/20/17 04:59 04:59 10:00 WBC 8.1 RBC 5.04 Hgb 11.8 L Hct 37.9 MCV 75 L MCH 23.4 L MCHC 31.1 L RDW 17.7 H Plt Count 272 Seg Neutrophils % 66.3 Lymphocytes % 18.1 Monocytes % 13.4 H Eosinophils % 1.8 Basophils % 0.4 Absolute Neutrophils 5.4 Absolute Lymphocytes 1.5 Absolute Monocytes 1.1 Absolute Eosinophils 0.1 Absolute Basophils 0.0 Carbonic Acid HCO3/H2CO3 Ratio ABG pH ABG pCO2 ABG pO2 ABG HCO3 ABG O2 Saturation ABG Base Excess FiO2 Sodium 139.3 Potassium 4.8 Chloride 90 L Carbon Dioxide 44 H* Anion Gap 5 BUN 29 H Creatinine 0.87 Est GFR ( Amer) > 60 Est GFR (Non-Af Amer) > 60 Glucose 91 Calcium 8.6 Phosphorus 4.5 Magnesium 2.8 H Total Bilirubin 0.6 AST 17 ALT 21 Alkaline Phosphatase 80 Total Protein 7.7 Albumin 3.7 Urine Color YELLOW Urine Appearance CLEAR Urine pH 8.0 Ur Specific [place] 1.015 Urine Protein NEGATIVE Urine Glucose (UA) NEGATIVE Urine Ketones NEGATIVE Urine Blood NEGATIVE Urine Nitrite NEGATIVE Ur Leukocyte Esterase NEGATIVE Urine WBC (Auto) 0 Urine RBC (Auto) 0 11/20/17 10:21 WBC RBC Hgb Hct MCV MCH MCHC RDW Plt Count Seg Neutrophils % Lymphocytes % Monocytes % Eosinophils % Basophils % Absolute Neutrophils Absolute Lymphocytes Absolute Monocytes Absolute Eosinophils Absolute Basophils Carbonic Acid 2.42 H HCO3/H2CO3 Ratio 17:1 ABG pH 7.34 L ABG pCO2 80.5 H* ABG pO2 78.6 L ABG HCO3 42.7 H ABG O2 Saturation 94.3 ABG Base Excess 13.4 FiO2 2L Sodium Potassium Chloride Carbon Dioxide Anion Gap BUN Creatinine Est GFR ( Amer) Est GFR (Non-Af Amer) Glucose Calcium Phosphorus Magnesium Total Bilirubin AST ALT Alkaline Phosphatase Total Protein Albumin Urine Color Urine Appearance Urine pH Ur Specific [place] Urine Protein Urine Glucose (UA) Urine Ketones Urine Blood Urine Nitrite Ur Leukocyte Esterase Urine WBC (Auto) Urine RBC (Auto) 11/19/17 10:22 Creatine Kinase 52 Impressions: Chest X-Ray 11/14/17 23:31 IMPRESSION: There is no acute pleural-parenchymal process seen in the imaged lung smiley. Location of Interpretation: Teleradiology Chest/Abdomen CTA 11/15/17 01:39 IMPRESSION: No evidence of acute PE TECHNICAL DOCUMENTATION: Quality ID # [id number]: Final reports with documentation of one or more dose reduction techniques (e.g., Automated exposure control, adjustment of the mA and/or kV according to patient size, use of iterative reconstruction technique) 2010 [employer]- All Rights Reserved Assessment & Plan - Diagnosis (1) Acute and chronic respiratory failure ([id number]) Qualifiers: Respiratory failure complication: hypoxia and hypercapnia Qualified Code(s) : J96.21 - Acute and chronic respiratory failure with hypoxia; J96.22 - Acute and chronic respiratory failure with hypercapnia; J96.22 - Acute and chronic respiratory failure with hypercapnia; J96.22 - Acute and chronic respiratory failure with hypercapnia Is this a current diagnosis for this admission?: Yes (2) Morbid (severe) obesity due to excess calories Is this a current diagnosis for this admission?: Yes Plan: Patient is advised for weight loss. (3) Right heart failure due to pulmonary hypertension Is this a current diagnosis for this admission?: Yes Plan: Her travel clerk. Patient is to follow-up with her lung doctor.
[2017-11-20] MEDS: ACETAMINOPHEN 325 MG TABLET PO PRN (21:15)
[2017-11-21] MEDS: IPRATROPIUM/ALBUTEROL 0.5-2.5 MG/3 ML AMPUL NEB SCH ×5 (00:41→16:11)
[2017-11-21] MEDS: ENOXAPARIN SODIUM INJ 40 MG/0.4 ML DISP.SYRIN SUBCUT SCH (09:55)
[2017-11-21] MEDS: PREDNISONE 20 MG TABLET PO SCH (09:55)
[2017-11-21] MEDS: FUROSEMIDE 20 MG TABLET PO SCH (09:55)
[2017-11-21 12:59] LABS: ABSOLUTE EOSINOPHILS # (AUTO) 0.2 10^3/uL (0.0-0.6); ABSOLUTE LYMPHOCYTES (AUTO) 1.5 10^3/uL (0.5-4.7); ABSOLUTE MONOCYTES (AUTO) 0.9 10^3/uL (0.1-1.4); ABSOLUTE NEUT (AUTO) 3.7 10^3/uL (1.7-8.2); BASOPHILS % (AUTO) 0.6 % (0-2); EOSINOPHILS % (AUTO) 3.6 % (0-6); HEMATOCRIT 39.2 % (36.0-47.0); LYMPHOCYTES % (AUTO) 23.6 % (13-45); MEAN CORPUSCULAR HEMOGLOBIN 22.7 pg (27.0-33.4); MEAN CORPUSCULAR HGB CONC 30.5 g/dL (32.0-36.0); MEAN CORPUSCULAR VOLUME 74 fl (80-97); MONOCYTES % (AUTO) 14.6 % (3-13); PLATELET COUNT 268 10^3/uL (150-450); RED BLOOD COUNT 5.26 10^6/uL (3.72-5.28); RED CELL DISTRIBUTION WIDTH 17.7 % (11.5-14.0); SEGMENTED NEUTROPHILS % (AUTO) 57.6 % (42-78); TOTAL CELLS COUNTED % (AUTO) 100 %; WHITE BLOOD COUNT 6.3 10^3/uL (4.0-10.5)
[2017-11-21 13:23] LABS: ALANINE AMINOTRANSFERASE 26 U/L (9-52); ALBUMIN 3.9 g/dL (3.5-5.0); ALKALINE PHOSPHATASE 81 U/L (38-126); ANION GAP 10 (5-19); ASPARTATE AMINO TRANSFERASE 25 U/L (14-36); BILIRUBIN,DIRECT 0.3 mg/dL (0.0-0.4); BILIRUBIN,TOTAL 0.5 mg/dL (0.2-1.3); BLOOD UREA NITROGEN 25 mg/dL (7-20); CALCIUM 8.9 mg/dL (8.4-10.2); CARBON DIOXIDE 39 mmol/L (22-30); CHLORIDE 90 mmol/L (98-107); GLUCOSE 98 mg/dL (75-110); PHOSPHORUS 4.1 mg/dL (2.5-4.5); POTASSIUM 4.5 mmol/L (3.6-5.0); SODIUM 139.4 mmol/L (137-145); TOTAL PROTEIN 8.2 g/dL (6.3-8.2)
--- NOTE | 2017-11-21 14:46 | PDOC DISCHARGE SUMMARY ---
General - Admit/Disc Date/PCP Admission Date/Primary Care Provider: 11/15/17 14:56 Discharge Date: 11/21/17 - Discharge Diagnosis (1) Moderate to severe pulmonary hypertension Is this a current diagnosis for this admission?: Yes Summary: Patient states that she has been advised to get a sleep study done on an outpatient basis. We will schedule for that (2) Morbid obesity with BMI of 50.0-59.9, adult Is this a current diagnosis for this admission?: Yes Summary: States she is aware that she has to lose weight and has gained a lot of weight Patient to be provided literature on lifestyle modification for weight loss. She currently patient's morbid obesity has become detrimental factor for her causing her to have obesity hypoventilation syndrome Patient also found to have hemoglobin A1c of six-point and diagnosed with prediabetes. (3) Acute respiratory failure with hypoxia and hypercapnia Is this a current diagnosis for this admission?: Yes Summary: He was being closely managed by last marker Dr. Hernandez. Patient is to continue using her trilogy with oxygen as advised by her last marker. She is also advised to have a sleep study as an outpatient. (4) Sleep apnea Is this a current diagnosis for this admission?: Yes Summary: Patient is at high risk for obstructive sleep apnea and is to have an outpatient sleep study with CPAP titration. - Additional Information Resuscitation Status: Full Code Discharge Diet: Cardiac Discharge Activity: Activity As Tolerated Prescriptions: Furosemide [Lasix 20 mg Tablet] 20 mg PO DAILY #30 tablet Methylprednisolone [Medrol Dosepack (4 mg/Tab) 21 Tab/Dosepak] 4 mg PO ASDIR PRN #21 tab.[email or web address] PRN Reason: Home Medications: Albuterol Sulfate [Albuterol Sulfate 2.5mg/3 mL] 1 vial IH Q12 11/15/17 Furosemide [Lasix 20 mg Tablet] 20 mg PO DAILY #30 tablet 11/21/17 Methylprednisolone [Medrol Dosepack (4 mg/Tab) 21 Tab/Dosepak] 4 mg PO ASDIR PRN #21 tab.ds.pk 11/21/17 History of Present Illness History of Present Illness: AMALIA ABDI is a 46 year old female Hospital Course Hospital Course: Patient is a 46-year-old morbidly obese -[place] female admitted by hospitalist physician with complaints of shortness of breath productive cough orthopnea with bilateral lower extremity swelling. On arrival patient was hypoxic on room air, initial CT and chest x-ray were negative for PE. She was seen by last marker and started on BiPAP she was found to be hypoxic and hypercarbic acute respiratory failure. Patient was started on BiPAP, steroids and nebulizer and low-dose diuretic therapy. Since hospital course has been stable, comprehensive metabolic panel has shown improvement in the carbon dioxide level, CMP also showed a A1c that is elevated at 6.0 patient is prediabetic and at high risk for diabetes. Patient's discharge has been delayed due to trilogy oxygen requirement prior to discharge. Case management patient has received her respiratory supplies as part of her discharge recommendation. Physical Exam Vital Signs: Temp Pulse Resp BP Pulse Ox 97.8 F 68 14 99/57 L 96 11/21/17 11:09 11/21/17 12:06 11/21/17 12:06 11/21/17 11:09 11/21/17 12:06 Intake & Output 11/20/17 11/21/17 11/22/17 06:59 06:59 06:59 Intake Total 1460 596 236 Output Total 750 1400 Balance 710 -804 236 Weight 343 lb 11.21 oz 343 lb 0.628 oz General appearance: PRESENT: no acute distress, morbidly obese Head exam: PRESENT: atraumatic, normocephalic Eye exam: PRESENT: EOMI Ear exam: PRESENT: normal external ear exam Respiratory exam: PRESENT: clear to auscultation marcelino. ABSENT: accessory muscle use, retraction, wheezes Cardiovascular exam: PRESENT: RRR GI/Abdominal exam: ABSENT: distended, soft, tenderness Rectal exam: PRESENT: deferred Extremities exam: ABSENT: pedal edema Neurological exam: PRESENT: alert, awake Psychiatric exam: PRESENT: appropriate affect. ABSENT: agitated Results Laboratory Results: 11/20/17 04:59 11/20/17 04:59 11/19/17 10:22 Creatine Kinase 52 Labs- Entire Visit 11/14/17 11/14/17 11/14/17 23:54 23:54 23:54 WBC 8.3 RBC 4.87 Hgb 11.1 L Hct 37.2 MCV 76 L MCH 22.7 L MCHC 29.8 L RDW 17.6 H Plt Count 306 Seg Neutrophils % 66.2 Lymphocytes % 17.7 Monocytes % 11.7 Eosinophils % 4.0 Basophils % 0.4 Absolute Neutrophils 5.5 Absolute Lymphocytes 1.5 Absolute Monocytes 1.0 Absolute Eosinophils 0.3 Absolute Basophils 0.0 Carbonic Acid HCO3/H2CO3 Ratio ABG pH ABG pCO2 ABG pO2 ABG HCO3 ABG Total CO2 ABG O2 Saturation ABG Base Excess FiO2 Sodium 141.8 Potassium 5.1 H Chloride 96 L Carbon Dioxide 36 H Anion Gap 10 BUN 26 H Creatinine 1.17 Est GFR ( Amer) > 60 Est GFR (Non-Af Amer) 50 L Glucose 109 Hemoglobin A1c % Calcium 8.6 Phosphorus Magnesium Total Bilirubin 0.4 Direct Bilirubin 0.3 Neonat Total Bilirubin Not Reportable Neonat Direct Bilirubin Not Reportable Neonat Indirect Bili Not Reportable AST 23 ALT 17 Alkaline Phosphatase 88 Creatine Kinase 160 H CK-MB (CK-2) 1.52 Troponin I < 0.012 NT-Pro-B Natriuret Pep 136 H Total Protein 7.7 Albumin 3.6 TSH Free T4 Free T3 pg/mL Urine Color Urine Appearance Urine pH Ur Specific [place] Urine Protein Urine Glucose (UA) Urine Ketones Urine Blood Urine Nitrite Urine Bilirubin Urine Urobilinogen Ur Leukocyte Esterase Urine WBC (Auto) Urine RBC (Auto) Squamous Epi Cells Auto Urine Mucus (Auto) Urine Ascorbic Acid 11/15/17 11/15/17 11/15/17 03:45 03:45 05:50 WBC RBC Hgb Hct MCV MCH MCHC RDW Plt Count Seg Neutrophils % Lymphocytes % Monocytes % Eosinophils % Basophils % Absolute Neutrophils Absolute Lymphocytes Absolute Monocytes Absolute Eosinophils Absolute Basophils Carbonic Acid 3.11 H HCO3/H2CO3 Ratio 12:1 ABG pH 7.20 L* ABG pCO2 103.2 H* ABG pO2 84.1 ABG HCO3 39.0 H ABG Total CO2 42.1 H ABG O2 Saturation 93.0 L ABG Base Excess 7.3 FiO2 3L Sodium 142.6 Potassium 4.9 Chloride 97 L Carbon Dioxide 38 H Anion Gap 8 BUN 26 H Creatinine 1.18 Est GFR ( Amer) > 60 Est GFR (Non-Af Amer) 50 L Glucose 124 H Hemoglobin A1c % Calcium 8.3 L Phosphorus Magnesium Total Bilirubin Direct Bilirubin Neonat Total Bilirubin Neonat Direct Bilirubin Neonat Indirect Bili AST ALT Alkaline Phosphatase Creatine Kinase CK-MB (CK-2) Troponin I < 0.012 NT-Pro-B Natriuret Pep Total Protein Albumin TSH Free T4 Free T3 pg/mL Urine Color Urine Appearance Urine pH Ur Specific [place] Urine Protein Urine Glucose (UA) Urine Ketones Urine Blood Urine Nitrite Urine Bilirubin Urine Urobilinogen Ur Leukocyte Esterase Urine WBC (Auto) Urine RBC (Auto) Squamous Epi Cells Auto Urine Mucus (Auto) Urine Ascorbic Acid 11/15/17 11/16/17 11/16/17 10:30 06:10 13:10 WBC RBC Hgb Hct MCV MCH MCHC RDW Plt Count Seg Neutrophils % Lymphocytes % Monocytes % Eosinophils % Basophils % Absolute Neutrophils Absolute Lymphocytes Absolute Monocytes Absolute Eosinophils Absolute Basophils Carbonic Acid 2.71 H 2.91 H HCO3/H2CO3 Ratio 13:1 15:1 ABG pH 7.24 L 7.30 L ABG pCO2 89.9 H* 96.6 H* ABG pO2 77.7 L 91.1 ABG HCO3 37.7 H 46.1 H ABG Total CO2 40.4 H 49.1 H ABG O2 Saturation 92.4 L 95.5 ABG Base Excess 7.0 15.4 FiO2 3L 35% Sodium 140.6 Potassium 5.7 H Chloride 93 L Carbon Dioxide 39 H Anion Gap 9 BUN 34 H Creatinine 0.96 Est GFR ( Amer) > 60 Est GFR (Non-Af Amer) > 60 Glucose 153 H Hemoglobin A1c % Calcium 8.7 Phosphorus Magnesium Total Bilirubin Direct Bilirubin Neonat Total Bilirubin Neonat Direct Bilirubin Neonat Indirect Bili AST ALT Alkaline Phosphatase Creatine Kinase CK-MB (CK-2) Troponin I NT-Pro-B Natriuret Pep Total Protein Albumin TSH Free T4 Free T3 pg/mL Urine Color Urine Appearance Urine pH Ur Specific [place] Urine Protein Urine Glucose (UA) Urine Ketones Urine Blood Urine Nitrite Urine Bilirubin Urine Urobilinogen Ur Leukocyte Esterase Urine WBC (Auto) Urine RBC (Auto) Squamous Epi Cells Auto Urine Mucus (Auto) Urine Ascorbic Acid 11/16/17 11/17/17 11/17/17 16:51 04:27 09:09 WBC RBC Hgb Hct MCV MCH MCHC RDW Plt Count Seg Neutrophils % Lymphocytes % Monocytes % Eosinophils % Basophils % Absolute Neutrophils Absolute Lymphocytes Absolute Monocytes Absolute Eosinophils Absolute Basophils Carbonic Acid 2.90 H HCO3/H2CO3 Ratio 16:1 ABG pH 7.31 L ABG pCO2 96.3 H* ABG pO2 103.7 H ABG HCO3 47.1 H ABG Total CO2 50.0 H ABG O2 Saturation 96.8 ABG Base Excess 16.5 FiO2 35% Sodium Potassium 5.3 H 5.0 Chloride Carbon Dioxide Anion Gap BUN Creatinine Est GFR ( Amer) Est GFR (Non-Af Amer) Glucose Hemoglobin A1c % Calcium Phosphorus Magnesium Total Bilirubin Direct Bilirubin Neonat Total Bilirubin Neonat Direct Bilirubin Neonat Indirect Bili AST ALT Alkaline Phosphatase Creatine Kinase CK-MB (CK-2) Troponin I NT-Pro-B Natriuret Pep Total Protein Albumin TSH Free T4 Free T3 pg/mL Urine Color Urine Appearance Urine pH Ur Specific [place] Urine Protein Urine Glucose (UA) Urine Ketones Urine Blood Urine Nitrite Urine Bilirubin Urine Urobilinogen Ur Leukocyte Esterase Urine WBC (Auto) Urine RBC (Auto) Squamous Epi Cells Auto Urine Mucus (Auto) Urine Ascorbic Acid 11/18/17 11/19/17 11/19/17 14:00 10:22 10:22 WBC 8.1 RBC 5.32 H Hgb 12.1 Hct 40.1 MCV 75 L MCH 22.7 L MCHC 30.1 L RDW 18.1 H Plt Count 264 Seg Neutrophils % 61.2 Lymphocytes % 22.9 Monocytes % 13.4 H Eosinophils % 1.9 Basophils % 0.6 Absolute Neutrophils 4.9 Absolute Lymphocytes 1.9 Absolute Monocytes 1.1 Absolute Eosinophils 0.2 Absolute Basophils 0.0 Carbonic Acid HCO3/H2CO3 Ratio ABG pH ABG pCO2 ABG pO2 ABG HCO3 ABG Total CO2 ABG O2 Saturation ABG Base Excess FiO2 Sodium 140.4 Potassium 4.3 Chloride 89 L Carbon Dioxide 40 H* Anion Gap 11 BUN 33 H Creatinine 0.99 Est GFR ( Amer) > 60 Est GFR (Non-Af Amer) > 60 Glucose 116 H Hemoglobin A1c % Calcium 8.8 Phosphorus 3.5 Magnesium 2.6 H Total Bilirubin 0.7 Direct Bilirubin 0.3 Neonat Total Bilirubin Not Reportable Neonat Direct Bilirubin Not Reportable Neonat Indirect Bili Not Reportable AST 17 ALT 20 Alkaline Phosphatase 81 Creatine Kinase 52 CK-MB (CK-2) Troponin I NT-Pro-B Natriuret Pep Total Protein 8.5 H Albumin 4.0 TSH 2.46 Free T4 1.16 Free T3 pg/mL 2.48 L Urine Color Urine Appearance Urine pH Ur Specific [place] Urine Protein Urine Glucose (UA) Urine Ketones Urine Blood Urine Nitrite Urine Bilirubin Urine Urobilinogen Ur Leukocyte Esterase Urine WBC (Auto) Urine RBC (Auto) Squamous Epi Cells Auto Urine Mucus (Auto) Urine Ascorbic Acid 11/19/17 11/20/17 11/20/17 10:40 04:59 04:59 WBC 8.1 RBC 5.04 Hgb 11.8 L Hct 37.9 MCV 75 L MCH 23.4 L MCHC 31.1 L RDW 17.7 H Plt Count 272 Seg Neutrophils % 66.3 Lymphocytes % 18.1 Monocytes % 13.4 H Eosinophils % 1.8 Basophils % 0.4 Absolute Neutrophils 5.4 Absolute Lymphocytes 1.5 Absolute Monocytes 1.1 Absolute Eosinophils 0.1 Absolute Basophils 0.0 Carbonic Acid 2.65 H HCO3/H2CO3 Ratio 17:1 ABG pH 7.35 ABG pCO2 88.2 H* ABG pO2 80.8 ABG HCO3 47.2 H ABG Total CO2 49.9 H ABG O2 Saturation 94.6 ABG Base Excess 17.2 FiO2 2L Sodium 139.3 Potassium 4.8 Chloride 90 L Carbon Dioxide 44 H* Anion Gap 5 BUN 29 H Creatinine 0.87 Est GFR ( Amer) > 60 Est GFR (Non-Af Amer) > 60 Glucose 91 Hemoglobin A1c % Calcium 8.6 Phosphorus 4.5 Magnesium 2.8 H Total Bilirubin 0.6 Direct Bilirubin 0.3 Neonat Total Bilirubin Not Reportable Neonat Direct Bilirubin Not Reportable Neonat Indirect Bili Not Reportable AST 17 ALT 21 Alkaline Phosphatase 80 Creatine Kinase CK-MB (CK-2) Troponin I NT-Pro-B Natriuret Pep Total Protein 7.7 Albumin 3.7 TSH Free T4 Free T3 pg/mL Urine Color Urine Appearance Urine pH Ur Specific [place] Urine Protein Urine Glucose (UA) Urine Ketones Urine Blood Urine Nitrite Urine Bilirubin Urine Urobilinogen Ur Leukocyte Esterase Urine WBC (Auto) Urine RBC (Auto) Squamous Epi Cells Auto Urine Mucus (Auto) Urine Ascorbic Acid 11/20/17 11/20/17 11/20/17 04:59 10:00 10:21 WBC RBC Hgb Hct MCV MCH MCHC RDW Plt Count Seg Neutrophils % Lymphocytes % Monocytes % Eosinophils % Basophils % Absolute Neutrophils Absolute Lymphocytes Absolute Monocytes Absolute Eosinophils Absolute Basophils Carbonic Acid 2.42 H HCO3/H2CO3 Ratio 17:1 ABG pH 7.34 L ABG pCO2 80.5 H* ABG pO2 78.6 L ABG HCO3 42.7 H ABG Total CO2 45.1 H ABG O2 Saturation 94.3 ABG Base Excess 13.4 FiO2 2L Sodium Potassium Chloride Carbon Dioxide Anion Gap BUN Creatinine Est GFR ( Amer) Est GFR (Non-Af Amer) Glucose Hemoglobin A1c % 6.0 Calcium Phosphorus Magnesium Total Bilirubin Direct Bilirubin Neonat Total Bilirubin Neonat Direct Bilirubin Neonat Indirect Bili AST ALT Alkaline Phosphatase Creatine Kinase CK-MB (CK-2) Troponin I NT-Pro-B Natriuret Pep Total Protein Albumin TSH Free T4 Free T3 pg/mL Urine Color YELLOW Urine Appearance CLEAR Urine pH 8.0 Ur Specific [place] 1.015 Urine Protein NEGATIVE Urine Glucose (UA) NEGATIVE Urine Ketones NEGATIVE Urine Blood NEGATIVE Urine Nitrite NEGATIVE Urine Bilirubin NEGATIVE Urine Urobilinogen NEGATIVE Ur Leukocyte Esterase NEGATIVE Urine WBC (Auto) 0 Urine RBC (Auto) 0 Squamous Epi Cells Auto 1 Urine Mucus (Auto) RARE Urine Ascorbic Acid NEGATIVE 11/21/17 11/21/17 12:39 12:39 WBC 6.3 RBC 5.26 Hgb 12.0 Hct 39.2 MCV 74 L MCH 22.7 L MCHC 30.5 L RDW 17.7 H Plt Count 268 Seg Neutrophils % 57.6 Lymphocytes % 23.6 Monocytes % 14.6 H Eosinophils % 3.6 Basophils % 0.6 Absolute Neutrophils 3.7 Absolute Lymphocytes 1.5 Absolute Monocytes 0.9 Absolute Eosinophils 0.2 Absolute Basophils 0.0 Carbonic Acid HCO3/H2CO3 Ratio ABG pH ABG pCO2 ABG pO2 ABG HCO3 ABG Total CO2 ABG O2 Saturation ABG Base Excess FiO2 Sodium 139.4 Potassium 4.5 Chloride 90 L Carbon Dioxide 39 H Anion Gap 10 BUN 25 H Creatinine 0.91 Est GFR ( Amer) > 60 Est GFR (Non-Af Amer) > 60 Glucose 98 Hemoglobin A1c % Calcium 8.9 Phosphorus 4.1 Magnesium 2.6 H Total Bilirubin 0.5 Direct Bilirubin 0.3 Neonat Total Bilirubin Not Reportable Neonat Direct Bilirubin Not Reportable Neonat Indirect Bili Not Reportable AST 25 ALT 26 Alkaline Phosphatase 81 Creatine Kinase CK-MB (CK-2) Troponin I NT-Pro-B Natriuret Pep Total Protein 8.2 Albumin 3.9 TSH Free T4 Free T3 pg/mL Urine Color Urine Appearance Urine pH Ur Specific [place] Urine Protein Urine Glucose (UA) Urine Ketones Urine Blood Urine Nitrite Urine Bilirubin Urine Urobilinogen Ur Leukocyte Esterase Urine WBC (Auto) Urine RBC (Auto) Squamous Epi Cells Auto Urine Mucus (Auto) Urine Ascorbic Acid Impressions: Chest X-Ray 11/14/17 23:31 IMPRESSION: There is no acute pleural-parenchymal process seen in the imaged lung smiley. Location of Interpretation: Teleradiology Chest/Abdomen CTA 11/15/17 01:39 IMPRESSION: No evidence of acute PE TECHNICAL DOCUMENTATION: Quality ID # [id number]: Final reports with documentation of one or more dose reduction techniques (e.g., Automated exposure control, adjustment of the mA and/or kV according to patient size, use of iterative reconstruction technique) 2010 [employer]- All Rights Reserved Qualifiers - * PATIENT BEING DISCHARGED WITH ANY OF THE FOLLOWING DIAGNOSIS: No Plan Time Spent: Less than 30 Minutes
[2017-11-21 16:52] VITALS: BP 131/61
== END 2017-11-21 18:31 | disposition home or self-care (01) | DRG 314 ==
LOC: ER 22:46 → EH 11-15 03:34 → INTOOBSV 11-15 03:34 → 3S 11-15 04:42 → OBSVTOIN 11-15 14:56
PROVIDERS: ADMIT Internal Medicine; ATTEND Internal Medicine
PROC: 5A09557 Assistance with Respiratory Ventilation, Greater than 96 Consecutive Hours, Continuous Positive Airway Pressure (ICD-10-PCS; principal; 2017-11-15)
DX: I27.21 Secondary pulmonary arterial hypertension (principal); J96.22 Acute and chronic respiratory failure with hypercapnia; J96.21 Acute and chronic respiratory failure with hypoxia; Z68.43 Body mass index [BMI] 50.0-59.9, adult; J45.901 Unspecified asthma with (acute) exacerbation; E66.2 Morbid (severe) obesity with alveolar hypoventilation; I10 Essential (primary) hypertension; M13.862 Other specified arthritis, left knee; Z83.3 Family history of diabetes mellitus; Z82.49 Family history of ischemic heart disease and other diseases of the circulatory system; Z80.9 Family history of malignant neoplasm, unspecified; F40.240 Claustrophobia; R60.9 Edema, unspecified
CPT/HCPCS: 36415; 36600; 71045; 71275; 80048; 80053; 81001; 82550; 82553; 82803; 83036; 83735; 83880; 84100; 84132; 84439; 84443; 84481; 84484; 85025; 93005; 93010; 94640; 94660; 96374; 99291; G0378; J1650; J1940; J2920; J2930; J3490; J7512; J7620

== ENCOUNTER → 2017-12-11 | Outpatient (CLI) | payer BC ==
--- NOTE | 2017-12-11 20:24 | XCELERA REPORT ---
[address] [address] Transthoracic Echocardiogram Report Name: AMALIA ABDI Age: 47 yrs Gender: Female : 1970 Patient Status: Outpatient Patient Location: [facility] Study Date: 12/11/2017 10:28 AM Height: 64 in Weight: 317 lb BSA: 2.4 m2 Reason For Study: CHF Ordering Physician: ASAEL SUAREZ Performed By: Maria G Mathew Interpretation Summary Very poor study.pt 317# and only 5'4" No signif post pericardial effusion AV poorly visualized, probably 3 cusps, no increased peak AV velocity to suggest , the RCC is thickened. No AR seen MV shows no MS or MR, and no LA enlargement. LV is only seen in PLAX , no apical 2 chamber view, poor endocardial definition in Apical 4 chamber view and LV apex not visualized. Henc incomplete LV segmental analysis. LVEF is normal on PLAX view, and no LV enlargement, no LVDD. R heart poorly seen. TR poorly seen, no pulm hypertension.RA size is normal on subcostal view. Due to this poor study, accurate LVEF not possible, ovrerall probably normal. MMode/2D Measurements & Calculations RVDd: 2.7 cm LVIDd: 4.4 cm FS: 38.7 % Ao root diam: 2.5 cm IVSd: 0.96 cm LVIDs: 2.7 cm EDV(Teich): 89.5 ml LVPWd: 0.91 cm ESV(Teich): 27.5 ml Ao root area: 5.1 cm2 LA dimension: 2.9 cm EF(Teich): 69.2 % Doppler Measurements & Calculations MV E max dmitri: MV P1/2t max dmitri: Ao V2 max: LV V1 max P.5 cm/sec 139.6 cm/sec 158.1 cm/sec 4.4 mmHg MV A max dmitri: MV P1/2t: 58.6 msec Ao max PG: LV V1 max: 69.6 cm/sec MVA(P1/2t): 3.8 cm2 10.0 mmHg 104.9 cm/sec MV E/A: 1.5 MV dec slope: 698.3 cm/sec2 MV dec time: 0.21 sec PA V2 max: TR max dmitri: MV P1/2t-pr_phl: 129.0 cm/sec 219.6 cm/sec 58.6 msec PA max P.7 mmHgTR max P.3 mmHg Left Ventricle The left ventricle is normal in size. There is normal left ventricular wall thickness. The left ventricular ejection fraction is normal. based on PLAX ouly, no Biplane EF was done, A2 Chamber view not available,. Doppler measurements suggest normal left ventricular diastolic function. Not all wall segments were well visualized. see pictoral LV segment analysis. The left ventricular apex is not well visualized. Right Ventricle The right ventricle is not well visualized secondary to technical limitations. Atria The right atrium is normal. The left atrial size is normal. Mitral Valve The mitral valve is grossly normal. There is no evidence of mitral valve prolapse. There is no mitral valve stenosis. There is no mitral regurgitation noted. Tricuspid Valve The tricuspid valve is not well visualized secondary to technical limitations. Pulmonic Valve There is no pulmonic valvular regurgitation. Great Vessels The aortic root is normal size. Effusions There is no pericardial effusion. I WMSI = 1.14 % Normal = 86 Segments Size X - Cannot 2 - 4 - 1-2 small Interpret 1 - Normal Hypokinetic 3 - AkineticDyskinetic 3-5 moderate 5 - 6-14 large Aneurysmal 15-16 diffuse : ASAEL SUAREZ > Robbi Desai
== END ==
LOC: SP 10:03
PROVIDERS: ATTEND Internal Medicine
DX: I50.9 Heart failure, unspecified (principal)
CPT/HCPCS: 93306

== ENCOUNTER → 2018-01-20 | Outpatient (CLI) | payer BC ==
[2018-01-20 14:21] LABS: ANION GAP 9 (5-19); BLOOD UREA NITROGEN 22 mg/dL (7-20); CALCIUM 9.6 mg/dL (8.4-10.2); CARBON DIOXIDE 35 mmol/L (22-30); CHLORIDE 98 mmol/L (98-107); GLUCOSE 106 mg/dL (75-110); POTASSIUM 4.6 mmol/L (3.6-5.0); SODIUM 141.9 mmol/L (137-145)
== END ==
LOC: OD 13:14
PROVIDERS: ATTEND Internal Medicine
DX: N19 Unspecified kidney failure (principal)
CPT/HCPCS: 36415; 80048; 83735

== ENCOUNTER → 2018-04-01 | Outpatient (CLI) | payer BC ==
--- NOTE | 2018-04-01 15:23 | RADIOLOGY REPORT (SQ) ---
EXAM DESCRIPTION: CHEST 2 VIEWS COMPLETED DATE/TIME: 04/01/2018 3:08 pm REASON FOR STUDY: R05 COUGH J44.9 CHRONIC OBSTRUCTIVE PULMONARY DISEASE, UNSPECIFIED COMPARISON: CT angio chest 11/15/2017 Chest films 05/17/2017, 11/14/2017 EXAM PARAMETERS: NUMBER OF VIEWS: two views TECHNIQUE: Digital Frontal and Lateral radiographic views of the chest acquired. RADIATION DOSE: NA LIMITATIONS: none FINDINGS: LUNGS AND PLEURA: No opacities, masses or pneumothorax. No pleural effusion. MEDIASTINUM AND HILAR STRUCTURES: No masses or contour abnormalities. HEART AND VASCULAR STRUCTURES: Heart normal size. No evidence for failure. BONES: No acute findings. HARDWARE: None in the chest. OTHER: No other significant finding. IMPRESSION: NO ACUTE RADIOGRAPHIC FINDING IN THE CHEST. TECHNICAL DOCUMENTATION: JOB ID: [id number] [employer]- All Rights Reserved Reading location - IP/workstation name: [email or web address]
== END ==
LOC: RAD 14:19
PROVIDERS: ATTEND Family Medicine Geriatric Medicine
DX: J44.9 Chronic obstructive pulmonary disease, unspecified (principal); R05 Cough
CPT/HCPCS: 71046

== ENCOUNTER → 2018-05-29 | Outpatient (CLI) | payer MEDICAID ==
--- NOTE | 2018-05-29 17:05 | RADIOLOGY REPORT (SQ) ---
EXAM DESCRIPTION: CHEST 2 VIEWS COMPLETED DATE/TIME: 05/29/2018 4:56 pm REASON FOR STUDY: J20.9 ACUTE BRONCHITIS, UNSPECIFIED J44.9 CHRONIC OBSTRUCTIVE PULMONARY DIS COMPARISON: 04/01/2018 EXAM PARAMETERS: NUMBER OF VIEWS: two views TECHNIQUE: Digital Frontal and Lateral radiographic views of the chest acquired. RADIATION DOSE: NA LIMITATIONS: none FINDINGS: LUNGS AND PLEURA: No opacities, masses or pneumothorax. No pleural effusion. MEDIASTINUM AND HILAR STRUCTURES: No masses or contour abnormalities. HEART AND VASCULAR STRUCTURES: Stable appearance. BONES: No acute findings. HARDWARE: None in the chest. OTHER: No other significant finding. IMPRESSION: 1. No significant interval changes since the prior examination dated 04/01/2018. No ac tonto apache findings. TECHNICAL DOCUMENTATION: JOB ID: [id number] [employer]- All Rights Reserved Reading location - IP/workstation name: [email or web address]
== END ==
LOC: RAD 16:43
PROVIDERS: ATTEND Family Medicine Geriatric Medicine
DX: J20.9 Acute bronchitis, unspecified (principal); J44.0 Chronic obstructive pulmonary disease with (acute) lower respiratory infection
CPT/HCPCS: 71046

== ENCOUNTER → 2018-09-26 | Outpatient (CLI) | payer MEDICAID ==
[2018-09-26 11:59] LABS: ABSOLUTE EOSINOPHILS # (AUTO) 0.2 10^3/uL (0.0-0.6); ABSOLUTE LYMPHOCYTES (AUTO) 1.2 10^3/uL (0.5-4.7); ABSOLUTE NEUT (AUTO) 3.3 10^3/uL (1.7-8.2); BASOPHILS % (AUTO) 0.5 % (0-2); EOSINOPHILS % (AUTO) 3.6 % (0-6); HEMATOCRIT 40.9 % (36.0-47.0); LYMPHOCYTES % (AUTO) 21.6 % (13-45); MEAN CORPUSCULAR HEMOGLOBIN 25.3 pg (27.0-33.4); MEAN CORPUSCULAR HGB CONC 31.7 g/dL (32.0-36.0); MEAN CORPUSCULAR VOLUME 80 fl (80-97); MONOCYTES % (AUTO) 16.6 % (3-13); PLATELET COUNT 198 10^3/uL (150-450); RED BLOOD COUNT 5.13 10^6/uL (3.72-5.28); RED CELL DISTRIBUTION WIDTH 15.4 % (11.5-14.0); SEGMENTED NEUTROPHILS % (AUTO) 57.7 % (42-78); TOTAL CELLS COUNTED % (AUTO) 100 %; WHITE BLOOD COUNT 5.7 10^3/uL (4.0-10.5)
[2018-09-26 12:23] LABS: ALANINE AMINOTRANSFERASE 20 U/L (9-52); ALBUMIN 4.6 g/dL (3.5-5.0); ALKALINE PHOSPHATASE 85 U/L (38-126); ANION GAP 10 (5-19); ASPARTATE AMINO TRANSFERASE 23 U/L (14-36); BILIRUBIN,DIRECT 0.3 mg/dL (0.0-0.4); BILIRUBIN,TOTAL 0.7 mg/dL (0.2-1.3); BLOOD UREA NITROGEN 26 mg/dL (7-20); CALCIUM 9.5 mg/dL (8.4-10.2); CARBON DIOXIDE 32 mmol/L (22-30); CHLORIDE 96 mmol/L (98-107); GAMMA-GLUTAMYL TRANSFERASE 14 U/L (8-78); GLUCOSE 101 mg/dL (75-110); LIPASE 179.9 U/L (23-300); POTASSIUM 4.6 mmol/L (3.6-5.0); SODIUM 137.7 mmol/L (137-145); TOTAL PROTEIN 8.9 g/dL (6.3-8.2)
== END ==
LOC: OD 11:16
PROVIDERS: ATTEND Internal Medicine
DX: D64.9 Anemia, unspecified (principal); R10.9 Unspecified abdominal pain
CPT/HCPCS: 36415; 80053; 82977; 83690; 85025

== ENCOUNTER → 2018-09-26 | Outpatient (CLI) | payer MEDICAID ==
--- NOTE | 2018-09-26 10:58 | WOMENS IMAGING REPORT ---
EXAM DESCRIPTION: U/S ABDOMEN TOTAL COMPLETED DATE/TIME: 09/26/2018 10:39 am REASON FOR STUDY: K81.9 CHOLECYSTITIS, UNSPECIFIED K81.9 CHOLECYSTITIS, UNSPECIFIED COMPARISON: 03/14/2015 TECHNIQUE: Dynamic and static grayscale images acquired of the abdomen and recorded on PACS. Additio nal selected color Doppler and spectral images recorded. Note: Study does not meet criteria for complete doppler/duplex scan LIMITATIONS: None. FINDINGS: PANCREAS: The visualized portions of the pancreas are normal in appearance. The body and tail are obscured by overlying bowel gas. LIVER: The liver is echogenic and enlarged. Liver measures 19 cm in cranial caudal dimensions. LIVER VASCULATURE: Normal directional flow of the main portal vein and hepatic veins. GALLBLADDER: No stones. Normal wall thickness. No pericholecystic fluid. ULTRASOUND-DETECTED DEL TORO'S SIGN: Negative. INTRAHEPATIC DUCTS AND COMMON DUCT: CBD and intrahepatic ducts normal caliber. No filling defects. INFERIOR VENA CAVA: Normal flow. AORTA: No aneurysm. RIGHT KIDNEY: Normal size. Normal echogenicity. No solid or suspicious masses. No hydronephros is. No calcifications. LEFT KIDNEY: Normal size. Normal echogenicity. No solid or suspicious masses. No hydronephrosi s. No calcifications. SPLEEN: Normal size. No solid masses. PERITONEAL AND PLEURAL SPACES: No ascites or effusions. OTHER: No other significant finding. IMPRESSION: Hepatomegaly with fatty infiltrated liver. No significant change from 2014. TECHNICAL DOCUMENTATION: JOB ID: [id number] [employer]- All Rights Reserved Reading location - IP/workstation name: [email or web address]
== END ==
LOC: WI 10:01
PROVIDERS: ATTEND Internal Medicine
DX: K81.9 Cholecystitis, unspecified (principal); K76.0 Fatty (change of) liver, not elsewhere classified; R16.0 Hepatomegaly, not elsewhere classified
CPT/HCPCS: 76700

== ENCOUNTER 2019-10-24 15:23 | Emergency (ER) | payer MEDICAID ==
[2019-10-24 16:16] LABS: ABSOLUTE EOSINOPHILS # (AUTO) 0.1 10^3/uL (0.0-0.6); ABSOLUTE LYMPHOCYTES (AUTO) 1.1 10^3/uL (0.5-4.7); ABSOLUTE MONOCYTES (AUTO) 1.1 10^3/uL (0.1-1.4); ABSOLUTE NEUT (AUTO) 5.8 10^3/uL (1.7-8.2); BASOPHILS % (AUTO) 0.4 % (0-2); EOSINOPHILS % (AUTO) 1.7 % (0-6); HEMATOCRIT 41.7 % (36.0-47.0); HEMOGLOBIN 13.2 g/dL (12.0-15.5); LYMPHOCYTES % (AUTO) 13.3 % (13-45); MEAN CORPUSCULAR HEMOGLOBIN 25.7 pg (27.0-33.4); MEAN CORPUSCULAR HGB CONC 31.8 g/dL (32.0-36.0); MEAN CORPUSCULAR VOLUME 81 fl (80-97); MONOCYTES % (AUTO) 13.5 % (3-13); PLATELET COUNT 241 10^3/uL (150-450); RED BLOOD COUNT 5.16 10^6/uL (3.72-5.28); RED CELL DISTRIBUTION WIDTH 14.8 % (11.5-14.0); SEGMENTED NEUTROPHILS % (AUTO) 71.1 % (42-78); TOTAL CELLS COUNTED % (AUTO) 100 %; WHITE BLOOD COUNT 8.2 10^3/uL (4.0-10.5)
[2019-10-24 16:41] LABS: ALBUMIN 4.4 g/dL (3.5-5.0); ALKALINE PHOSPHATASE 100 U/L (38-126); ANION GAP 9 (5-19); ASPARTATE AMINO TRANSFERASE 26 U/L (14-36); BILIRUBIN,TOTAL 0.6 mg/dL (0.2-1.3); BLOOD UREA NITROGEN 25 mg/dL (7-20); CARBON DIOXIDE 30 mmol/L (22-30); CHLORIDE 94 mmol/L (98-107); GLUCOSE 106 mg/dL (75-110); POTASSIUM 4.3 mmol/L (3.6-5.0)
[2019-10-24] MEDS ORDERED: NORMAL SALINE 1000 ML 1,000 ML IV ONE (16:52)
--- NOTE | 2019-10-24 18:11 | ER Document Report ---
ED General - General Chief Complaint: Abdominal Pain Stated Complaint: MUSCLE SPASMS Time Seen by Provider: 10/24/19 15:48 Primary Care Provider: NISSA VARGHESE MD [Primary Care Provider] - Follow up as needed TRAVEL OUTSIDE OF THE [place] IN LAST 30 DAYS: No - HPI Notes: Patient is a 48-year-old female who presents to the emergency department for evaluation. She got cramps in her neck, back, arms, legs earlier today. Happened at around 3 PM. She states this is happened in the past when her potassium was low. She states that she get some medication for pain while she w as being attended to by EMS. In particular she received Ativan. She is tired right now. The patient was noted to be a possible P why, but she states that she had to have a COVID test because she is going to have a diet under medical supervision through [employer]. She denies any fevers or chills. No cough no shortness of breath. She has been taking her medications as prescribed. - Related Data Allergies/Adverse Reactions: No Known Allergies Allergy (Verified 05/17/17 01:12) Home Medications: lasix, protonix, certrizine Past Medical History - General Information source: Patient - Social History Smoking Status: Never Smoker Chew tobacco use (# tins/day): No Frequency of alcohol use: None Drug Abuse: None Family History: DM, Hypertension, Other - Father of cancer Patient has homicidal ideation: No - Past Medical History Cardiac Medical History: Reports: Hx Hypertension Pulmonary Medical History: Reports: Hx Asthma, Hx Pneumonia Denies: Hx Tuberculosis Neurological Medical History: Denies: Hx Seizures Renal/ Medical History: Denies: Hx End Stage Renal Disease, Hx Peritoneal Dialysis GI Medical History: Reports: Hx Crohn's Disease. Denies: Hx Hepatitis, Hx Ulcerative Colitis Musculoskeletal Medical History: Reports Hx Arthritis - left knee Skin Medical History: Denies Hx Psoriasis Psychiatric Medical History: Denies: Hx Depression Traumatic Medical History: Denies: Hx Traumatic Brain Injury Infectious Medical History: Denies: Hx C-Diff, Hx Hepatitis Past Surgical History: Reports: Hx Hysterectomy, Hx Oral Surgery - Immunizations Hx Diphtheria, Pertussis, Tetanus Vaccination: Yes Review of Systems - Review of Systems Musculoskeletal: See HPI -: Yes All other systems reviewed and negative Physical Exam - Vital signs Vitals: Temp 98.2 F 10/24/19 15:23 - Notes Notes: This is an obese 48-year-old female who appears her stated age. She is drowsy, but GCS of 15, interactive with examiner. Vital signs reviewed, please refer to chart. Head is normocephalic, atraumatic. Pupils equal round, reactive to light. Neck is supple without meningismus. Heart is regular rate and rhythm. Lungs are clear to auscultation bilaterally. Abdomen is soft, nontender, normoactive bowel sounds throughout. Extremities without cyanosis, clubbing. Posterior calves are nontender. Peripheral pulses are equal. Skin is warm and dry. Patient is oriented x3. Moves all 4 extremity spontaneously. No gross facial asymmetry. Course - Re-evaluation Re-evalutation: 10/24/19 18:09 Patient presents to the emergency department for evaluation. She laboratory investigations including CBC, CMP, magnesium. She was found to be hyponatremic, likely secondary to dehydration. Her potassium and magnesium were otherwise normal. I will give her some IV fluids. She is currently stable. She is resting after the Ativan. We will have her follow-up with primary care, she is to return to the ED with worsening. 10/24/19 19:48 Patient's urinalysis is unremarkable. We will discharge her after IV fluids. - Vital Signs Vital signs: Temp Pulse Resp BP Pulse Ox 98.2 F 18 119/79 97 10/24/19 15:23 10/24/19 19:01 10/24/19 19:01 10/24/19 19:01 - Laboratory Result Diagrams: 10/24/19 16:00 10/24/19 16:00 Laboratory results interpreted by me: 10/24/19 10/24/19 16:00 16:00 MCH 25.7 L MCHC 31.8 L RDW 14.8 H [place] % (Auto) 13.5 H Sodium 132.6 L Chloride 94 L BUN 25 H Est GFR (MDRD) Non-Af 56 L Total Protein 9.0 H Discharge - Discharge Clinical Impression: Hyponatremia, Cramps, muscle, general Condition: Stable Disposition: HOME, SELF-CARE Instructions: Hyponatremia ([facility]) Additional Instructions: Stay hydrated. Follow-up with primary care. Return to the emergency department for worsening or new concerning symptoms of any sort. Referrals: NISSA VARGHESE MD [Primary Care Provider] - Follow up as needed
[2019-10-24 19:05] LABS: APPEARANCE,URINE CLEAR; BILIRUBIN,URINE NEGATIVE (NEGATIVE); COLOR,URINE COLORLESS; GLUCOSE, URINE NEGATIVE (NEGATIVE); KETONES,URINE NEGATIVE (NEGATIVE); LEUKOCYTE ESTERASE,URINE NEGATIVE (NEGATIVE); NITRITE,URINE NEGATIVE (NEGATIVE); PROTEIN,URINE NEGATIVE (NEGATIVE); URINE SPECIFIC GRAVITY 1.002; UROBILINOGEN,URINE NEGATIVE mg/dL (<2.0)
[2019-10-24 19:09] VITALS: BP 119/79
== END 2019-10-24 21:02 | disposition home or self-care (01) ==
LOC: ER 15:23
DX: E87.1 Hypo-osmolality and hyponatremia (principal); R25.2 Cramp and spasm; I10 Essential (primary) hypertension; J45.909 Unspecified asthma, uncomplicated; Z79.899 Other long term (current) drug therapy
CPT/HCPCS: 99283; 96360; 36415; 83690; 83735; 85025; 80053; 81001; J7030